=== PATIENT | female | born 1960 | race Caucasian/White ===

== ENCOUNTER 2016-11-07 16:37 | Emergency (ER) | payer OTHER, SELFPAY ==
[2016-11-07 16:48] VITALS: O2SAT 95
--- NOTE | 2016-11-07 17:24 | ERPHSYRPT ---
- History of Present Illness Time Seen by Provider: 11/07/16 16:42 Source: patient, family (sister) Patient Subjective Stated Complaint: lower back and bilat leg pain Triage Nursing Assessment: has chronic back pain and has been having rt and lt leg 'soreness and muscle spasms for days'. denies injury. pedal pulse present. states pain to back is a normal 7/10 daily so that pain is the same with increased deficit to bilat lower legs. Physician History: CC: leg cramping Hx: 56 y/o patient of Dr Stallworth on neurontin, norco, klonopin for chronic pain syndrome. She had 3 month hx of cramping in leg, worse at night. None today. Called the office to get a cream and was told had to wait on an appt. She has chronic back pain. No fall or injury. She takes cholesterol meds. She has tried to eat bananas. Chronic tingling in legs. Allergies/Adverse Reactions: No Known Drug Allergies Allergy (Verified 11/07/16 16:48) Home Medications: Aspirin 81 mg PO DAILY 01/13/12 [History] Hydrochlorothiazide 25 mg [hydroDIURIL 25 MG] 25 mg PO DAILY 01/13/12 [ History] Hydrocodone/Acetaminophen [[place] 10-325 Tablet] 1 tab PO QID 01/13/12 [History] Metformin HCl 500 mg [Glucophage 500 MG] 1,000 mg PO BIDWMEALS 01/13/12 [ History] Ramipril 2.5 mg PO DAILY 01/13/12 [History] Clonazepam 1 mg PO BID 10/02/14 [History] Simvastatin 40 mg [Zocor 40 mg] 40 mg PO QHS 08/28/15 [History] Gabapentin 600 mg PO TID 11/07/16 [History] Venlafaxine HCl [Venlafaxine HCl ER] 150 mg PO DAILY 11/07/16 [History] Hx Tetanus, Diphtheria Vaccination/Date Given: Yes Hx Influenza Vaccination/Date Given: Yes Hx Pneumococcal Vaccination/Date Given: Yes Immunizations Up to Date: Yes - Review of Systems Constitutional: No Fever, No Chills Musculoskeletal: Myalgias (legs), No Back Pain, No Neck Pain, No Joint Pain Skin: No Rash Neurological: Parasthesia (chronic in legs), No Focal Weakness, No Headache - Past Medical History Pertinent Past Medical History: Yes Neurological History: Other ENT History: No Pertinent History Cardiac History: High Cholesterol, Hypertension, Other Respiratory History: Sleep Apnea Endocrine Medical History: Diabetes Type II Musculoskeletal History: Degenerative Disk Disease, Other GI Medical History: No Pertinent History History: Other Psycho-Social History: Anxiety, Depression Female Reproductive Disorders: No Pertinent History Other Medical History: Chronic back pain. Neuropathy - Past Surgical History Past Surgical History: Yes Neuro Surgical History: No Pertinent History Cardiac: Cardiac Catheterization Respiratory: No Pertinent History Gastrointestinal: Cholecystectomy Genitourinary: No Pertinent History Musculoskeletal: Orthopedic Surgery Female Surgical History: Section, Hysterectomy Other Surgical History: cyst removed from ovaries. BUTCH - Social History Smoking Status: Current every day smoker How long have you smoked: 40years Exposure to second hand smoke: Yes Drug Use: none Patient Lives Alone: No - Female History Hx Now: No - Nursing Vital Signs Nursing Vital Signs: Initial Vital Signs Temperature 99 F Temperature Source Oral Respiratory Rate 18 Blood Pressure [Right Arm] 151/79 Pain Intensity [Left Calf] 6 Pain Intensity 7 - Physical Exam General Appearance: alert Eye Exam: PERRL/EOMI Ears, Nose, Throat Exam: moist mucous membranes Neck Exam: normal inspection, non-tender, supple Respiratory Exam: normal breath sounds Cardiovascular Exam: regular rate/rhythm Gastrointestinal/Abdomen Exam: soft, No tenderness, No distention Extremity Exam: normal inspection, normal range of motion, other (1+ bilateral DP pulses) Neurologic Exam: alert, oriented x 3, cooperative, sensation nml, No motor deficits Skin Exam: warm, dry, No rash SpO2 Interpretation: normal SpO2: 95 Oxygen Delivery: Room Air - Course Nursing assessment & vital signs reviewed: Yes Ordered Tests: Active Orders 24 hr Category Date Time Status BMP Stat Lab 11/07/16 17:25 Completed CK-Creatinine Phosphokinase Stat Lab 11/07/16 17:25 Completed Lab/Rad Data: Laboratory Result Diagrams 11/07/16 17:25 Laboratory Results 11/07/16 Range/Units 17:25 Sodium 139 (136-145) mEq/L Potassium 3.5 (3.5-5.1) mEq/L Chloride 102 (98-107) mEq/L Carbon Dioxide 27.4 (21-32) mEq/L Anion Gap 13.4 (5-15) MEQ/L BUN 11 (9-20) mg/dL Creatinine 0.86 (0.55-1.30) mg/dl Estimated GFR > 60 ML/MIN Glucose 217 H (70-110) MG/DL Calcium 8.5 (8.5-10.1) mg/dL Creatine Kinase 153 (26-192) U/L - Progress Progress Note: 11/07/16 17:23 Explained to pt that she is already on klonopin, norco, and high dose neurontin. She needs to see Dr Stallworth for her chronic issue. No sign of new back problem. Will check ck and K to rule abnormality metabolically which could be cause for her muscle cramping. 11/07/16 18:14 CK and K ok. Advised sugar a little high. She will use icy hot or bengay and continue meds as already prescribed by Dr Stallworth and have office follow up. Counseled pt/family regarding: lab results, diagnosis, need for follow-up - Departure Time of Disposition: 18:15 Departure Disposition: Home Clinical Impression: Leg cramps, Neuropathy Condition: Stable Critical Care Time: No Referrals: NIKOLAS STALLWORTH MD [Primary Care Provider] - Instructions: Diabetic Neuropathy Additional Instructions: Try [place] or icy hot. Continue your medications as already prescribed by Dr Stallworth. Follow up with Dr Stallworth.
[2016-11-07 17:59] LABS: ANION GAP 13.4 MEQ/L (5-15); BLOOD UREA NITROGEN 11 mg/dL (9-20); CHLORIDE 102 mEq/L (98-107); Carbon Dioxide 27.4 mEq/L (21-32); Glucose 217 MG/DL (70-110); Potassium 3.5 mEq/L (3.5-5.1); SODIUM 139 mEq/L (136-145)
[2016-11-07 18:47] VITALS: BP 126/83; PULSE 83
== END 2016-11-07 18:45 | disposition home or self-care (01) ==
LOC: ED 16:37
DX: R25.2 Cramp and spasm (principal); G62.9 Polyneuropathy, unspecified; M54.5 Low back pain; M79.662 Pain in left lower leg; M79.661 Pain in right lower leg; E78.00 Pure hypercholesterolemia, unspecified; I10 Essential (primary) hypertension; E11.9 Type 2 diabetes mellitus without complications; G47.30 Sleep apnea, unspecified
CPT/HCPCS: 36415; 80048; 82550; 99283

== ENCOUNTER 2016-11-12 13:52 | Observation (INO) | payer OTHER, SELFPAY ==
[2016-11-12] MEDS ORDERED: BABY ASPIRIN 81 MG CHEW PO ONE (14:11)
--- NOTE | 2016-11-12 14:19 | ERPHSYRPT ---
- History of Present Illness Time Seen by Provider: 11/12/16 14:06 Historian: patient Exam Limitations: no limitations Patient Subjective Stated Complaint: cp since 0900 Triage Nursing Assessment: mid sternal nonradiating chest pain since 0900. no diaphoresis with sob and nausea. states pain has been intermittent for weeks but stressful situation at home today caused cp to come and not leave. skin warm and dry. resp easy. tearful. pain worse with deep breath. Physician History: 56-year-old white female with history of high blood pressure, sleep apnea, diabetes, degenerative disc disease, hypercholesterolemia, anxiety, depression, chronic back pain, neuropathy Patient arrives with complaints of pain in the anterior chest which has been going off-and-on for 2 weeks she states that about 9:00 today she began having pain while being upset over her granddaughter she describes this pain as a dullness associated with shortness of breath and nausea he states that the pain she had been having for 2 weeks was going away with this was not. She is not having fevers no cough no abdominal pain. Past medical history includes high blood pressure sleep apnea degenerative disc disease diabetes hypercholesterolemia and anxiety, depression, chronic back pain, neuropathy, degenerative disc disease. Past surgical history includes cardiac catheter cholecystectomy hysterectomy and cyst removed from her ovaries. Social history positive tobacco use. Timing/Duration: today (9:00 this morning) Activities at Onset: emotional stress (upset over granddaughter) Quality: aching Location: substernal Chest Pain Radiation: no radiation Severity of Pain-Max: moderate Severity of Pain-Current: moderate Modifying Factors: Improves With: aspirin (took 81 mg of aspirin at hom[facility]is morning). Worsens With: antacids, breathing, coughing, defecating, eating, exertion, lying down, morphine, movement, nitroglycerin, oxygen, palpation, rest , sitting up, change in position Associated Symptoms: nausea, shortness of breath, No vomiting, No palpitations, No heartburn, No abdominal pain, No cough, No hurts to breathe, No diaphoresis, No chills, No fever, No fatigue, No weakness, No swelling/lump in chest, No syncope, No rash, No headache, No dizziness, No edema, No back pain Prior Chest Pain/Cardiac Workup: cardiac cath Nitro Today/Relief: no nitro taken today Aspirin Treatment Today: 81 mg x 1 (81 mg at home), 81 mg x 3 ( 243 mg in ER) Allergies/Adverse Reactions: No Known Drug Allergies Allergy (Verified 11/12/16 14:00) Home Medications: Aspirin 81 mg PO DAILY 01/13/12 [History] Hydrochlorothiazide 25 mg [hydroDIURIL 25 MG] 25 mg PO DAILY 01/13/12 [ History] Hydrocodone/Acetaminophen [[place] 10-325 Tablet] 1 tab PO QID 01/13/12 [History] Metformin HCl 500 mg [Glucophage 500 MG] 1,000 mg PO BIDWMEALS 01/13/12 [ History] Ramipril 2.5 mg PO DAILY 01/13/12 [History] Clonazepam 1 mg PO BID 10/02/14 [History] Simvastatin 40 mg [Zocor 40 mg] 40 mg PO QHS 08/28/15 [History] Gabapentin 600 mg PO TID 11/07/16 [History] Venlafaxine HCl [Venlafaxine HCl ER] 150 mg PO DAILY 11/07/16 [History] Hx Tetanus, Diphtheria Vaccination/Date Given: Yes Hx Influenza Vaccination/Date Given: No Hx Pneumococcal Vaccination/Date Given: No Immunizations Up to Date: Yes - Review of Systems Constitutional: No Fever, No Chills Eyes: No Symptoms Ears, Nose, & Throat: No Symptoms Respiratory: No Cough, No Dyspnea Cardiac: Chest Pain, Edema (feels like she has edema in her feet), No Palpitations, No Syncope, No Orthopnea Abdominal/Gastrointestinal: Nausea, No Abdominal Pain, No Vomiting, No Diarrhea , No Constipation, No Hematemesis, No Hematochezia, No Melena, No Dysphagia, No Appetite Changes Genitourinary Symptoms: No Dysuria Musculoskeletal: No Back Pain, No Neck Pain Skin: No Rash Neurological: No Symptoms Psychological: No Symptoms Endocrine: No Symptoms All Other Systems: Reviewed and Negative - Past Medical History Pertinent Past Medical History: Yes Neurological History: Other ENT History: No Pertinent History Cardiac History: High Cholesterol, Hypertension, Other Respiratory History: Sleep Apnea Endocrine Medical History: Diabetes Type II Musculoskeletal History: Degenerative Disk Disease, Other GI Medical History: No Pertinent History History: Other Psycho-Social History: Anxiety, Depression Female Reproductive Disorders: No Pertinent History Other Medical History: Chronic back pain. Neuropathy - Past Surgical History Past Surgical History: Yes Neuro Surgical History: No Pertinent History Cardiac: Cardiac Catheterization Respiratory: No Pertinent History Gastrointestinal: Cholecystectomy Genitourinary: No Pertinent History Musculoskeletal: Orthopedic Surgery Female Surgical History: Section, Hysterectomy Other Surgical History: cyst removed from ovaries. BUTCH - Social History Smoking Status: Current every day smoker How long have you smoked: 40years Exposure to second hand smoke: Yes Drug Use: none Patient Lives Alone: No - Female History Hx Now: No - Nursing Vital Signs Temperature: 98.0 F Temperature Source: Oral Pulse Rate: 92 Respiratory Rate: 18 Pain Intensity: 7 - Physical Exam General Appearance: mild distress, other (well-developed well-nourished white female tearful) Eye Exam: PERRL/EOMI, eyes nml inspection Ears, Nose, Throat Exam: normal ENT inspection, moist mucous membranes Neck Exam: normal inspection, non-tender, supple, full range of motion Respiratory Exam: normal breath sounds, lungs clear, No respiratory distress Cardiovascular Exam: regular rate/rhythm, normal heart sounds Gastrointestinal/Abdomen Exam: soft, No tenderness, No mass Back Exam: normal inspection, No CVA tenderness, No vertebral tenderness Extremity Exam: normal inspection, normal range of motion Neurologic Exam: alert, oriented x 3, cooperative, normal mood/affect, sensation nml, No motor deficits Skin Exam: normal color, warm, dry SpO2 Interpretation: normal (98%) SpO2: 98 Oxygen Delivery: Room Air - Course Nursing assessment & vital signs reviewed: Yes EKG Interpreted by Me: RATE (102 bpm), NORMAL AXIS, Other (EKG sinus rhythm [address] or T wave changes noted normal axis) - Radiology Exams Chest X-ray Interpretation: Discussed w/ radiologist (chest x-ray: Hyperinflated with right infrahilar infiltrate versus atelectasis. Remaining heart, lungs, and bony thorax unremarkable) Ordered Tests: Active Orders 24 hr Category Date Time Status Field Technical Specialist STAT Care 11/12/16 14:11 Active EKG-ER Only STAT Care 11/12/16 14:11 Active IV Insertion STAT Care 11/12/16 14:11 Active CHEST 1 VIEW (PORTABLE) Stat Exams 11/12/16 14:11 Completed CBC W DIFF Stat Lab 11/12/16 14:15 Completed CMP Stat Lab 11/12/16 14:15 Completed D-DIMER QUANTITATION Stat Lab 11/12/16 14:15 Completed TROPONIN Q3H Lab 11/12/16 14:30 Completed TROPONIN Q3H Lab 11/12/16 17:15 Ordered TROPONIN Q3H Lab 11/12/16 20:15 Ordered TROPONIN Q3H Lab 11/12/16 23:15 Ordered TROPONIN Q3H Lab 11/13/16 02:15 Ordered Medication Summary Discontinued Medications Generic Name Dose Route Start Last Admin Trade Name Freq PRN Reason Stop Dose Admin Aspirin 243 mg 11/12/16 14:11 11/12/16 14:20 Baby Aspirin 81 Mg Chew PO 11/12/16 14:12 243 mg STAT ONE Administration Lab/Rad Data: Laboratory Result Diagrams 11/12/16 14:15 11/12/16 14:15 Laboratory Results 11/12/16 11/12/16 11/12/16 Range/Units 14:30 14:15 14:15 WBC (4.0-10.5) K/mm3 RBC (4.1-5.4) M/mm3 Hgb (12.0-16.0) gm/dl Hct (35-47) % MCV (78-100) fl MCH (26-32) pg MCHC (32-36) g/dl RDW (11.5-14.0) % Plt Count (150-450) K/mm3 MPV (6-9.5) fl Gran % (36.0-66.0) % Lymphocytes % (24.0-44.0) % Monocytes % (0.0-12.0) % Eosinophils % (0.00-5.0) % Basophils % (0.0-0.4) % Basophils # (0-0.4) D-Dimer 0.52 H* (0.00-0.49) mg/L Sodium 140 (136-145) mEq/L Potassium 3.7 (3.5-5.1) mEq/L Chloride 103 (98-107) mEq/L Carbon Dioxide 23.6 (21-32) mEq/L Anion Gap 16.6 H (5-15) MEQ/L BUN 18 (9-20) mg/dL Creatinine 0.83 (0.55-1.30) mg/dl Estimated GFR > 60 ML/MIN Glucose 118 H (70-110) MG/DL Calcium 8.7 (8.5-10.1) mg/dL Total Bilirubin 0.5 (0.2-1.0) mg/dL AST 76 H (15-37) U/L ALT 63 (12-78) U/L Alkaline Phosphatase 76 (46-116) U/L Troponin I < 0.017 (0.000-0.056) ng/ml Serum Total Protein 8.4 H (6.4-8.2) gm/dL Albumin 3.4 (3.4-5.0) g/dL 11/12/16 Range/Units 14:15 WBC 8.3 (4.0-10.5) K/mm3 RBC 4.01 L (4.1-5.4) M/mm3 Hgb 11.9 L (12.0-16.0) gm/dl Hct 36.1 (35-47) % MCV 90.0 (78-100) fl MCH 29.6 (26-32) pg MCHC 33.0 (32-36) g/dl RDW 14.6 H (11.5-14.0) % Plt Count 106 L (150-450) K/mm3 MPV 12.2 H (6-9.5) fl Gran % 62.1 (36.0-66.0) % Lymphocytes % 32.4 (24.0-44.0) % Monocytes % 5.2 (0.0-12.0) % Eosinophils % 0.2 (0.00-5.0) % Basophils % 0.1 (0.0-0.4) % Basophils # 0.01 (0-0.4) D-Dimer (0.00-0.49) mg/L Sodium (136-145) mEq/L Potassium (3.5-5.1) mEq/L Chloride (98-107) mEq/L Carbon Dioxide (21-32) mEq/L Anion Gap (5-15) MEQ/L BUN (9-20) mg/dL Creatinine (0.55-1.30) mg/dl Estimated GFR ML/MIN Glucose (70-110) MG/DL Calcium (8.5-10.1) mg/dL Total Bilirubin (0.2-1.0) mg/dL AST (15-37) U/L ALT (12-78) U/L Alkaline Phosphatase (46-116) U/L Troponin I (0.000-0.056) ng/ml Serum Total Protein (6.4-8.2) gm/dL Albumin (3.4-5.0) g/dL - Progress Air Movement: fair Progress Note: 11/12/16 15:36 This is a 56-year-old white female with intermittent pain in her chest for 2 weeks. Described as an aching going on this time since 9:00 this morning associated with some shortness of breath some nausea. Patient's pain came on with stress. Troponin is normal EKG no acute changes. D-dimer slight elevation to 0.52, chest x-ray right infrahilar atelectasis versus infiltrate white count is normal patient without fevers Case is discussed with Dr. Nesbitt will place patient in observation telemetry continue aspirin Will obtain a CTA of the chest and abdomen during admission - Departure Time of Disposition: 15:38 Departure Disposition: Observation Clinical Impression: Chest pain Qualifiers: Chest pain type: unspecified Qualified Code(s): R07.9 - Chest pain, unspecified Condition: Fair Critical Care Time: No
[2016-11-12 14:21] LABS: BASOPHIL % 0.1 % (0.0-0.4); Eosinophil % 0.2 % (0.00-5.0); Granulocytes % 62.1 % (36.0-66.0); Lymphocytes % 32.4 % (24.0-44.0); Mean Platelet Volume 12.2 fl (6-9.5); Monocytes % 5.2 % (0.0-12.0); Platelet Count 106 K/mm3 (150-450); Red Blood Count 4.01 M/mm3 (4.1-5.4); Red Cell Distribution Width 14.6 % (11.5-14.0); White Blood Count 8.3 K/mm3 (4.0-10.5)
[2016-11-12 14:23] LABS: Mean Corpuscular Hemoglobin 29.6 pg (26-32)
--- NOTE | 2016-11-12 14:39 | XRAY ---
Indication: Chest pain. Comparison: November 22, 2015. Portable apical lordotic chest again hyperinflated with new subtle right infrahilar infiltrate versus atelectasis. Remaining heart, lungs, and bony thorax unremarkable.
[2016-11-12 14:44] LABS: ALBUMIN 3.4 g/dL (3.4-5.0); ALKALINE PHOSPHATASE 76 U/L (46-116); ANION GAP 16.6 MEQ/L (5-15); BILIRUBIN,TOTAL 0.5 mg/dL (0.2-1.0); BLOOD UREA NITROGEN 18 mg/dL (9-20); CHLORIDE 103 mEq/L (98-107); Carbon Dioxide 23.6 mEq/L (21-32); Glucose 118 MG/DL (70-110); Potassium 3.7 mEq/L (3.5-5.1); SGOT/AST 76 U/L (15-37); SGPT/ALT 63 U/L (12-78); SODIUM 140 mEq/L (136-145); Total Protein 8.4 gm/dL (6.4-8.2)
[2016-11-12] MEDS ORDERED: NovoLOG Insulin SQ PRN (16:10)
[2016-11-12] MEDS ORDERED: NovoLIN R SQ PRN (16:38)
--- NOTE | 2016-11-12 16:38 | PCM.HP ---
History of Present Illness - Chief Complaint Chief Complaint: chest pain History of Present Illness: is a 56 year old female who presented to the ER with chest pain that began early this morning, she described a sharp pain that is dull in the center of her chest. She also had some nausea. She admits to a great deal of stress over a grandchild that was living in her home that is 3 months old, mother of baby took him away and it has had her under a great deal of stress, she is tearful in talking about this incident. - Review of Systems Constitutional: No Fever, No Chills Respiratory: No Cough, No Short Of Breath Cardiac: Chest Pain Abdominal/Gastrointestinal: No Abdominal Pain, No Nausea, No Vomiting, No Diarrhea Psychological: Anxiety, No Suicidal Ideations, No Homicidal Ideations All Other Systems: Reviewed and Negative Medications & Allergies Home Medications: Home Medication List Aspirin 81 mg PO DAILY 01/13/12 [History Confirmed 11/12/16] Hydrochlorothiazide 25 mg [hydroDIURIL 25 MG] 25 mg PO DAILY 01/13/12 [ History Confirmed 11/12/16] Hydrocodone/Acetaminophen [[place] 10-325 Tablet] 1 tab PO QID 01/13/12 [History Confirmed 11/12/16] Metformin HCl 500 mg [Glucophage 500 MG] 1,000 mg PO BIDWMEALS 01/13/12 [ History Confirmed 11/12/16] Ramipril 2.5 mg PO DAILY 01/13/12 [History Confirmed 11/12/16] Clonazepam 1 mg PO BID 10/02/14 [History Confirmed 11/12/16] Simvastatin 40 mg [Zocor 40 mg] 40 mg PO QHS 08/28/15 [History Confirmed ] Gabapentin 600 mg PO TID 11/07/16 [History Confirmed 11/12/16] Venlafaxine HCl [Venlafaxine HCl ER] 150 mg PO DAILY 11/07/16 [History Confirmed 11/12/16] Allergies/Adverse Reactions: Allergies Allergy/AdvReac Type Severity Reaction Status Date / Time No Known Drug Allergies Allergy Verified 11/12/16 14:00 - Past Medical History Past Medical History: Yes Neurological History: Other ENT History: No Pertinent History Cardiac History: High Cholesterol, Hypertension, Other Respiratory History: Sleep Apnea Endocrine Medical History: Diabetes Type II Musculoskelatal History: Degenerative Disk Disease, Other GI Medical History: No Pertinent History History: Other Pyscho-Social History: Anxiety, Depression Reproductive Disorders: No Pertinent History Comment: Chronic back pain. Neuropathy - Past Surgical History Past Surgical History: Yes Neuro Surgical History: No Pertinent History Cardiac History: Cardiac Catheterization Respiratory Surgery: No Pertinent History GI Surgical History: Cholecystectomy Genitourinary Surgical Hx: No Pertinent History Musculskeletal Surgical Hx: Orthopedic Surgery Female Surgical History: Section, Hysterectomy Other Surgical History: cyst removed from ovaries. BUTCH - Social History Smoking Status: Current every day smoker How long have you smoked: 40years Exposure to second hand smoke: Yes Alcohol: None Drug Use: none - Physical Exam Vital Signs: Vital Signs - 24 hr Temp Pulse Pulse Resp BP Pulse Ox 11/12/16 15:38 98.0 F 92 H 18 98 11/12/16 15:16 76 20 101/68 94 L 11/12/16 13:53 98.0 F 92 H 88 18 135/84 98 General Appearance: no apparent distress, alert, other (tearful) Neurologic Exam: alert, oriented x 3, cooperative, normal mood/affect, nml cerebellar function, nml station & gait, sensation nml, No motor deficits Eye Exam: PERRL/EOMI, eyes nml inspection Respiratory Exam: normal breath sounds, lungs clear, No respiratory distress Cardiovascular Exam: regular rate/rhythm, normal heart sounds, normal peripheral pulses Gastrointestinal/Abdomen Exam: soft, normal bowel sounds, No tenderness, No mass Extremity Exam: normal inspection, normal range of motion, pelvis stable Skin Exam: normal color, warm, dry, No rash Results - Radiology Impressions Radiology Exams & Impressions: Radiology Procedures Category Date Time Status CHEST WITH CONTRAST [CT] Stat Exams 11/12/16 16:10 Ordered Assessment/Plan (1) Chest pain Current Visit: Yes Status: Acute Qualifiers: Chest pain type: unspecified Qualified Code(s): R07.9 - Chest pain, unspecified Assessment & Plan: likely related to stress reaction, r/o RI. nothing acute on EKG, initial troponin negative Code(s): R07.9 - CHEST PAIN, UNSPECIFIED (2) Elevated d-dimer Current Visit: Yes Status: Acute Assessment & Plan: CTA chest r/o PE Code(s): R79.89 - OTHER SPECIFIED ABNORMAL FINDINGS OF BLOOD CHEMISTRY (3) Chronic low back pain Current Visit: No Status: Acute Code(s): M54.5 - LOW BACK PAIN; G89.29 - OTHER CHRONIC PAIN (4) Diabetes Current Visit: No Status: Acute Code(s): E11.9 - TYPE 2 DIABETES MELLITUS WITHOUT COMPLICATIONS
[2016-11-12] MEDS ORDERED: Ativan 2 MG/1 ML VIAL IV PRN (16:39)
[2016-11-12] MEDS ORDERED: Ambien 5 MG Tablet PO PRN (16:40)
[2016-11-12] MEDS ORDERED: ENOXAPARIN SODIUM SQ SCH (17:00)
[2016-11-12] MEDS: Norco 10/325 MG Tablet PO SCH ×2 (17:23→22:24)
--- NOTE | 2016-11-12 17:29 | XRAY ---
Indication: Chest pain and short of breath. Elevated d-dimer. Multiple contiguous axial images obtained through the chest using 80 cc Isovue 370 contrast and PE protocol. Comparison: None There is good opacification of the pulmonary arteries to include the lobar and segmental branches. No filling defect or pulmonary embolus. Heart is not enlarged. Aorta is normal in course and caliber with very minimal scattered calcifications. No pathologic mediastinal/hilar lymphadenopathy. Examination of the lung parenchyma demonstrates hyperinflated lungs with minimal scattered peripheral fibrosis/scarring bilaterally. Minimal subpleural cystic changes in both upper lobes. No suspicious pulmonary mass, infiltrate, consolidation, or effusion. Bony thorax intact with minimal degenerative changes throughout the spine. Limited upper abdomen demonstrates fatty liver and 14 cm splenomegaly. Impression: 1. Negative for pulmonary embolus. No acute cardiopulmonary abnormalities. 2. Hyperinflated lungs with minimal fibrosis/scarring and subpleural cystic changes presumed chronic. 3. Incidental fatty liver and splenomegaly. CTDI 23.69
[2016-11-12] MEDS ORDERED: NEURONTIN 300 MG PO SCH (22:00)
[2016-11-12] MEDS ORDERED: ZOCOR 20MG PO SCH (22:00)
[2016-11-12] MEDS ORDERED: NON-FORMULARY ITEM (Gabapentin [Gabapentin] 600 MG) PO SCH (22:00)
[2016-11-12] MEDS ORDERED: NON-FORMULARY ITEM (Simvastatin 40 Mg [Zocor 40 Mg] 40 MG) PO SCH (22:00)
[2016-11-13 01:10] VITALS: O2SAT 95
[2016-11-13 02:49] LABS: BASOPHIL % 0.2 % (0.0-0.4); Eosinophil % 0.6 % (0.00-5.0); Granulocytes % 53.8 % (36.0-66.0); Lymphocytes % 38.5 % (24.0-44.0); Mean Cell Volume 90.3 fl (78-100); Mean Corpuscular Hemoglobin 29.2 pg (26-32); Mean Platelet Volume 11.4 fl (6-9.5); Monocytes % 6.9 % (0.0-12.0); Platelet Count 87 K/mm3 (150-450); Red Blood Count 3.83 M/mm3 (4.1-5.4); Red Cell Distribution Width 14.3 % (11.5-14.0); White Blood Count 4.8 K/mm3 (4.0-10.5)
[2016-11-13 03:23] LABS: ALBUMIN 3.1 g/dL (3.4-5.0); ALKALINE PHOSPHATASE 80 U/L (46-116); ANION GAP 12.3 MEQ/L (5-15); BILIRUBIN,TOTAL 0.4 mg/dL (0.2-1.0); BLOOD UREA NITROGEN 12 mg/dL (9-20); CHLORIDE 103 mEq/L (98-107); Carbon Dioxide 27.5 mEq/L (21-32); Glucose 140 MG/DL (70-110); Potassium 3.3 mEq/L (3.5-5.1); SGOT/AST 68 U/L (15-37); SGPT/ALT 60 U/L (12-78); SODIUM 140 mEq/L (136-145)
--- NOTE | 2016-11-13 08:02 | PCM.DS ---
Discharge Summary Date of Admission: 11/12/16 16:08 Admitting Physician: NIKOLAS STALLWORTH Primary Care Provider: NIKOLAS STALLWORTH Allergies Allergies No Known Drug Allergies Allergy (Verified 11/12/16 14:00) Hospital Summary - Hospital Course Hospital Course: patient was admitted with chest pain, had a sharp/burning type of pain. no vomiting, no shortness of breath. VT ruled out, cta negative - Vitals & Intake/Output Vital Signs: Vital Signs Temperature 97.7 F 11/13/16 03:55 Pulse Rate 67 11/13/16 03:55 Respiratory Rate 18 11/13/16 03:55 Blood Pressure 110/53 11/13/16 03:55 O2 Sat by Pulse Oximetry 95 11/13/16 03:55 Intake & Output: Intake & Output 11/10/16 11/11/16 11/12/16 11/13/16 11:59 11:59 11:59 11:59 Intake Total 240 Balance 240 Weight 89.358 kg - Lab Result Diagrams: 11/13/16 02:42 11/13/16 02:42 Lab Results-Last 24 Hrs: Accuchecks Date 11/13/16 Date 11/12/16 Date 11/12/16 Time 07:25 Time 20:52 Time 17:12 Accucheck Value: 195 Accucheck Value: 105 Lab Results-Last 24 Hours 11/12/16 11/12/16 11/13/16 Range/Units 20:25 23:26 02:42 WBC (4.0-10.5) K/mm3 RBC (4.1-5.4) M/mm3 Hgb (12.0-16.0) gm/dl Hct (35-47) % MCV (78-100) fl MCH (26-32) pg MCHC (32-36) g/dl RDW (11.5-14.0) % Plt Count (150-450) K/mm3 MPV (6-9.5) fl Gran % (36.0-66.0) % Lymphocytes % (24.0-44.0) % Monocytes % (0.0-12.0) % Eosinophils % (0.00-5.0) % Basophils % (0.0-0.4) % Basophils # (0-0.4) Sodium (136-145) mEq/L Potassium (3.5-5.1) mEq/L Chloride (98-107) mEq/L Carbon Dioxide (21-32) mEq/L Anion Gap (5-15) MEQ/L BUN (9-20) mg/dL Creatinine (0.55-1.30) mg/dl Estimated GFR ML/MIN Glucose (70-110) MG/DL Calcium (8.5-10.1) mg/dL Total Bilirubin (0.2-1.0) mg/dL AST (15-37) U/L ALT (12-78) U/L Alkaline Phosphatase (46-116) U/L Troponin I < 0.017 < 0.017 < 0.017 (0.000-0.056) ng/ml Serum Total Protein (6.4-8.2) gm/dL Albumin (3.4-5.0) g/dL 11/13/16 11/13/16 Range/Units 02:42 02:42 WBC 4.8 (4.0-10.5) K/mm3 RBC 3.83 L (4.1-5.4) M/mm3 Hgb 11.2 L (12.0-16.0) gm/dl Hct 34.6 L (35-47) % MCV 90.3 (78-100) fl MCH 29.2 (26-32) pg MCHC 32.4 (32-36) g/dl RDW 14.3 H (11.5-14.0) % Plt Count 87 L (150-450) K/mm3 MPV 11.4 H (6-9.5) fl Gran % 53.8 (36.0-66.0) % Lymphocytes % 38.5 (24.0-44.0) % Monocytes % 6.9 (0.0-12.0) % Eosinophils % 0.6 (0.00-5.0) % Basophils % 0.2 (0.0-0.4) % Basophils # 0.01 (0-0.4) Sodium 140 (136-145) mEq/L Potassium 3.3 L (3.5-5.1) mEq/L Chloride 103 (98-107) mEq/L Carbon Dioxide 27.5 (21-32) mEq/L Anion Gap 12.3 (5-15) MEQ/L BUN 12 (9-20) mg/dL Creatinine 0.84 (0.55-1.30) mg/dl Estimated GFR > 60 ML/MIN Glucose 140 H (70-110) MG/DL Calcium 8.7 (8.5-10.1) mg/dL Total Bilirubin 0.4 (0.2-1.0) mg/dL AST 68 H (15-37) U/L ALT 60 (12-78) U/L Alkaline Phosphatase 80 (46-116) U/L Troponin I (0.000-0.056) ng/ml Serum Total Protein 8.0 (6.4-8.2) gm/dL Albumin 3.1 L (3.4-5.0) g/dL Micro Results-Entire Visit: Accuchecks Date 11/13/16 Date 11/12/16 Date 11/12/16 Time 07:25 Time 20:52 Time 17:12 Accucheck Value: 195 Accucheck Value: 105 - Radiology Exams Ordered Rad Exams-Entire Visit: Radiology Procedures Category Date Time Status CHEST WITH CONTRAST [CT] Stat Exams 11/12/16 16:10 Completed - Procedures and Test Procedures and Tests throughout Hospitalization: Therapy Orders & Screens 11/12/16 17:10 Smoking Cessation Education ONCE Comment: Diagnosis: chest pain Smoking Status: Current every day smoker How long have you smoked: 44 yrs Have you smoked in the past 12 months: Yes Approximately how many cigarettes per day: 30 Do you dip or chew tobacco: No 11/12/16 22:00 EKG ONCE Comment: Diagnosis: chest pain 11/13/16 05:00 EKG ONCE Comment: Diagnosis: chest pain 11/14/16 05:00 EKG ONCE Comment: Diagnosis: chest pain 11/15/16 05:00 EKG ONCE Comment: Diagnosis: chest pain Discharge Exam General Appearance: no apparent distress, alert Skin Exam: normal color, warm, dry Eye Exam: PERRL, EOMI, eyes nml inspection Respiratory Exam: normal breath sounds, lungs clear, No respiratory distress Cardiovascular Exam: regular rate/rhythm, normal heart sounds Gastrointestinal/Abdomen Exam: soft, No tenderness, No mass Extremity Exam: normal inspection, normal range of motion Final Diagnosis/Problem List - Final Discharge Diagnosis/Problem (1) Chest pain Current Visit: Yes Status: Acute Assessment & Plan: VT ruled out, likely stress reaction (2) Elevated d-dimer Current Visit: Yes Status: Acute Assessment & Plan: cta negative (3) Chronic low back pain Current Visit: No Status: Acute Assessment & Plan: stable (4) Diabetes Current Visit: No Status: Acute Assessment & Plan: well controlled, a1c 6.8% - Discharge Disposition: Home, Self-Care Condition: Stable Prescriptions: Continue Metformin HCl 500 mg [Glucophage 500 MG] 1,000 mg PO BIDWMEALS Hydrocodone/Acetaminophen [[place] 10-325 Tablet] 1 tab PO QID Aspirin 81 mg PO DAILY Ramipril 2.5 mg PO DAILY Hydrochlorothiazide 25 mg [hydroDIURIL 25 MG] 25 mg PO DAILY Clonazepam 1 mg PO BID Simvastatin 40 mg [Zocor 40 mg] 40 mg PO QHS Gabapentin 600 mg PO TID Venlafaxine HCl [Venlafaxine HCl ER] 150 mg PO DAILY Instructions: Chest Pain Follow up with: NIKOLAS STALLWORTH MD [Primary Care Provider] -
[2016-11-13 08:11] VITALS: BP 118/56; PULSE 72
[2016-11-13] MEDS ORDERED: Effexor XR 75 MG PO SCH (10:00)
[2016-11-13] MEDS ORDERED: NON-FORMULARY ITEM (Venlafaxine Hcl [Venlafaxine Hcl Er] 150 MG) PO SCH (10:00)
[2016-11-13] MEDS ORDERED: RAMIPRIL 2.5 MG PO SCH (10:00)
[2016-11-13] MEDS ORDERED: hydroDIURIL 25 MG PO SCH (10:00)
[2016-11-13] MEDS ORDERED: ECOTRIN 81 MG PO SCH (10:00)
[2016-11-13] MEDS ORDERED: Altace 1.25 MG PO SCH (10:00)
== END 2016-11-13 09:50 | disposition home or self-care (01) ==
LOC: ED 13:52 → MED SURG 16:08
PROVIDERS: ADMIT Family Medicine; ATTEND Family Medicine
DX: R07.9 Chest pain, unspecified (principal); M54.5 Low back pain; G89.29 Other chronic pain; F45.42 Pain disorder with related psychological factors; E11.9 Type 2 diabetes mellitus without complications; Z79.4 Long term (current) use of insulin; F41.8 Other specified anxiety disorders; I10 Essential (primary) hypertension; G47.30 Sleep apnea, unspecified; Z79.899 Other long term (current) drug therapy
CPT/HCPCS: 36000; 36415; 71010; 71260; 80053; 82962; 83036; 84484; 85025; 85379; 93005; 93041; 93268; 99285; G0378; J1650; J2060; A9270-GY

== ENCOUNTER 2017-04-06 14:10 | Observation (INO) | payer OTHER ==
[2017-04-06] MEDS ORDERED: Pepcid 20 MG VIAL IV ONE ×2 (14:31→14:44)
[2017-04-06] MEDS ORDERED: BABY ASPIRIN 81 MG CHEW PO ONE (14:31)
[2017-04-06] MEDS ORDERED: NITRO-BID 2% UD PACKETS TOP ONE (14:31)
[2017-04-06] MEDS ORDERED: ATARAX 25 MG PO ONE (14:32)
--- NOTE | 2017-04-06 14:36 | ERPHSYRPT ---
- History of Present Illness Time Seen by Provider: 04/06/17 14:15 Historian: patient Patient Subjective Stated Complaint: PT REPORTS LEFT SIDED CHEST PAIN BEGINNING YESTERDAY-RADIATING TO LEFT SHOULDER ET NECK-REPORTS RECENT PROBLEMS WITH HER LEFT LEG-REPORTS INCREASED STRESS-DENIES V/D-REPORTS NAUSEA Triage Nursing Assessment: PT HOWARD WARM ET [id number] EASY ET NONLABORED- SLIGHT WHEEZES NOTED-NO COUGH NOTED DURING TRIAGE ET PT DENIES RECENT COUGH-NO EDEMA NOTED-NO OBVIOUS INJURY TO LEFT LEG Physician History: CC: chest pain Hx: 56 y/o patient of Dr Stallworth/Vern. She has no hx of heart disease but is a smoker and has fam hx of heart disease. She recently returned from a [place] trip. She lost her this summer and has some stress. She reports tightness in left chest radiating to her neck since this AM. Not short of breath. No cough, fever, or chills. No abd pain. Timing/Duration: today (since AM) Severity of Pain-Max: moderate Severity of Pain-Current: moderate Nitro Today/Relief: no nitro taken today Aspirin Treatment Today: provided by ED Allergies/Adverse Reactions: No Known Drug Allergies Allergy (Verified 04/06/17 14:22) Home Medications: Aspirin 81 mg PO DAILY 01/13/12 [History] Hydrochlorothiazide 25 mg [hydroDIURIL 25 MG] 25 mg PO DAILY 01/13/12 [ History] Hydrocodone/Acetaminophen [[place] 10-325 Tablet] 1 tab PO QID 01/13/12 [History] Metformin HCl 500 mg [Glucophage 500 MG] 1,000 mg PO BIDWMEALS 01/13/12 [ History] Ramipril 2.5 mg PO DAILY 01/13/12 [History] Clonazepam 1 mg PO BID 10/02/14 [History] Simvastatin 40 mg [Zocor 40 mg] 40 mg PO QHS 08/28/15 [History] Gabapentin 600 mg PO TID 11/07/16 [History] Venlafaxine HCl [Venlafaxine HCl ER] 150 mg PO DAILY 11/07/16 [History] Hx Tetanus, Diphtheria Vaccination/Date Given: Yes Hx Influenza Vaccination/Date Given: No Hx Pneumococcal Vaccination/Date Given: No Immunizations Up to Date: Yes - Review of Systems Constitutional: No Fever, No Chills Eyes: No Symptoms Ears, Nose, & Throat: No Symptoms Respiratory: No Cough, No Dyspnea Cardiac: Chest Pain Abdominal/Gastrointestinal: No Abdominal Pain, No Nausea, No Vomiting Skin: No Rash Neurological: No Headache All Other Systems: Reviewed and Negative - Past Medical History Pertinent Past Medical History: Yes Neurological History: Other ENT History: No Pertinent History Cardiac History: High Cholesterol, Hypertension, Other Respiratory History: Sleep Apnea Endocrine Medical History: Diabetes Type II Musculoskeletal History: Degenerative Disk Disease, Other GI Medical History: No Pertinent History History: Other Psycho-Social History: Anxiety, Depression Female Reproductive Disorders: No Pertinent History Other Medical History: Chronic back pain. Neuropathy - Past Surgical History Past Surgical History: Yes Neuro Surgical History: No Pertinent History Cardiac: Cardiac Catheterization Respiratory: No Pertinent History Gastrointestinal: Cholecystectomy Genitourinary: No Pertinent History Musculoskeletal: Orthopedic Surgery Female Surgical History: Section, Hysterectomy Other Surgical History: cyst removed from ovaries. BUTCH - Social History Smoking Status: Current every day smoker How long have you smoked: 44 yrs Exposure to second hand smoke: Yes Drug Use: none Patient Lives Alone: No - Female History Hx Now: No - Nursing Vital Signs Nursing Vital Signs: Initial Vital Signs Temperature 98.9 F 04/06/17 14:18 Pulse Rate 80 04/06/17 14:18 Respiratory Rate 20 04/06/17 14:18 Blood Pressure 125/82 04/06/17 14:18 O2 Sat by Pulse Oximetry 95 04/06/17 14:18 Pain Scale Pain Intensity 4 - Physical Exam General Appearance: alert Eye Exam: PERRL/EOMI Ears, Nose, Throat Exam: normal ENT inspection, moist mucous membranes Neck Exam: normal inspection, non-tender, supple Respiratory Exam: normal breath sounds, lungs clear Cardiovascular Exam: regular rate/rhythm Gastrointestinal/Abdomen Exam: soft, No tenderness, No distention Extremity Exam: normal inspection, normal range of motion, No calf tenderness, No pedal edema Neurologic Exam: alert, oriented x 3, cooperative, sensation nml, No motor deficits Skin Exam: warm, dry, No rash SpO2 Interpretation: normal SpO2: 95 Oxygen Delivery: Room Air - Course Nursing assessment & vital signs reviewed: Yes EKG Interpreted by Me: RATE (81), Sinus Rhythm, NORMAL AXIS, NORMAL INTERVALS ( QTc 432), Non-specific ST Changes - Radiology Exams cxr X-ray Interpretation: Reviewed by me, Negative (with prominent lung markings) Ordered Tests: Active Orders 24 hr Category Date Time Status Donor Services Manager STAT Care 04/06/17 14:32 Active EKG-ER Only STAT Care 04/06/17 14:31 Active IV Insertion STAT Care 04/06/17 14:31 Active Pulse Oximetry (ED) STAT Care 04/06/17 14:31 Active CHEST 1 VIEW (PORTABLE) Stat Exams 04/06/17 14:32 Taken CBC W DIFF Stat Lab 04/06/17 14:31 Completed CMP Stat Lab 04/06/17 14:30 Completed D-DIMER QUANTITATION Stat Lab 04/06/17 14:31 Completed TROPONIN Q3H Lab 04/06/17 14:45 Completed TROPONIN Q3H Lab 04/06/17 17:45 Ordered TROPONIN Q3H Lab 04/06/17 20:45 Ordered TROPONIN Q3H Lab 04/06/17 23:45 Ordered TROPONIN Q3H Lab 04/07/17 02:45 Ordered Medication Summary Generic Name Dose Route Start Last Admin Trade Name Freq PRN Reason Stop Dose Admin Sodium Chloride 1,000 mls @ 50 mls/hr 04/06/17 14:45 04/06/17 15:01 Sodium Chloride 0.9% 1000 Ml IV 05/06/17 14:44 50 mls/hr .Q20H MYA Administration Discontinued Medications Generic Name Dose Route Start Last Admin Trade Name Freq PRN Reason Stop Dose Admin Aspirin 162 mg 04/06/17 14:31 04/06/17 15:00 Baby Aspirin 81 Mg Chew PO 04/06/17 14:32 162 mg STAT ONE Administration Aspirin Confirm 04/06/17 14:44 Baby Aspirin 81 Mg Chew Administered 04/06/17 14:45 Dose 162 mg .ROUTE .STK-MED ONE Famotidine 20 mg 04/06/17 14:31 04/06/17 15:01 Pepcid 20 Mg Vial IV 04/06/17 14:32 20 mg STAT ONE Administration Famotidine Confirm 04/06/17 14:44 Pepcid 20 Mg Vial Administered 04/06/17 14:45 Dose 20 mg IV .STK-MED ONE Hydroxyzine HCl 25 mg 04/06/17 14:32 04/06/17 15:01 Atarax 25 Mg PO 04/06/17 14:33 25 mg STAT ONE Administration Hydroxyzine HCl Confirm 04/06/17 14:44 Atarax 25 Mg Administered 04/06/17 14:45 Dose 25 mg .ROUTE .STK-MED ONE Nitroglycerin 1 gm 04/06/17 14:31 04/06/17 15:01 Nitro-Bid 2% Ud Packets TOP 04/06/17 14:32 1 gm STAT ONE Administration Nitroglycerin Confirm 04/06/17 14:44 Nitro-Bid 2% Ud Packets Administered 04/06/17 14:45 Dose 1 gm .ROUTE .STK-MED ONE Lab/Rad Data: Laboratory Result Diagrams 04/06/17 14:31 04/06/17 14:30 Laboratory Results 04/06/17 04/06/17 04/06/17 Range/Units 14:45 14:31 14:31 WBC 5.8 (4.0-10.5) K/mm3 RBC 4.01 L (4.1-5.4) M/mm3 Hgb 11.5 L (12.0-16.0) gm/dl Hct 35.6 (35-47) % MCV 88.8 (78-100) fl MCH 28.6 (26-32) pg MCHC 32.3 (32-36) g/dl RDW 14.8 H (11.5-14.0) % Plt Count 100 L (150-450) K/mm3 MPV 11.4 H (6-9.5) fl Gran % 59.4 (36.0-66.0) % Lymphocytes % 33.7 (24.0-44.0) % Monocytes % 6.2 (0.0-12.0) % Eosinophils % 0.5 (0.00-5.0) % Basophils % 0.2 (0.0-0.4) % Basophils # 0.01 (0-0.4) D-Dimer 386 (0-500) ng/mL Sodium (136-145) mEq/L Potassium (3.5-5.1) mEq/L Chloride (98-107) mEq/L Carbon Dioxide (21-32) mEq/L Anion Gap (5-15) MEQ/L BUN (9-20) mg/dL Creatinine (0.55-1.30) mg/dl Estimated GFR ML/MIN Glucose (70-110) MG/DL Calcium (8.5-10.1) mg/dL Total Bilirubin (0.2-1.0) mg/dL AST (15-37) U/L ALT (12-78) U/L Alkaline Phosphatase (46-116) U/L Troponin I < 0.017 (0.000-0.056) ng/ml Serum Total Protein (6.4-8.2) gm/dL Albumin (3.4-5.0) g/dL 04/06/17 Range/Units 14:30 WBC (4.0-10.5) K/mm3 RBC (4.1-5.4) M/mm3 Hgb (12.0-16.0) gm/dl Hct (35-47) % MCV (78-100) fl MCH (26-32) pg MCHC (32-36) g/dl RDW (11.5-14.0) % Plt Count (150-450) K/mm3 MPV (6-9.5) fl Gran % (36.0-66.0) % Lymphocytes % (24.0-44.0) % Monocytes % (0.0-12.0) % Eosinophils % (0.00-5.0) % Basophils % (0.0-0.4) % Basophils # (0-0.4) D-Dimer (0-500) ng/mL Sodium 139 (136-145) mEq/L Potassium 3.7 (3.5-5.1) mEq/L Chloride 103 (98-107) mEq/L Carbon Dioxide 29.6 (21-32) mEq/L Anion Gap 10.5 (5-15) MEQ/L BUN 11 (9-20) mg/dL Creatinine 0.92 (0.55-1.30) mg/dl Estimated GFR > 60 ML/MIN Glucose 178 H (70-110) MG/DL Calcium 9.0 (8.5-10.1) mg/dL Total Bilirubin 0.50 (0.2-1.0) mg/dL AST 68 H (15-37) U/L ALT 52 (12-78) U/L Alkaline Phosphatase 82 (46-116) U/L Troponin I (0.000-0.056) ng/ml Serum Total Protein 8.7 H (6.4-8.2) gm/dL Albumin 3.6 (3.4-5.0) g/dL - Progress Progress Note: 04/06/17 15:31 Pain better with NTG paste. Tests reassuring. Called Dr Stallworth and will place in obs for serial troponins. Discussed with .: Laz Will see patient in: hospital (observation) Counseled pt/family regarding: lab results, diagnosis, need for follow-up, rad results - Departure Time of Disposition: 15:35 Departure Disposition: Observation (Tele) Clinical Impression: Chest pain, rule out acute myocardial infarction Condition: Stable Critical Care Time: No Referrals: NIKOLAS STALLWORTH MD [Primary Care Provider] -
[2017-04-06] MEDS ORDERED: BABY ASPIRIN 81 MG CHEW ONE (14:44)
[2017-04-06] MEDS ORDERED: NITRO-BID 2% UD PACKETS ONE (14:44)
[2017-04-06] MEDS ORDERED: Sodium Chloride 0.9% 1000 ML 1,000 ML ONE (14:44)
[2017-04-06] MEDS ORDERED: ATARAX 25 MG ONE (14:44)
[2017-04-06] MEDS ORDERED: Sodium Chloride 0.9% 1000 ML 1,000 ML IV SCH (14:45)
[2017-04-06 14:51] LABS: BASOPHIL % 0.2 % (0.0-0.4); Eosinophil % 0.5 % (0.00-5.0); Granulocytes % 59.4 % (36.0-66.0); Lymphocytes % 33.7 % (24.0-44.0); Mean Cell Volume 88.8 fl (78-100); Mean Corpuscular Hemoglobin 28.6 pg (26-32); Mean Platelet Volume 11.4 fl (6-9.5); Monocytes % 6.2 % (0.0-12.0); Platelet Count 100 K/mm3 (150-450); Red Blood Count 4.01 M/mm3 (4.1-5.4); Red Cell Distribution Width 14.8 % (11.5-14.0); White Blood Count 5.8 K/mm3 (4.0-10.5)
[2017-04-06 15:05] LABS: ALBUMIN 3.6 g/dL (3.4-5.0); ALKALINE PHOSPHATASE 82 U/L (46-116); ANION GAP 10.5 MEQ/L (5-15); BLOOD UREA NITROGEN 11 mg/dL (9-20); CHLORIDE 103 mEq/L (98-107); Carbon Dioxide 29.6 mEq/L (21-32); Glucose 178 MG/DL (70-110); Potassium 3.7 mEq/L (3.5-5.1); SGOT/AST 68 U/L (15-37); SGPT/ALT 52 U/L (12-78); SODIUM 139 mEq/L (136-145); Total Protein 8.7 gm/dL (6.4-8.2)
[2017-04-06] MEDS ORDERED: TYLENOL 325 MG PO PRN (15:47)
[2017-04-06] MEDS ORDERED: MAALOX ES 30 ML UNIT DOSE PO PRN (15:47)
[2017-04-06] MEDS ORDERED: MILK OF MAGNESIA 30 ML PO PRN (15:47)
[2017-04-06] MEDS ORDERED: NovoLOG Insulin SQ PRN (15:47)
[2017-04-06] MEDS ORDERED: Sodium Chloride 0.9% 500 ML 500 ML IV SCH (15:47)
[2017-04-06] MEDS ORDERED: Senokot-S Tablet PO PRN (15:47)
[2017-04-06] MEDS ORDERED: Zofran 4 MG/2 ML VIAL IV PRN (15:47)
[2017-04-06] MEDS ORDERED: Norco 10/325 MG Tablet PO PRN (17:24)
--- NOTE | 2017-04-06 21:16 | XRAY ---
Indication: Chest pain. Comparison: November 12, 2016. Portable chest negative for focal infiltrate, consolidation, or large effusion. Heart is not enlarged. Vascularity normal. Bony thorax intact. Impression: Nonacute chest.
[2017-04-06] MEDS: NEURONTIN 300 MG PO SCH (21:57)
[2017-04-06] MEDS: Pepcid 20 MG PO SCH (21:57)
[2017-04-06] MEDS: Klonopin 0.5 MG PO SCH (21:57)
[2017-04-06] MEDS: NITRO-BID 2% UD PACKETS TOP SCH (21:57)
[2017-04-06] MEDS ORDERED: ZOCOR 20MG PO SCH (22:00)
[2017-04-06] MEDS ORDERED: Klonopin 0.5 MG PO SCH (22:00)
[2017-04-07] MEDS: NITRO-BID 2% UD PACKETS TOP SCH (05:53)
[2017-04-07 07:44] VITALS: O2SAT 90
[2017-04-07 07:48] VITALS: BP 125/75; PULSE 71
--- NOTE | 2017-04-07 08:04 | PCM.SSS ---
History of Present Illness - Chief Complaint Chief Complaint: Chest Pain r/o UT History of Present Illness: is a 56 year old female who presents to the emergency department with complaints of left sided chest pain that began yesterday morning at rest. She describes a tight left sided chest pain with radiation to the left neck and shoulder, she had associated nausea, no vomiting, no dyspnea or diaphoresis. She has been under a great deal of stress since the of her 3 months ago. - Review of Systems Constitutional: No Fever, No Chills Respiratory: No Cough, No Short Of Breath Cardiac: Chest Pain, No Palpitations, No Syncope Abdominal/Gastrointestinal: No Abdominal Pain, No Nausea, No Vomiting, No Diarrhea Genitourinary Symptoms: No Dysuria Skin: No Rash Neurological: No Dizziness, No Focal Weakness, No Sensory Changes All Other Systems: Reviewed and Negative Medications & Allergies Home Medications: Home Medication List Aspirin 81 mg PO DAILY 01/13/12 [History Confirmed 04/06/17] Hydrochlorothiazide 25 mg [hydroDIURIL 25 MG] 25 mg PO DAILY 01/13/12 [ History Confirmed 04/06/17] Hydrocodone/Acetaminophen [[place] 10-325 Tablet] 1 tab PO Q4-6HPRN PRN 01/13/12 [ History Confirmed 04/06/17] Metformin HCl 500 mg [Glucophage 500 MG] 1,000 mg PO BIDWMEALS 01/13/12 [ History Confirmed 04/06/17] Ramipril 2.5 mg PO DAILY 01/13/12 [History Confirmed 04/06/17] Clonazepam 1 mg PO BID 10/02/14 [History Confirmed 04/06/17] Simvastatin 40 mg [Zocor 40 mg] 40 mg PO QHS 08/28/15 [History Confirmed ] Gabapentin 600 mg PO TID 11/07/16 [History Confirmed 04/06/17] Venlafaxine HCl [Venlafaxine HCl ER] 150 mg PO DAILY 11/07/16 [History Confirmed 04/06/17] Nitroglycerin 0.4 mg Tablet [Nitrostat 0.4 MG Tablet] 0.4 mg SL UD #20 bottle 04/07/17 [Rx] Allergies/Adverse Reactions: Allergies Allergy/AdvReac Type Severity Reaction Status Date / Time No Known Drug Allergies Allergy Verified 04/06/17 14:22 - Past Medical History Past Medical History: Yes Neurological History: Other ENT History: No Pertinent History Cardiac History: High Cholesterol, Hypertension, Other Respiratory History: Sleep Apnea Endocrine Medical History: Diabetes Type II Musculoskelatal History: Degenerative Disk Disease, Other GI Medical History: No Pertinent History History: Other Pyscho-Social History: Anxiety, Depression Reproductive Disorders: No Pertinent History Comment: Chronic back pain. Neuropathy - Female History Are you now?: No - Past Surgical History Past Surgical History: Yes Neuro Surgical History: No Pertinent History Cardiac History: Cardiac Catheterization Respiratory Surgery: No Pertinent History GI Surgical History: Cholecystectomy Genitourinary Surgical Hx: No Pertinent History Musculskeletal Surgical Hx: Orthopedic Surgery Female Surgical History: Section, Hysterectomy Other Surgical History: cyst removed from ovaries. BUTCH - Social History Smoking Status: Current every day smoker How long have you smoked: 40 years Exposure to second hand smoke: Yes Alcohol: None Drug Use: none - Physical Exam Vital Signs: Vital Signs - 24 hr Temp Pulse Pulse Resp BP Pulse Ox 04/07/17 07:47 98.6 F 71 20 125/75 90 L 04/07/17 07:41 90 L 04/07/17 04:00 97.8 F 70 20 103/66 92 L 04/07/17 00:00 98.4 F 71 24 107/63 95 04/06/17 20:00 93 L 04/06/17 19:59 98.3 F 83 18 119/71 93 L 04/06/17 16:03 98.1 F 86 18 127/71 97 04/06/17 15:35 95 04/06/17 15:16 86 18 116/73 95 04/06/17 14:42 96 04/06/17 14:18 98.9 F 86 80 20 125/82 95 Oxygen-Last 24 hours O2 Percentage 2 Liters = 28% General Appearance: no apparent distress, alert Neurologic Exam: alert, oriented x 3, cooperative, normal mood/affect, nml cerebellar function, nml station & gait, sensation nml, No motor deficits Eye Exam: PERRL/EOMI, eyes nml inspection Respiratory Exam: normal breath sounds, lungs clear, No respiratory distress Cardiovascular Exam: regular rate/rhythm, normal heart sounds, normal peripheral pulses Gastrointestinal/Abdomen Exam: soft, normal bowel sounds, No tenderness, No mass Extremity Exam: normal inspection, normal range of motion, pelvis stable Skin Exam: normal color, warm, dry, No rash Results - Labs Lab/Micro Results: Accuchecks Date 04/07/17 Date 04/06/17 Date 04/06/17 Time 07:30 Time 21:00 Time 16:30 Accucheck Value: 154 Accucheck Value: 222 Accucheck Value: 111 Lab Results-Last 24 Hours 04/06/17 04/06/17 04/06/17 Range/Units 17:50 20:42 23:45 Troponin I < 0.017 < 0.017 < 0.017 (0.000-0.056) ng/ml Triglycerides (30-200) mg/dL Cholesterol (100-200) mg/dL LDL Cholesterol (5-99) mg/dL HDL Cholesterol (35-60) mg/dL Heart Disease Risk Ratio 04/07/17 04/07/17 Range/Units 02:45 04:00 Troponin I < 0.017 (0.000-0.056) ng/ml Triglycerides 73 (30-200) mg/dL Cholesterol 105 (100-200) mg/dL LDL Cholesterol 58 (5-99) mg/dL HDL Cholesterol 29 L (35-60) mg/dL Heart Disease Risk Ratio 3.6 Accuchecks Date 04/07/17 Date 04/06/17 Date 04/06/17 Time 07:30 Time 21:00 Time 16:30 Accucheck Value: 154 Accucheck Value: 222 Accucheck Value: 111 - Other Procedures and Tests Respiratory Therapy 04/08/17 05:00 EKG ONCE 04/09/17 05:00 EKG ONCE Assessment/Plan (1) Chest pain Current Visit: No Status: Acute Qualifiers: Chest pain type: unspecified Qualified Code(s): R07.9 - Chest pain, unspecified Assessment & Plan: UT ruled out, may well be anxiety related but has multiple risk factors including tobacco use, type 2 diabetes etc. will f/u with Dr Bernstein as she saw him 2-3 years ago for stress test. Code(s): R07.9 - CHEST PAIN, UNSPECIFIED (2) Diabetes Current Visit: No Status: Acute Assessment & Plan: check a1c, last was 6.8 11/2016 Code(s): E11.9 - TYPE 2 DIABETES MELLITUS WITHOUT COMPLICATIONS (3) Anxiety Current Visit: No Status: Acute Code(s): F41.9 - ANXIETY DISORDER, UNSPECIFIED Hospital Summary - Vitals & Intake/Output Vital Signs: Vital Signs Temperature 98.6 F 04/07/17 07:47 Pulse Rate 71 04/07/17 07:47 Respiratory Rate 20 04/07/17 07:47 Blood Pressure 125/75 04/07/17 07:47 O2 Sat by Pulse Oximetry 90 L 04/07/17 07:47 Oxygen-Last Documented O2 Percentage 2 Liters = 28% Intake & Output: Intake & Output 04/04/17 04/05/17 04/06/17 04/07/17 11:59 11:59 11:59 11:59 Intake Total 1587 Balance 1587 Weight 84.595 kg - Lab Result Diagrams: 04/06/17 14:31 04/06/17 14:30 Lab Results-Last 24 Hrs: Accuchecks Date 04/07/1704/06/1704/06/17 Time 07:30 Time 21:00 Time 16:30 Accucheck Value: 154 Accucheck Value: 222 Accucheck Value: 111 Lab Results-Last 24 Hours 04/06/17 04/06/17 04/06/17 Range/Units 17:50 20:42 23:45 Troponin I < 0.017 < 0.017 < 0.017 (0.000-0.056) ng/ml Triglycerides (30-200) mg/dL Cholesterol (100-200) mg/dL LDL Cholesterol (5-99) mg/dL HDL Cholesterol (35-60) mg/dL Heart Disease Risk Ratio 04/07/17 04/07/17 Range/Units 02:45 04:00 Troponin I < 0.017 (0.000-0.056) ng/ml Triglycerides 73 (30-200) mg/dL Cholesterol 105 (100-200) mg/dL LDL Cholesterol 58 (5-99) mg/dL HDL Cholesterol 29 L (35-60) mg/dL Heart Disease Risk Ratio 3.6 Micro Results-Entire Visit: Accuchecks Date 04/07/17 Date 04/06/1704/06/17 Time 07:30 Time 21:00 Time 16:30 Accucheck Value: 154 Accucheck Value: 222 Accucheck Value: 111 - Procedures and Test Procedures and Tests throughout Hospitalization: Therapy Orders & Screens 04/06/17 16:33 Smoking Cessation Education Comment: Diagnosis: Chest Pain r/o UT Smoking Status: Current every day smoker How long have you smoked: 40 years Have you smoked in the past 12 months: Yes Approximately how many cigarettes per day: 30 Do you dip or chew tobacco: No 04/06/17 22:00 EKG ONCE Comment: 04/07/17 05:00 EKG ONCE Comment: 04/08/17 05:00 EKG ONCE Comment: 04/09/17 05:00 EKG ONCE Comment: - Discharge Disposition: Home, Self-Care Condition: Stable Prescriptions: New Nitroglycerin 0.4 mg Tablet [Nitrostat 0.4 MG Tablet] 0.4 mg SL UD #20 bottle Continue Metformin HCl 500 mg [Glucophage 500 MG] 1,000 mg PO BIDWMEALS Hydrocodone/Acetaminophen [[place] 10-325 Tablet] 1 tab PO Q4-6HPRN PRN PRN Reason: Pain Aspirin 81 mg PO DAILY Ramipril 2.5 mg PO DAILY Hydrochlorothiazide 25 mg [hydroDIURIL 25 MG] 25 mg PO DAILY Clonazepam 1 mg PO BID Simvastatin 40 mg [Zocor 40 mg] 40 mg PO QHS Gabapentin 600 mg PO TID Venlafaxine HCl [Venlafaxine HCl ER] 150 mg PO DAILY Additional Instructions: see Dr Bernstein as schedule, resume home meds and f/u with Dr Stallworth in office in 1 week. Follow up with: NIKOLAS STALLWORTH MD [Primary Care Provider] - GEORGE BERNSTEIN [ACTIVE STAFF] - 1 Week
[2017-04-07] MEDS: NEURONTIN 300 MG PO SCH (09:00)
[2017-04-07] MEDS: Klonopin 0.5 MG PO SCH (09:01)
[2017-04-07] MEDS: Pepcid 20 MG PO SCH (09:02)
[2017-04-07] MEDS ORDERED: RAMIPRIL 2.5 MG PO SCH (10:00)
[2017-04-07] MEDS ORDERED: Effexor XR 75 MG PO SCH (10:00)
[2017-04-07] MEDS ORDERED: ECOTRIN 81 MG PO SCH (10:00)
[2017-04-07] MEDS ORDERED: BABY ASPIRIN 81 MG CHEW PO SCH (10:00)
[2017-04-07] MEDS ORDERED: Ecotrin 325 MG PO SCH (10:00)
[2017-04-07] MEDS ORDERED: Altace 1.25 MG PO SCH (10:00)
[2017-04-07] MEDS ORDERED: NON-FORMULARY ITEM (Venlafaxine Hcl [Venlafaxine Hcl Er] 150 MG) PO SCH (10:00)
[2017-04-07] MEDS ORDERED: hydroDIURIL 25 MG PO SCH (10:00)
== END 2017-04-07 09:20 | disposition home or self-care (01) ==
LOC: ED 14:10 → MED SURG 15:46
PROVIDERS: ADMIT Family Medicine; ATTEND Family Medicine
DX: R07.9 Chest pain, unspecified (principal); E11.9 Type 2 diabetes mellitus without complications; F41.9 Anxiety disorder, unspecified; I10 Essential (primary) hypertension; G62.9 Polyneuropathy, unspecified
CPT/HCPCS: 36000; 36415; 71010; 80053; 80061; 82962; 83036; 83721; 84484; 85025; 85379; 93005; 93041; 93268; 96360; 96361; 96374; 99285; G0378; A9270-GY

== ENCOUNTER 2018-03-05 14:32 | Emergency (ER) | payer MEDICARE ==
[2018-03-05] MEDS ORDERED: Sodium Chloride 0.9% 1000 ML 1,000 ML IV SCH (15:15)
[2018-03-05] MEDS ORDERED: Sodium Chloride 0.9% 1000 ML 1,000 ML ONE (15:23)
[2018-03-05 15:31] LABS: Hemoglobin 11.5 gm/dl (12.0-16.0); Mean Corpuscular Hemoglobin 27.8 pg (26-32); Red Blood Count 4.13 M/mm3 (4.1-5.4); White Blood Count 7.6 K/mm3 (4.0-10.5)
[2018-03-05 15:32] LABS: BASOPHIL % 0.1 % (0.0-0.4); Basophil (Absolute #) 0.01 (0-0.4); Eosinophil % 0.4 % (0.00-5.0); Eosinophil (Absolute #) 0.03 (0-0.5); Granulocyte Absolute (ANC) 4.75 (1.4-6.9); Granulocytes % 62.9 % (36.0-66.0); Hematocrit 35.4 % (35-47); Lymphocyte (Absolute #) 2.29 (1.0-4.6); Lymphocytes % 30.3 % (24.0-44.0); Mean Cell Volume 85.7 fl (78-100); Mean Corpuscular Hgb Concent. 32.5 g/dl (32-36); Mean Platelet Volume 11.5 fl (6-9.5); Monocyte (Absolute #) 0.48 (0.0-1.3); Monocytes % 6.3 % (0.0-12.0); Platelet Count 98 K/mm3 (150-450); Red Cell Distribution Width 15.3 % (11.5-14.0)
[2018-03-05 15:37] LABS: Appearance HAZY (CLEAR); Bilirubin NEGATIVE (NEGATIVE); Blood TRACE NON-HEM Ery/ul (0-5); Glucose NEGATIVE (NEGATIVE); Ketones NEGATIVE (NEGATIVE); Leukocyte Esterase SMALL (NEGATIVE); Nitrite NEGATIVE (NEGATIVE); Protein,Urine Dip TRACE (Negative); Urobilinogen 4 mg/dL (0-1)
[2018-03-05 15:38] LABS: Bacteria MODERATE /HPF (NEGATIVE); Epithelial Cells MODERATE /HPF (FEW); WBC 0-2 /HPF (0-5)
[2018-03-05 15:58] LABS: ALBUMIN 4.5 g/dL (3.5-5.0); ALKALINE PHOSPHATASE 106 U/L (38-126); ANION GAP 16.2 MEQ/L (5-15); BLOOD UREA NITROGEN 8 mg/dL (7-17); CHLORIDE 102 mmol/L (98-107); Calcium 9.3 mg/dL (8.4-10.2); Carbon Dioxide 26 mmol/L (22-30); Creatinine 1 0.56 mg/dL (0.52-1.04); Glucose 127 mg/dL (74-106); Potassium 3.4 mmol/L (3.5-5.1); SGOT/AST 59 U/L (14-36); SGPT/ALT 41 U/L (0-35); SODIUM 141 mmol/L (137-145); Total Protein 9.2 g/dL (6.3-8.2)
--- NOTE | 2018-03-05 16:00 | ERPHSYRPT ---
- History of Present Illness Time Seen by Provider: 03/05/18 15:55 Source: patient Exam Limitations: no limitations Patient Subjective Stated Complaint: pt reports feeling tired and weak for the last month. states she has anxiety and cannot get comfortable to rest. pt states "i just feel off today" Triage Nursing Assessment: pt is aox3, pupils perrl, pt afebrile, radial pulses are strong and equal, heart sounds are strong and regular, pt skin pink warm dry. cap refill < 3 seconds. abd is soft and non tender, bowel sounds are present and normoactive x4. pt ambulates to exam room with no difficulty. Physician History: 57-year-old white female arrives with complaint of feeling tired and weak for a month She has not had any fevers no shortness of breath no abdominal pain she has not been otherwise ill she does state that she's been somewhat anxious and having problems sleeping. Past medical history includes diabetes type 2, sleep apnea, hyperlipidemia, high blood pressure, degenerative disc disease, anxiety, depression, chronic back pain Past surgical history includes cardiac catheter, , hysterectomy, orthopedic surgery, BUTCH, cyst removed from ovary Timing/Duration: other (symptoms for a month) Severity: moderate Modifying Factors: Improves With: nothing Associated Symptoms: weakness (feels tired and weak for a month), No nausea, No vomiting, No abdominal pain, No shortness of breath, No heartburn, No diaphoresis, No cough, No chills, No chest pain, No fever, No headaches, No loss of appetite, No malaise, No rash, No syncope, No seizure Allergies/Adverse Reactions: No Known Drug Allergies Allergy (Verified 03/05/18 14:53) Home Medications: Aspirin 81 mg PO DAILY 01/13/12 [History] Hydrochlorothiazide 25 mg [hydroDIURIL 25 MG] 25 mg PO DAILY 01/13/12 [ History] Hydrocodone/Acetaminophen [Skandia 10-325 Tablet] 1 tab PO Q4-6HPRN PRN 01/13/12 [ History] Gabapentin 600 mg PO TID 11/07/16 [History] Metformin HCl [Glucophage] 1,000 mg PO BID 08/13/17 [History] Venlafaxine HCl [Venlafaxine HCl ER] 225 mg PO DAILY 08/13/17 [History] Hx Tetanus, Diphtheria Vaccination/Date Given: Yes Hx Influenza Vaccination/Date Given: Yes Hx Pneumococcal Vaccination/Date Given: Yes Immunizations Up to Date: Yes - Review of Systems Constitutional: Weakness (Feels tired and weak for a month), No Fever, No Chills Eyes: No Symptoms Ears, Nose, & Throat: No Symptoms Respiratory: No Cough, No Dyspnea Cardiac: No Chest Pain, No Edema, No Syncope Abdominal/Gastrointestinal: No Abdominal Pain, No Nausea, No Vomiting, No Diarrhea Genitourinary Symptoms: No Dysuria Musculoskeletal: No Back Pain, No Neck Pain Skin: No Rash Neurological: No Dizziness, No Focal Weakness, No Sensory Changes Psychological: No Symptoms Endocrine: No Symptoms All Other Systems: Reviewed and Negative - Past Medical History Pertinent Past Medical History: Yes Neurological History: Other ENT History: No Pertinent History Cardiac History: High Cholesterol, Hypertension, Other Respiratory History: Sleep Apnea Endocrine Medical History: Diabetes Type II Musculoskeletal History: Degenerative Disk Disease, Other GI Medical History: No Pertinent History History: Other Psycho-Social History: Anxiety, Depression Female Reproductive Disorders: No Pertinent History Other Medical History: Chronic back pain. Neuropathy - Past Surgical History Past Surgical History: Yes Neuro Surgical History: No Pertinent History Cardiac: Cardiac Catheterization Respiratory: No Pertinent History Gastrointestinal: Cholecystectomy Genitourinary: No Pertinent History Musculoskeletal: Orthopedic Surgery Female Surgical History: Section, Hysterectomy Other Surgical History: cyst removed from ovaries. BUTCH - Social History Smoking Status: Current every day smoker How long have you smoked: 40 years Exposure to second hand smoke: Yes Drug Use: none Patient Lives Alone: Yes - Female History Hx Now: No - Nursing Vital Signs Nursing Vital Signs: Initial Vital Signs Temperature 98.4 F 03/05/18 14:42 Pulse Rate 110 H 03/05/18 14:42 Respiratory Rate 20 03/05/18 14:42 Blood Pressure 159/104 03/05/18 14:42 O2 Sat by Pulse Oximetry 97 03/05/18 14:42 Pain Scale Pain Intensity 0 - Physical Exam General Appearance: no apparent distress, alert Eye Exam: PERRL/EOMI, eyes nml inspection Ears, Nose, Throat Exam: normal ENT inspection, TMs normal, pharynx normal, moist mucous membranes Neck Exam: normal inspection, non-tender, supple, full range of motion Respiratory Exam: normal breath sounds Cardiovascular Exam: regular rate/rhythm, normal heart sounds, normal peripheral pulses Gastrointestinal/Abdomen Exam: soft, normal bowel sounds, No tenderness, No mass Back Exam: normal inspection, normal range of motion, No CVA tenderness, No vertebral tenderness Extremity Exam: normal inspection, normal range of motion, pelvis stable Neurologic Exam: alert, oriented x 3, cooperative, 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 as tested, normal mood/affect, nml cerebellar function, nml station & gait, sensation nml, No motor deficits Skin Exam: normal color, warm, dry, No rash SpO2 Interpretation: normal (97%) SpO2: 97 Oxygen Delivery: Room Air - Course Nursing assessment & vital signs reviewed: Yes EKG Interpreted by Me: RATE (87 bpm), Sinus Rhythm, NORMAL AXIS, Other (EKG: Sinus rhythm, 87 bpm, normal axis, no acute ST or T wave changes noted) Ordered Tests: Active Orders 24 hr Category Date Time Status EKG-ER Only STAT Care 03/05/18 15:12 Active IV Insertion STAT Care 03/05/18 15:11 Active CBC W DIFF Stat Lab 03/05/18 14:50 Completed CMP Stat Lab 03/05/18 14:50 Completed CULTURE,URINE Stat Lab 03/05/18 15:14 Received TROPONIN Q3H Lab 03/05/18 14:50 Completed TROPONIN Q3H Lab 03/05/18 18:15 Ordered TROPONIN Q3H Lab 03/05/18 21:15 Ordered TROPONIN Q3H Lab 03/06/18 00:15 Ordered TROPONIN Q3H Lab 03/06/18 03:15 Ordered TSH [TSH, 3RD Generation] Stat Lab 03/05/18 Completed UA W/ MICROSCOPIC Stat Lab 03/05/18 15:14 Completed Medication Summary Generic Name Dose Route Start Last Admin Trade Name Freq PRN Reason Stop Dose Admin Sodium Chloride 1,000 mls @ 100 mls/hr 03/05/18 15:15 03/05/18 15:27 Sodium Chloride 0.9% 1000 Ml IV 04/04/18 15:14 100 mls/hr .Q10H MYA Administration Discontinued Medications Generic Name Dose Route Start Last Admin Trade Name Freq PRN Reason Stop Dose Admin Potassium Chloride 20 meq 03/05/18 16:22 03/05/18 16:47 Klor Con 10 Meq PO 03/05/18 16:23 20 meq STAT ONE Administration Potassium Chloride Confirm 03/05/18 16:44 Klor Con 10 Meq Administered 03/05/18 16:45 Dose 20 meq PO [facility] Lab/Rad Data: Laboratory Result Diagrams 03/05/18 14:50 03/05/18 14:50 Laboratory Results 03/05/18 03/05/18 03/05/18 Range/Units Unknown Unknown 15:14 WBC (4.0-10.5) K/mm3 RBC (4.1-5.4) M/mm3 Hgb (12.0-16.0) gm/dl Hct (35-47) % MCV (78-100) fl MCH (26-32) pg MCHC (32-36) g/dl RDW (11.5-14.0) % Plt Count (150-450) K/mm3 MPV (6-9.5) fl Gran % (36.0-66.0) % Eos # (Auto) (0-0.5) Absolute Lymphs (auto) (1.0-4.6) Absolute Monos (auto) (0.0-1.3) Lymphocytes % (24.0-44.0) % Monocytes % (0.0-12.0) % Eosinophils % (0.00-5.0) % Basophils % (0.0-0.4) % Absolute Granulocytes (1.4-6.9) Basophils # (0-0.4) Sodium (137-145) mmol/L Potassium (3.5-5.1) mmol/L Chloride (98-107) mmol/L Carbon Dioxide (22-30) mmol/L Anion Gap (5-15) MEQ/L BUN (7-17) mg/dL Creatinine (0.52-1.04) mg/dL Estimated GFR ML/MIN Glucose (74-106) mg/dL Calcium (8.4-10.2) mg/dL Total Bilirubin (0.2-1.3) mg/dL AST (14-36) U/L ALT (0-35) U/L Alkaline Phosphatase (38-126) U/L Troponin I (0.000-0.034) ng/mL Serum Total Protein (6.3-8.2) g/dL Albumin (3.5-5.0) g/dL Free T4 1.14 (0.76-1.46) ng/dL TSH 3rd Generation 1.520 (0.47-4.68) mIU/L Ur Collection Type CLEAN CATCH Urine Color YELLOW (YELLOW) Urine Appearance HAZY (CLEAR) Urine pH 6.0 (5-6) Ur Specific [place] 1.010 (1.005-1.025) Urine Protein TRACE (Negative) Urine Ketones NEGATIVE (NEGATIVE) Urine Blood TRACE NON-HEM (0-5) Eloy/ul Urine Nitrite NEGATIVE (NEGATIVE) Urine Bilirubin NEGATIVE (NEGATIVE) Urine Urobilinogen 4 (0-1) mg/dL Ur Leukocyte Esterase SMALL (NEGATIVE) Urine Microscopic RBC 2-5 (0-2) /HPF Urine Microscopic WBC 0-2 (0-5) /HPF Ur Epithelial Cells MODERATE (FEW) /HPF Urine Bacteria MODERATE (NEGATIVE) /HPF Urine Culture Reflexed YES (NO) Urine Glucose NEGATIVE (NEGATIVE) mg/dL Slides for Path Review Specimen Received 03/05/18 1520 03/05/18 03/05/18 03/05/18 Range/Units 14:50 14:50 14:50 WBC 7.6 (4.0-10.5) K/mm3 RBC 4.13 (4.1-5.4) M/mm3 Hgb 11.5 L (12.0-16.0) gm/dl Hct 35.4 (35-47) % MCV 85.7 (78-100) fl MCH 27.8 (26-32) pg MCHC 32.5 (32-36) g/dl RDW 15.3 H (11.5-14.0) % Plt Count 98 L (150-450) K/mm3 MPV 11.5 H (6-9.5) fl Gran % 62.9 (36.0-66.0) % Eos # (Auto) 0.03 (0-0.5) Absolute Lymphs (auto) 2.29 (1.0-4.6) Absolute Monos (auto) 0.48 (0.0-1.3) Lymphocytes % 30.3 (24.0-44.0) % Monocytes % 6.3 (0.0-12.0) % Eosinophils % 0.4 (0.00-5.0) % Basophils % 0.1 (0.0-0.4) % Absolute Granulocytes 4.75 (1.4-6.9) Basophils # 0.01 (0-0.4) Sodium 141 (137-145) mmol/L Potassium 3.4 L (3.5-5.1) mmol/L Chloride 102 (98-107) mmol/L Carbon Dioxide 26 (22-30) mmol/L Anion Gap 16.2 H (5-15) MEQ/L BUN 8 (7-17) mg/dL Creatinine 0.56 (0.52-1.04) mg/dL Estimated GFR > 60.0 ML/MIN Glucose 127 H (74-106) mg/dL Calcium 9.3 (8.4-10.2) mg/dL Total Bilirubin 0.80 (0.2-1.3) mg/dL AST 59 H (14-36) U/L ALT 41 H (0-35) U/L Alkaline Phosphatase 106 (38-126) U/L Troponin I < 0.012 (0.000-0.034) ng/mL Serum Total Protein 9.2 H (6.3-8.2) g/dL Albumin 4.5 (3.5-5.0) g/dL Free T4 (0.76-1.46) ng/dL TSH 3rd Generation (0.47-4.68) mIU/L Ur Collection Type Urine Color (YELLOW) Urine Appearance (CLEAR) Urine pH (5-6) Ur Specific [place] (1.005-1.025) Urine Protein (Negative) Urine Ketones (NEGATIVE) Urine Blood (0-5) Eloy/ul Urine Nitrite (NEGATIVE) Urine Bilirubin (NEGATIVE) Urine Urobilinogen (0-1) mg/dL Ur Leukocyte Esterase (NEGATIVE) Urine Microscopic RBC (0-2) /HPF Urine Microscopic WBC (0-5) /HPF Ur Epithelial Cells (FEW) /HPF Urine Bacteria (NEGATIVE) /HPF Urine Culture Reflexed (NO) Urine Glucose (NEGATIVE) mg/dL Slides for Path Review Specimen Received - Progress Progress: improved Progress Note: 03/05/18 17:34 This is a 57-year-old white female with history of diabetes, sleep apnea, hyperlipidemia, high blood pressure, degenerative disc disease, anxiety, depression, chronic back pain She arrives with complaints of feeling tired and weak symptoms for one month she is not short of breath she does state that she doesn't sleep very well at night. Patient was essentially normal physical examination on neurologic exam lungs are clear heart is regular abdomen soft nontender nondistended positive bowel sounds extremities full range of motion pulses equal and symmetrical 2 over 4 neuro patient alert oriented 3 cranial nerves II through XII are intact. Patient's vitals are stable EKG normal sinus rhythm 87 bpm normal axis no acute ST or T wave changes essentially normal EKG patient white cell is normal at 7.6 hemoglobin 11.5 hematocrit 35.4 platelets are 98 which is low free T4 is 1.14 TSH within normal limits, chemistry is essentially normal with the exception of mildly elevated liver enzymes with AST of 59 and SGPT of 41 troponin is within normal limits Patient appears to be stable she has been given IV normal saline him him Will have patient return home and follow-up with her family doctor. She did state that she was having problems sleeping however she is on Skandia at home and I really don't want to place her on any sleepers - Departure Time of Disposition: 17:37 Departure Disposition: Home Clinical Impression: Fatigue Qualifiers: Fatigue type: unspecified Qualified Code(s): R53.83 - Other fatigue Condition: Fair Critical Care Time: No Referrals: NIKOLAS STALLWORTH MD [Primary Care Provider] - Additional Instructions: Return home Plenty of fluids Medications as prescribed by your family doctor Follow-up with your family doctor. Return for acute distress or for severe symptoms.
[2018-03-05] MEDS ORDERED: Klor Con 10 MEQ PO ONE ×2 (16:22→16:44)
[2018-03-05 18:18] VITALS: BP 146/76; PULSE 70; O2SAT 98
== END 2018-03-05 18:17 | disposition home or self-care (01) ==
LOC: ED 14:32
DX: E11.9 Type 2 diabetes mellitus without complications (principal); R53.83 Other fatigue; Z79.4 Long term (current) use of insulin; G47.30 Sleep apnea, unspecified; E78.5 Hyperlipidemia, unspecified; I10 Essential (primary) hypertension; F41.8 Other specified anxiety disorders; G89.29 Other chronic pain; G62.9 Polyneuropathy, unspecified; E78.00 Pure hypercholesterolemia, unspecified
CPT/HCPCS: 36000; 36415; 80053; 81000; 84439; 84443; 84484; 85025; 87086; 93005; 96360; 96361; 99284; A9270-GY

== ENCOUNTER 2019-01-26 07:54 | Day surgery (SDC) | payer MEDICARE ==
[2019-01-26] MEDS ORDERED: Xylocaine-Mpf 2% 5 Ml Vial IJ ONE (07:55)
[2019-01-26] MEDS ORDERED: Depo-Medrol 40 MG/ML IM ONE (07:55)
[2019-01-26] MEDS ORDERED: DIPRIVAN 200 MG/20 ML IV ONE (09:23)
[2019-01-26] MEDS ORDERED: Ketamine HCl 50 MG/ML ONE (09:24)
--- NOTE | 2019-01-26 10:41 | XRAY ---
Indication: Bilateral L4-S1 MBB. Intraoperative fluoroscopy was provided for 7 seconds. Single digital spot image submitted for interpretation demonstrates posterior needle tips projecting over the expected course of the left and right L4-S1 nerve roots. Correlate with intraoperative findings/report.
--- NOTE | 2019-01-26 10:51 | XRAY ---
7 seconds fluoroscopy time in surgery for bilateral L4-S1 MBB.
[2019-01-26] MEDS ORDERED: Lactated Ringers 1,000 ML IV ONE (13:26)
== END 2019-01-26 09:51 | disposition home or self-care (01) ==
LOC: SDC-PAIN 07:54
PROVIDERS: ATTEND Psychiatry & Neurology Pain Medicine
DX: M47.816 Spondylosis without myelopathy or radiculopathy, lumbar region (principal); E11.9 Type 2 diabetes mellitus without complications; G47.30 Sleep apnea, unspecified; F41.8 Other specified anxiety disorders
CPT/HCPCS: 64493; 64494; 72020; 77002; 82962; J1030; J2704

== ENCOUNTER 2019-03-02 08:22 | Day surgery (SDC) | payer MEDICARE ==
[2019-03-02] MEDS ORDERED: Marcaine 0.5% SDV 10 ML IJ ONE (08:23)
[2019-03-02] MEDS ORDERED: Depo-Medrol 40 MG/ML IM ONE (08:23)
[2019-03-02] MEDS ORDERED: Ketamine HCl 50 MG/ML ONE (10:01)
[2019-03-02] MEDS ORDERED: DIPRIVAN 200 MG/20 ML IV ONE (10:01)
[2019-03-02] MEDS ORDERED: Lactated Ringers 1,000 ML IV ONE (11:15)
--- NOTE | 2019-03-02 15:31 | XRAY ---
9 seconds fluoroscopy time in surgery for bilateral L4-S1 MBB.
--- NOTE | 2019-03-04 10:19 | XRAY ---
Indication: Bilateral L4-S1 MBB. Intraoperative fluoroscopy was provided for 9 seconds. Single digital spot image submitted for interpretation demonstrates posterior needle tips projecting over the expected course of the left and right L4-S1 nerve roots. Correlate with intraoperative findings/report.
== END 2019-03-02 10:30 | disposition home or self-care (01) ==
LOC: SDC-PAIN 08:22
PROVIDERS: ATTEND Psychiatry & Neurology Pain Medicine
DX: M47.816 Spondylosis without myelopathy or radiculopathy, lumbar region (principal); E11.9 Type 2 diabetes mellitus without complications; F41.8 Other specified anxiety disorders; G47.30 Sleep apnea, unspecified; N80.9 Endometriosis, unspecified; Z79.899 Other long term (current) drug therapy
CPT/HCPCS: 64493; 64494; 72020; 77002; 82962; J1030; J2704

== ENCOUNTER 2019-04-20 08:41 | Day surgery (SDC) | payer MEDICARE ==
[2019-04-20] MEDS ORDERED: Marcaine 0.5% SDV 10 ML IJ ONE (08:42)
[2019-04-20] MEDS ORDERED: Xylocaine 1% Vial 30 ML PF IJ ONE (08:42)
[2019-04-20] MEDS ORDERED: Depo-Medrol 40 MG/ML IM ONE (08:42)
[2019-04-20] MEDS ORDERED: Ketamine HCl 50 MG/ML ONE (10:21)
[2019-04-20] MEDS ORDERED: DIPRIVAN 200 MG/20 ML IV ONE (10:21)
--- NOTE | 2019-04-20 12:13 | XRAY ---
Indication: Right L4-S1 BUTCH. Intraoperative fluoroscopy was provided for 17 seconds. 3 digital spot images submitted for interpretation demonstrates posterior needle tips projecting over the expected course of the right L4-S1 nerve roots. Correlate with intraoperative findings/report.
--- NOTE | 2019-04-20 12:39 | XRAY ---
17 seconds of fluoroscopy was used in surgery for a right L4-L5, L5-S1 RFA.
[2019-04-20] MEDS ORDERED: Lactated Ringers 1,000 ML IV ONE (13:59)
== END 2019-04-20 11:00 | disposition home or self-care (01) ==
LOC: SDC-PAIN 08:41
PROVIDERS: ATTEND Psychiatry & Neurology Pain Medicine
DX: M47.816 Spondylosis without myelopathy or radiculopathy, lumbar region (principal); E11.9 Type 2 diabetes mellitus without complications; F41.8 Other specified anxiety disorders; G47.30 Sleep apnea, unspecified; Z79.899 Other long term (current) drug therapy
CPT/HCPCS: 64635; 64636; 72100; 77002; 82962; J1030; J2001; J2704

== ENCOUNTER 2019-09-14 07:38 | Day surgery (SDC) | payer MEDICARE ==
[2019-09-14] MEDS ORDERED: Depo-Medrol 40 MG/ML IM ONE (07:39)
[2019-09-14] MEDS ORDERED: Marcaine 0.5% SDV 10 ML IJ ONE (07:39)
[2019-09-14] MEDS ORDERED: Xylocaine 1% Vial 30 ML PF IJ ONE (07:39)
--- NOTE | 2019-09-14 10:20 | XRAY ---
24 seconds fluoroscopy time in surgery for left L4-S1 RFA.
--- NOTE | 2019-09-14 14:09 | XRAY ---
Indication: Left L4-S1 RFA. Intraoperative fluoroscopy was provided for 24 seconds. 3 digital spot images submitted for interpretation demonstrates posterior needle tips projecting over the expected course of the left L4-S1 nerve roots. Correlate with intraoperative findings/report.
[2019-09-14] MEDS ORDERED: Lactated Ringers 1,000 ML IV ONE (14:50)
== END 2019-09-14 09:05 | disposition home or self-care (01) ==
LOC: SDC-PAIN 07:38
PROVIDERS: ATTEND Psychiatry & Neurology Pain Medicine
DX: M47.816 Spondylosis without myelopathy or radiculopathy, lumbar region (principal); M47.817 Spondylosis without myelopathy or radiculopathy, lumbosacral region; E11.9 Type 2 diabetes mellitus without complications; F41.8 Other specified anxiety disorders; G47.30 Sleep apnea, unspecified
CPT/HCPCS: 64635; 64636; 72100; 77002; 82962; J1030; J2001

== ENCOUNTER 2020-05-10 12:25 | Emergency (ER) | payer MEDICARE ==
[2020-05-10 12:38] VITALS: BP 136/84; PULSE 94; O2SAT 98
--- NOTE | 2020-05-10 12:46 | ERPHSYRPT ---
- History of Present Illness Time Seen by Provider: 05/10/20 12:35 Source: patient Exam Limitations: no limitations Patient Subjective Stated Complaint: Pt had a glass door fall on top of her right foot, foot is swollen and red Triage Nursing Assessment: Pt drove self to the ER, right foot swollen and red on the top, vitals wnl, pulses normal, rates overall pain as 6/10, unable to place all of her weight on it, denies any other issues at this time Physician History: Patient is a 59-year-old female presents to our ED for a foot x-ray. Patient states she was at her home when a glass door fell on top of her right foot. Patient states her right foot has been painful since. Pain described as an ache that is primarily at the dorsum of her foot. Pain worse with ambulation and weightbearing. Pain improves with rest. No other injuries reported. Symptoms are mild to moderate in intensity. No associated injuries. Patient voices no other complaints or concerns at this time. Method of Injury: other (Door fell onto the dorsum of right patient's foot.) Occurred: yesterday Quality: constant Severity of Pain-Max: moderate Severity of Pain-Current: mild Lower Extremities Pain: foot: right Modifying Factors: Improves With: movement, rest Associated Symptoms: none Allergies/Adverse Reactions: No Known Drug Allergies Allergy (Verified 05/10/20 12:38) Home Medications: Aspirin 81 mg PO DAILY 01/13/12 [History] Hydrochlorothiazide 25 mg [hydroDIURIL 25 MG] 25 mg PO DAILY 01/13/12 [History] Gabapentin 800 mg PO TID 11/07/16 [History] Metformin HCl [Glucophage] 1,000 mg PO BID 08/13/17 [History] Venlafaxine HCl [Venlafaxine HCl ER] 225 mg PO DAILY 08/13/17 [History] Dapagliflozin Propanediol [Farxiga] 10 mg PO DAILY 05/10/20 [History] Dulaglutide [Trulicity] 1.5 mg SQ WEEKLY 05/10/20 [History] Glipizide [Glipizide ER] 5 mg PO BID 05/10/20 [History] Quetiapine Fumarate 25 mg PO HS 05/10/20 [History] Ramipril [Altace] 10 mg PO DAILY 05/10/20 [History] Simvastatin 40 mg PO HS 05/10/20 [History] Hx Tetanus, Diphtheria Vaccination/Date Given: Yes Hx Influenza Vaccination/Date Given: Yes Hx Pneumococcal Vaccination/Date Given: Yes Travel Risk - International Travel Have you traveled outside of the country in past 3 weeks: No - Coronavirus Screening Are you exhibiting any of the following symptoms?: No Close contact with a COVID-19 positive Pt in past 14-21 Days: No - Review of Systems Constitutional: No Symptoms, No Fever, No Chills Eyes: No Symptoms Ears, Nose, & Throat: No Symptoms Respiratory: No Symptoms, No Cough, No Dyspnea Cardiac: No Symptoms, No Chest Pain, No Edema, No Syncope Abdominal/Gastrointestinal: No Symptoms, No Abdominal Pain, No Nausea, No Vomiting, No Diarrhea Genitourinary Symptoms: No Symptoms, No Dysuria Musculoskeletal: No Symptoms, No Back Pain, No Neck Pain Skin: No Symptoms, No Rash Neurological: No Symptoms, No Dizziness, No Focal Weakness, No Sensory Changes Psychological: No Symptoms Endocrine: No Symptoms Hematologic/Lymphatic: No Symptoms Immunological/Allergic: No Symptoms All Other Systems: Reviewed and Negative - Past Medical History Pertinent Past Medical History: Yes Neurological History: Other ENT History: No Pertinent History Cardiac History: High Cholesterol, Hypertension, Other Respiratory History: Sleep Apnea Endocrine Medical History: Diabetes Type II Musculoskeletal History: Degenerative Disk Disease, Other GI Medical History: No Pertinent History History: Other Psycho-Social History: Anxiety, Depression Female Reproductive Disorders: No Pertinent History Other Medical History: Chronic back pain. Neuropathy - Past Surgical History Past Surgical History: Yes Neuro Surgical History: No Pertinent History Cardiac: Cardiac Catheterization Respiratory: No Pertinent History Gastrointestinal: Cholecystectomy Genitourinary: No Pertinent History Musculoskeletal: Orthopedic Surgery Female Surgical History: Section, Hysterectomy Other Surgical History: cyst removed from ovaries. BUTCH, burnt nerves in spine - Social History Smoking Status: Current every day smoker How long have you smoked: 40 years Exposure to second hand smoke: Yes Drug Use: none Patient Lives Alone: No - Nursing Vital Signs Nursing Vital Signs: Initial Vital Signs Temperature 98.1 F 05/10/20 12:29 Pulse Rate 94 H 05/10/20 12:29 Blood Pressure 136/84 05/10/20 12:29 O2 Sat by Pulse Oximetry 98 05/10/20 12:29 Pain Scale Pain Intensity 6 - Physical Exam General Appearance: no apparent distress, alert Eyes, Ears, Nose, Throat Exam: moist mucous membranes Neck Exam: normal inspection, non-tender, supple Cardiovascular/Respiratory Exam: chest non-tender, normal breath sounds, regular rate/rhythm, no respiratory distress Gastrointestinal/Abdominal Exam: non-tender, guarding Back Exam: normal inspection, No vertebral tenderness Hips Exam: bilateral: non-tender, normal inspection, normal range of motion, no evidence of injury Legs Exam: bilateral leg: non-tender, normal inspection, normal range of motion, no evidence of injury Knees Exam: bilateral knee: non-tender, normal inspection, normal range of motion, no evidence of injury Ankle Exam: bilateral ankle: non-tender, normal inspection, normal range of motion, no evidence of injury Foot Exam: right foot: soft tissue tenderness, swelling (Dorsum of right foot is swollen tender overlying soft tissue intact. Extremity neurovascular intact distally. Compartments are soft. Cap refill less than 2 seconds.), other, left foot: non-tender, normal inspection, normal range of motion, no evidence of injury Neuro/Tendon Exam: normal sensation, normal motor functions Mental Status Exam: alert, oriented x 3, cooperative Skin Exam: normal color, warm, dry SpO2 Interpretation: normal SpO2: 98 O2 Delivery: Room Air - Course Nursing assessment & vital signs reviewed: Yes - Radiology Exams Foot X-ray Interpretation: Teleradiologist Report (No fracture or dislocation. Tiny heel spur. Mild swelling) Ordered Tests: Active Orders 24 hr Category Date Time Status FOOT (MINIMUM 3 VIEWS) Stat Exams 05/10/20 12:45 Completed - Progress Progress: improved Progress Note: 05/10/20 13:26 Patient reassessed. Patient declined pain medication. X-ray negative for fracture dislocation. There is a tiny heel spur observed. There is some soft tissue swelling. Diagnosis is contusion of foot. Patient declined crutches. 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 Patient states that she has to work. Patient declined a work note. Patient otherwise feels well. She has no other complaints at this time. She states she is ready for discharge. Patient agrees to follow-up with her primary care doctor within 48 hours for reassessment. Counseled pt/family regarding: diagnosis, need for follow-up, rad results - Departure Departure Disposition: Home Clinical Impression: Contusion of foot, right, Fatigue, Heel spur Condition: Stable Critical Care Time: No Referrals: NIKOLAS STALLWORTH MD [Primary Care Provider] - Additional Instructions: Discharge/Care Plan ESTUARDO BROCK was seen on 05/10/20 in the Emergency Room. The patient was counseled regarding Diagnosis,Lab results, Imaging studies, need for follow up and when to return to the Emergency Room. Prescriptions given: Discharge Note I have spoken with the patient and/or caregivers. I have explained the patient's condition, diagnosis and treatment plan based on the information available to me at this time. I have answered the patient's and/or caregiver's questions and addressed any concerns. The patient and/or caregivers have as good understanding of the patient's diagnosis, condition and treatment plan as can be expected at this point. The vital signs have been stable. The patient's condition is stable and appropriate for discharge from the emergency department. The patient will pursue further outpatient evaluation with the primary care physician or other designated or consulting physician as outlined in the discharge instructions. The patient and/or caregivers are agreeable to this plan of care and follow-up instructions have been explained in detail. The patient and/or caregivers have received these instruction. The patient/and or caregivers are aware that any significant change in condition or worsening of symptoms should prompt an immediate return to this or the closest emergency department or call 911.
--- NOTE | 2020-05-10 13:17 | XRAY ---
Indication: Pain following injury. Comparison: None 3 nonweightbearing views right foot demonstrates tiny heel spurs and mild anterior forefoot soft tissue swelling. No other bony, articular, or soft tissue abnormalities.
== END 2020-05-10 13:34 | disposition home or self-care (01) ==
LOC: ED 12:25
DX: S90.31XA Contusion of right foot, initial encounter (principal); W22.8XXA Striking against or struck by other objects, initial encounter; Y93.9 Activity, unspecified; Y92.9 Unspecified place or not applicable; M79.89 Other specified soft tissue disorders; R53.83 Other fatigue; M77.30 Calcaneal spur, unspecified foot; I10 Essential (primary) hypertension; E11.9 Type 2 diabetes mellitus without complications; F41.9 Anxiety disorder, unspecified; Z72.0 Tobacco use
CPT/HCPCS: 73630; 99283

== ENCOUNTER 2022-01-22 12:48 | Emergency (ER) | payer MEDICARE ==
[2022-01-22] MEDS ORDERED: Sodium Chloride 0.9% 1000 ML 1,000 ML IV SCH (14:00)
[2022-01-22 14:19] LABS: Absolute Neutrophil Ct (ANC) 2.38 x10^3/uL (1.4-6.9); Basophil (Absolute #) 0.01 x10^3/uL (0-0.4); Eosinophil (Absolute #) 0 x10^3/uL (0-0.5); Hematocrit 37.4 % (35-47); Hemoglobin 12.2 g/dL (12.0-16.0); Lymphocyte (Absolute #) 0.92 x10^3/uL (1.0-4.6); Lymphocytes % 25.3 % (24.0-44.0); Mean Corpuscular Hemoglobin 30.3 pg (26-32); Mean Corpuscular Hgb Concent. 32.6 g/dL (32-36); Mean Platelet Volume 11.6 fL (7.5-11.0); Monocyte (Absolute #) 0.32 x10^3/uL (0.0-1.3); Monocytes % 8.8 % (0.0-12.0); Neutrophil % 65.3 % (36.0-66.0); Red Blood Count 4.02 x10^6/uL (4.1-5.4); Red Cell Distribution Width 15.6 % (11.5-14.0); White Blood Count 3.6 x10^3/uL (4.0-10.5)
[2022-01-22 14:21] LABS: Bacteria RARE /HPF (NEGATIVE); Mucus SLIGHT /HPF (NEGATIVE); RBC 0-2 /HPF (0-2); WBC 0-2 /HPF (0-5)
[2022-01-22 14:26] LABS: Appearance CLEAR (CLEAR); Bilirubin NEGATIVE (NEGATIVE); Glucose >=1000 mg/dL (NEGATIVE); Ketones NEGATIVE (NEGATIVE); Nitrite NEGATIVE (NEGATIVE); Ph 7.5 (5-6); Protein,Urine Dip NEGATIVE (Negative); RBC NEGATIVE Ery/ul (0-5); Urobilinogen 2 mg/dL (0-1)
[2022-01-22 14:27] LABS: Urine Cultured Indicated? NO
[2022-01-22 14:28] LABS: Dipstick done @ ? MAIN LAB
[2022-01-22 14:29] LABS: INR 1.27 (0.8-3.0); PROTIME 13.2 SECONDS (9.4-12.5)
[2022-01-22] MEDS ORDERED: Sodium Chloride 0.9% 1000 ML 1,000 ML ONE (14:30)
[2022-01-22 14:31] LABS: ALBUMIN 3.6 g/dL (3.5-5.0); ALKALINE PHOSPHATASE 103 U/L (38-126); AMYLASE 107 U/L (30-110); ANION GAP 14.5 MEQ/L (5-15); BLOOD UREA NITROGEN 8 mg/dL (7-17); CHLORIDE 108 mmol/L (98-107); Calcium 9.4 mg/dL (8.4-10.2); Carbon Dioxide 24 mmol/L (22-30); Creatinine 1 0.53 mg/dL (0.52-1.04); EST GLOMERULAR FILTRATION RATE > 60.0 ML/MIN; Glucose 119 mg/dL (74-106); LIPASE 118 U/L (23-300); Potassium 3.1 mmol/L (3.5-5.1); SGOT/AST 99 U/L (14-36); SGPT/ALT 56 U/L (0-35); SODIUM 144 mmol/L (137-145); Total Protein 9.7 g/dL (6.3-8.2)
--- NOTE | 2022-01-22 14:35 | XRAY ---
Indication: Right abdomen pain 3 weeks. Multiple contiguous axial images obtained through the abdomen and pelvis without contrast. Comparison: December 20, 2021 Lung bases demonstrates dependent atelectasis. Heart not enlarged. Noncontrasted stomach and bowel loops nonobstructed. Appendix not visualized. Grossly stable cirrhotic liver, tiny perihepatic fluid, and 18.3 cm splenomegaly. No free air. Again incidental multiple right renal cysts, cholecystectomy, and hysterectomy. Remaining pancreas, adrenal glands, kidneys, ureters, and bladder are unremarkable for noncontrast exam. Again moderate scattered aortoiliac calcifications without AAA. Osseous structures intact again with minimal/mild degenerative changes throughout the spine and L4-L5 degenerative vacuum disc phenomena. Impression: 1. Again cirrhotic liver with tiny perihepatic fluid, massive splenomegaly, right renal cysts, arteriosclerotic disease, and chronic bony findings. 2. Remaining CT abdomen/pelvis without contrast exam is negative.
[2022-01-22 14:53] LABS: Platelet Count 57 x10^3/uL (150-450)
[2022-01-22] MEDS ORDERED: Hydromorphone 1 mg/ml Injection IV ONE ×2 (15:13→16:38)
[2022-01-22] MEDS ORDERED: Zofran 4 MG/2 ML VIAL IV ONE (15:15)
[2022-01-22] MEDS ORDERED: Hydromorphone 1 mg/ml Injection ONE ×2 (15:15→16:39)
[2022-01-22] MEDS ORDERED: Zofran 4 MG/2 ML VIAL ONE (15:15)
[2022-01-22 15:23] LABS: Slide Review 1 YES
--- NOTE | 2022-01-22 15:40 | ERPHSYRPT ---
- History of Present Illness Time Seen by Provider: 01/22/22 13:25 Source: patient Exam Limitations: no limitations Patient Subjective Stated Complaint: C/O right lower abdominal pain. Denies N/V/D. States she had a scan a few weeks ago that showed Cirrhosis and spleen inflammation. She is scheduled to see a GI specialist that Dr. Stallworth set her up with on Thursday but the pain has become too much for her to wait until Thursday for any relief. Triage Nursing Assessment: Patient ambulated back to ED without difficulties. She is alert and oriented and answering questions appropriately. Bowel sounds present. Abdomen is tender to touch. No SOB noted. Physician History: Patient is a 61-year-old female who presents with a complaint of right-sided abdominal pain. She was given a CT scan of the abdomen a few weeks ago which showed some cirrhosis and some splenomegaly. She is scheduled to see a GI specialist on Thursday. But the pain today became too severe for her to wait until Thursday for any relief. Patient denies any nausea vomiting or diarrhea she has had some sweats. The casing fluid tender she is to see is at [facility]. Timing/Duration: week(s) (Several weeks) Severity: moderate Modifying Factors: Improves With: movement Associated Symptoms: nausea, abdominal pain Allergies/Adverse Reactions: No Known Drug Allergies Allergy (Verified 01/22/22 13:19) Home Medications: Hydrochlorothiazide 25 mg [hydroDIURIL 25 MG] 25 mg PO DAILY 01/13/12 [History] Gabapentin 800 mg PO TID 11/07/16 [History] Metformin HCl [Glucophage] 1,000 mg PO BID 08/13/17 [History] Venlafaxine HCl [Venlafaxine HCl ER] 225 mg PO DAILY 08/13/17 [History] Dapagliflozin Propanediol [Farxiga] 10 mg PO DAILY 05/10/20 [History] Quetiapine Fumarate 25 mg PO HS 05/10/20 [History] Simvastatin 40 mg PO HS 05/10/20 [History] Insulin NPH Human Isophane [Novolin N Flexpen] 20 unit SQ BID 01/22/22 [History] Potassium Chloride 1 tab PO DAILY 01/22/22 [History] Hx Tetanus, Diphtheria Vaccination/Date Given: Yes Hx Influenza Vaccination/Date Given: Yes Hx Pneumococcal Vaccination/Date Given: Yes Immunizations Up to Date: Yes Travel Risk - International Travel Have you traveled outside of the country in past 3 weeks: No - Coronavirus Screening Are you exhibiting any of the following symptoms?: No Close contact with a COVID-19 positive Pt in past 14-21 Days: No - Vaccine Status Have you recieved a Covid-19 vaccination: Yes Dope Heater: Pfizer - Vaccination Dates Date of 2cond Vaccination (if applicable): 2020 - Review of Systems Constitutional: No Fever, No Chills Eyes: No Symptoms Ears, Nose, & Throat: No Symptoms Respiratory: No Cough, No Dyspnea Cardiac: No Chest Pain, No Edema, No Syncope Abdominal/Gastrointestinal: Abdominal Pain, Nausea, Vomiting, Other (Pain over the right upper quadrant), No Diarrhea Genitourinary Symptoms: No Dysuria Musculoskeletal: No Back Pain, No Neck Pain Skin: No Rash Neurological: No Dizziness, No Focal Weakness, No Sensory Changes Psychological: No Symptoms Endocrine: No Symptoms All Other Systems: Reviewed and Negative - Past Medical History Pertinent Past Medical History: Yes Neurological History: Other ENT History: No Pertinent History Cardiac History: High Cholesterol, Hypertension, Other Respiratory History: Sleep Apnea Endocrine Medical History: Diabetes Type II Musculoskeletal History: Degenerative Disk Disease, Other GI Medical History: Cirrhosis, Other History: Other Psycho-Social History: Anxiety, Depression Female Reproductive Disorders: No Pertinent History Other Medical History: Chronic back pain. Neuropathy - Past Surgical History Past Surgical History: Yes Neuro Surgical History: No Pertinent History Cardiac: Cardiac Catheterization Respiratory: No Pertinent History Gastrointestinal: Cholecystectomy Genitourinary: No Pertinent History Musculoskeletal: Orthopedic Surgery Female Surgical History: Section, Hysterectomy Other Surgical History: cyst removed from ovaries, spleen inflammation, BUTCH, burnt nerves in spine - Social History Smoking Status: Current every day smoker How long have you smoked: 45 years Exposure to second hand smoke: Yes Drug Use: none Patient Lives Alone: No - Nursing Vital Signs Nursing Vital Signs: Initial Vital Signs Temperature 98.1 F 01/22/22 13:21 Pulse Rate 94 H 01/22/22 13:21 Respiratory Rate 19 01/22/22 13:21 Blood Pressure 151/81 01/22/22 13:21 O2 Sat by Pulse Oximetry 98 01/22/22 13:21 Pain Scale Pain Intensity 8 - Physical Exam General Appearance: moderate distress, alert Eye Exam: PERRL/EOMI, eyes nml inspection Ears, Nose, Throat Exam: normal ENT inspection, TMs normal, pharynx normal, moist mucous membranes Neck Exam: normal inspection, non-tender, supple, full range of motion Respiratory Exam: normal breath sounds, lungs clear, No respiratory distress Cardiovascular Exam: regular rate/rhythm, normal heart sounds, normal peripheral pulses Gastrointestinal/Abdomen Exam: normal bowel sounds, tenderness, guarding, hepatomegaly, splenomegaly, No mass Back Exam: normal inspection, normal range of motion, No CVA tenderness, No vertebral tenderness Extremity Exam: normal inspection, normal range of motion, pelvis stable Neurologic Exam: alert, oriented x 3, cooperative, normal mood/affect, nml cerebellar function, nml station & gait, sensation nml, No motor deficits Skin Exam: normal color, warm, dry, No rash Lymphatic Exam: No adenopathy SpO2 Interpretation: normal SpO2: 98 O2 Delivery: Room Air - Course Nursing assessment & vital signs reviewed: Yes - CT Exams Abdomen/Pelvis CT Interpretation: Tele-radiologist Report Ordered Tests: Active Orders 24 hr Category Date Time Status IV Insertion STAT Care 01/22/22 13:57 Active ABDOMEN AND PELVIS W/0 CONTRAS [CT] Stat Exams 01/22/22 14:18 Completed AMYLASE Stat Lab 01/22/22 14:28 Completed CBC W DIFF Stat Lab 01/22/22 14:28 Completed CMP Stat Lab 01/22/22 14:28 Completed LIPASE Stat Lab 01/22/22 14:28 Completed Lactic Acid Stat Lab 01/22/22 13:57 Completed PROTIME WITH INR Stat Lab 01/22/22 14:28 Completed UA W/RFX CULTURE Stat Lab 01/22/22 14:08 Completed Medication Summary Generic Name Dose Route Start Last Admin Trade Name Freq PRN Reason Stop Dose Admin Sodium Chloride 1,000 mls @ 100 mls/hr 01/22/22 14:00 01/22/22 14:31 Sodium Chloride 0.9% 1000 Ml IV 02/21/22 13:59 100 mls/hr .Q10H MYA Administration Discontinued Medications Generic Name Dose Route Start Last Admin Trade Name Freq PRN Reason Stop Dose Admin Hydromorphone HCl 1 mg 01/22/22 15:13 01/22/22 15:17 Hydromorphone 1 Mg/1ml Inj 1 Mg/Ml Syringe IV 01/22/22 15:14 1 mg STAT ONE Administration Hydromorphone HCl Confirm 01/22/22 15:15 Hydromorphone 1 Mg/1ml Inj 1 Mg/Ml Syringe Administered 01/22/22 15:16 Dose 1 mg .ROUTE .STK-MED ONE Ondansetron HCl 4 mg 01/22/22 15:15 01/22/22 15:17 Ondansetron Hcl 4 Mg/2 Ml Vial IV 01/22/22 15:16 4 mg STAT ONE Administration Ondansetron HCl Confirm 01/22/22 15:15 Ondansetron Hcl 4 Mg/2 Ml Vial Administered 01/22/22 15:16 Dose 4 mg .ROUTE .STK-MED ONE Lab/Rad Data: Laboratory Result Diagrams 01/22/22 14:28 01/22/22 14:28 Laboratory Results 01/22/22 01/22/22 01/22/22 Range/Units 14:28 14:28 14:28 WBC 3.6 L (4.0-10.5) x10^3/uL RBC 4.02 L (4.1-5.4) x10^6/uL Hgb 12.2 (12.0-16.0) g/dL Hct 37.4 (35-47) % MCV 93.0 (78-100) fL MCH 30.3 (26-32) pg MCHC 32.6 (32-36) g/dL RDW 15.6 H (11.5-14.0) % Plt Count 57 L (150-450) x10^3/uL MPV 11.6 H (7.5-11.0) fL Gran % 65.3 (36.0-66.0) % Immature Gran % (Auto) 0.3 (0.00-0.4) % Nucleat RBC Rel Count 0.0 (0.00-0.1) % Eos # (Auto) 0 (0-0.5) x10^3/uL Immature Gran # (Auto) 0.01 (0.00-0.03) x10^3u/L Absolute Lymphs (auto) 0.92 L (1.0-4.6) x10^3/uL Absolute Monos (auto) 0.32 (0.0-1.3) x10^3/uL Absolute Nucleated RBC 0.00 (0.00-0.01) x10^3u/L Lymphocytes % 25.3 (24.0-44.0) % Monocytes % 8.8 (0.0-12.0) % Eosinophils % 0.0 (0.00-5.0) % Basophils % 0.3 (0.0-0.4) % Absolute Granulocytes 2.38 (1.4-6.9) x10^3/uL Basophils # 0.01 (0-0.4) x10^3/uL PT 13.2 H (9.4-12.5) SECONDS INR 1.27 (0.8-3.0) Sodium 144 (137-145) mmol/L Potassium 3.1 L (3.5-5.1) mmol/L Chloride 108 H (98-107) mmol/L Carbon Dioxide 24 (22-30) mmol/L Anion Gap 14.5 (5-15) MEQ/L BUN 8 (7-17) mg/dL Creatinine 0.53 (0.52-1.04) mg/dL Estimated GFR > 60.0 ML/MIN Glucose 119 H (74-106) mg/dL Lactic Acid (0.4-2.0) Calcium 9.4 (8.4-10.2) mg/dL Total Bilirubin 1.40 H (0.2-1.3) mg/dL AST 99 H (14-36) U/L ALT 56 H (0-35) U/L Alkaline Phosphatase 103 (38-126) U/L Ammonia (9-30) umol/L Serum Total Protein 9.7 H (6.3-8.2) g/dL Albumin 3.6 (3.5-5.0) g/dL Amylase 107 (30-110) U/L Lipase 118 (23-300) U/L Urinalys Dipstick Clnc Urine Color (YELLOW) Urine Appearance (CLEAR) Urine pH (5-6) Ur Specific Pine (1.005-1.025) POC Urine Protein Conf (Negative) Urine Ketones (NEGATIVE) Urine Nitrite (NEGATIVE) Urine Bilirubin (NEGATIVE) Urine Urobilinogen (0-1) mg/dL Urine Leukocytes (NEGATIVE) Urine WBC (Auto) (0-5) /HPF Urine RBC (Auto) (0-2) /HPF U Epithel Cells (Auto) (FEW) /HPF Urine Bacteria (Auto) (NEGATIVE) /HPF Urine RBC (0-5) Eloy/ul Urine Mucus (Auto) (NEGATIVE) /HPF Ur Culture Indicated? Urine Glucose (NEGATIVE) mg/dL Slides for Path Review YES 01/22/22 01/22/22 01/22/22 Range/Units 14:08 14:05 13:57 WBC (4.0-10.5) x10^3/uL RBC (4.1-5.4) x10^6/uL Hgb (12.0-16.0) g/dL Hct (35-47) % MCV (78-100) fL MCH (26-32) pg MCHC (32-36) g/dL RDW (11.5-14.0) % Plt Count (150-450) x10^3/uL MPV (7.5-11.0) fL Gran % (36.0-66.0) % Immature Gran % (Auto) (0.00-0.4) % Nucleat RBC Rel Count (0.00-0.1) % Eos # (Auto) (0-0.5) x10^3/uL Immature Gran # (Auto) (0.00-0.03) x10^3u/L Absolute Lymphs (auto) (1.0-4.6) x10^3/uL Absolute Monos (auto) (0.0-1.3) x10^3/uL Absolute Nucleated RBC (0.00-0.01) x10^3u/L Lymphocytes % (24.0-44.0) % Monocytes % (0.0-12.0) % Eosinophils % (0.00-5.0) % Basophils % (0.0-0.4) % Absolute Granulocytes (1.4-6.9) x10^3/uL Basophils # (0-0.4) x10^3/uL PT (9.4-12.5) SECONDS INR (0.8-3.0) Sodium (137-145) mmol/L Potassium (3.5-5.1) mmol/L Chloride (98-107) mmol/L Carbon Dioxide (22-30) mmol/L Anion Gap (5-15) MEQ/L BUN (7-17) mg/dL Creatinine (0.52-1.04) mg/dL Estimated GFR ML/MIN Glucose (74-106) mg/dL Lactic Acid 3.3 H (0.4-2.0) Calcium (8.4-10.2) mg/dL Total Bilirubin (0.2-1.3) mg/dL AST (14-36) U/L ALT (0-35) U/L Alkaline Phosphatase (38-126) U/L Ammonia 45 H (9-30) umol/L Serum Total Protein (6.3-8.2) g/dL Albumin (3.5-5.0) g/dL Amylase (30-110) U/L Lipase (23-300) U/L Urinalys Dipstick Clnc MAIN LAB Urine Color YELLOW (YELLOW) Urine Appearance CLEAR (CLEAR) Urine pH 7.5 (5-6) Ur Specific Pine 1.020 (1.005-1.025) POC Urine Protein Conf NEGATIVE (Negative) Urine Ketones NEGATIVE (NEGATIVE) Urine Nitrite NEGATIVE (NEGATIVE) Urine Bilirubin NEGATIVE (NEGATIVE) Urine Urobilinogen 2 (0-1) mg/dL Urine Leukocytes NEGATIVE (NEGATIVE) Urine WBC (Auto) 0-2 (0-5) /HPF Urine RBC (Auto) 0-2 (0-2) /HPF U Epithel Cells (Auto) NONE (FEW) /HPF Urine Bacteria (Auto) RARE (NEGATIVE) /HPF Urine RBC NEGATIVE (0-5) Eloy/ul Urine Mucus (Auto) SLIGHT (NEGATIVE) /HPF Ur Culture Indicated? NO Urine Glucose >=1000 (NEGATIVE) mg/dL Slides for Path Review - Progress Progress: improved, pain not gone completely Progress Note: 01/22/22 16:26 Patient's work-up was completed and we discussed with Dr. Stallworth who felt that it should be transferred to gastroenterology at [facility] we contacted [facility] we actually spoke with a Dr. Talavera who I believe is a casing fluid tender who said that his recommendation would be an EGD and PPI which we could do here and the fact is that there are no beds at [facility] for at least 48 hours. I discussed that with the patient and with her family and they wish to take her home with something for pain and watch her closely until she can see her casing fluid tender on Thursday. Discussed with : Jarret - Departure Departure Disposition: Home Clinical Impression: Abdominal pain, Hepatomegaly, Hepatic cirrhosis, Splenomegaly Condition: Stable Critical Care Time: No Referrals: NIKOLAS STALLWORTH MD [Primary Care Provider] - Follow up/PCP as directed Instructions: Severe Abdominal Pain, Adult (DC) Prescriptions: Hydrocodone/Acetaminophen [Hydrocodone-Acetamin 5-325 mg] 1 tab PO Q6HPRN PRN 3 Days #12 tablet MDD 4 PRN Reason: Pain PANTOPRAZOLE 40 mg Tablet [Protonix 40MG Tablet] 40 mg PO QAM 30 Days #30 tab
[2022-01-22 16:46] VITALS: BP 148/77; PULSE 84; O2SAT 95
== END 2022-01-22 16:50 | disposition home or self-care (01) ==
LOC: ED 12:48
DX: R16.2 Hepatomegaly with splenomegaly, not elsewhere classified (principal); K74.60 Unspecified cirrhosis of liver; R10.31 Right lower quadrant pain; R10.11 Right upper quadrant pain; E78.5 Hyperlipidemia, unspecified; I10 Essential (primary) hypertension; E11.9 Type 2 diabetes mellitus without complications; Z72.0 Tobacco use; Z79.4 Long term (current) use of insulin; Z79.84 Long term (current) use of oral hypoglycemic drugs; Z79.891 Long term (current) use of opiate analgesic; Z79.899 Other long term (current) drug therapy
CPT/HCPCS: 36000; 36415; 74176; 80053; 81015; 82140; 82150; 83605; 83690; 85025; 85610; 96374; 96375; 96376; 99284; J1170; J2405

== ENCOUNTER 2022-08-13 11:24 | Emergency (ER) | payer MEDICARE ==
--- NOTE | 2022-08-13 11:52 | ERPHSYRPT ---
- History of Present Illness Time Seen by Provider: 08/13/22 11:50 Source: patient, family Exam Limitations: no limitations Patient Subjective Stated Complaint: pt here for a fall down 5 steps outside, she states her legs gave out. which happens sometimes, co pain to right rib area and right arm Triage Nursing Assessment: pt alert, walked in slowly guarding right side, assist of one to get undressed, resp easy, skin w/d/p, has deep abrasion to right side of arm. no bruising to left rib area, blure bruising to right flank area, no edema noted Physician History: This is a 62-year-old white female patient of Dr. Stallworth who has multiple medical issues including cirrhosis, diabetes, hyperlipidemia, hypertension, chronic back pain, peripheral neuropathy and gastroesophageal reflux disease. Patient fell down 5 steps landing on her right ribs and right elbow. She does not have any neck pain or headache pain. She did not lose consciousness. Patient has not had a tetanus injection in over 10 years. She says at times her legs "give out" and then she tripped and tried to maintain her balance. She denies shortness of breath. She denies abdominal pain. Occurred: just prior to arrival Reason for Fall: lost balance, tripped Injuries/Pain Location: upper extremity (Right elbow), chest (Right lateral chest/ribs) Loss of Consciousness: no loss of consciousness Quality: aching Severity of Pain-Max: moderate Severity of Pain-Current: moderate Associated Symptoms (Fall): extremity injury (Right elbow), other (Right elbow pain, right rib pain), No abdominal pain, No back pain, No chest pain, No neck pain, No shortness of breath Allergies/Adverse Reactions: No Known Drug Allergies Allergy (Verified 01/22/22 13:19) Home Medications: Hydrochlorothiazide 25 mg [hydroDIURIL 25 MG] 25 mg PO DAILY 01/13/12 [History] Gabapentin 800 mg PO TID 11/07/16 [History] Metformin HCl [Glucophage] 1,000 mg PO BID 08/13/17 [History] Venlafaxine HCl [Venlafaxine HCl ER] 225 mg PO DAILY 08/13/17 [History] Dapagliflozin Propanediol [Farxiga] 10 mg PO DAILY 05/10/20 [History] Quetiapine Fumarate 25 mg PO HS 05/10/20 [History] Insulin NPH Human Isophane [Novolin N Flexpen] 20 unit SQ BID 01/22/22 [History] Potassium Chloride 1 tab PO DAILY 01/22/22 [History] Hx Tetanus, Diphtheria Vaccination/Date Given: Yes Hx Influenza Vaccination/Date Given: Yes Hx Pneumococcal Vaccination/Date Given: Yes Immunizations Up to Date: Yes Travel Risk - International Travel Have you traveled outside of the country in past 3 weeks: No - Coronavirus Screening Are you exhibiting any of the following symptoms?: No Close contact with a COVID-19 positive Pt in past 14-21 Days: No - Vaccine Status Have you recieved a Covid-19 vaccination: Yes 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: [place] - Vaccination Dates Date of 2cond Vaccination (if applicable): 2020 - Review of Systems Constitutional: No Symptoms Eyes: No Symptoms Ears, Nose, & Throat: No Symptoms Respiratory: No Symptoms Cardiac: No Symptoms Abdominal/Gastrointestinal: No Symptoms Genitourinary Symptoms: No Symptoms Musculoskeletal: Injury (Right elbow) Skin: Other (Abrasion of skin overlying right elbow) Neurological: No Symptoms Psychological: No Symptoms Endocrine: No Symptoms Hematologic/Lymphatic: No Symptoms Immunological/Allergic: No Symptoms All Other Systems: Reviewed and Negative - Past Medical History Pertinent Past Medical History: Yes Neurological History: Other ENT History: No Pertinent History Cardiac History: High Cholesterol, Hypertension, Other Respiratory History: Sleep Apnea Endocrine Medical History: Diabetes Type II Musculoskeletal History: Degenerative Disk Disease, Other GI Medical History: Cirrhosis, Other History: Other Psycho-Social History: Anxiety, Depression Female Reproductive Disorders: No Pertinent History Other Medical History: Chronic back pain. Neuropathy - Past Surgical History Past Surgical History: Yes Neuro Surgical History: No Pertinent History Cardiac: Cardiac Catheterization Respiratory: No Pertinent History Gastrointestinal: Cholecystectomy Genitourinary: No Pertinent History Musculoskeletal: Orthopedic Surgery Female Surgical History: Section, Hysterectomy Other Surgical History: cyst removed from ovaries, spleen inflammation, BUTCH, burnt nerves in spine - Social History Smoking Status: Current every day smoker How long have you smoked: 45 years Exposure to second hand smoke: Yes Drug Use: none Patient Lives Alone: No - Nursing Vital Signs Nursing Vital Signs: Initial Vital Signs Temperature 97.0 F 08/13/22 11:40 Pulse Rate 80 08/13/22 11:40 Respiratory Rate 18 08/13/22 11:40 Blood Pressure 103/51 08/13/22 11:40 O2 Sat by Pulse Oximetry 98 08/13/22 11:40 Pain Scale Pain Intensity 10 - [place] Coma Score Best Eye Response ([place]): (4) open spontaneously Best Verbal Response ([place]): (5) oriented Best Motor Response ([place]): (6) obeys commands [place] Total: 15 - Physical Exam General Appearance: no apparent distress, alert, anxiety Head Injury: no evidence of injury Eye Exam: PERRL/EOMI, eyes nml inspection ENT Exam: airway nml, nml ext.inspection Neck Exam: supple, trachea midline, full range of motion, normal alignment, normal inspection Respiratory/Chest Exam: normal breath sounds, rib tenderness (Right lateral), No respiratory distress, No ecchymosis, No crepitus Cardiovascular Exam: normal heart sounds, regular rate/rhythm Gastrointestinal Exam: soft, normal bowel sounds, No tenderness Rectal Exam: not done Back Exam: normal inspection, normal range of motion, No CVA tenderness, No vertebral tenderness Extremity Exam: normal range of motion, pelvis stable, evidence of injury (Abrasion of skin overlying right elbow), tenderness, No deformities, No lacerations Neurologic Exam: alert, oriented x 3, cooperative, rubber chemist II-XII nml as tested, n ormal mood/affect, nml cerebellar function, nml station & gait, sensation nml Skin Exam: abrasion (Skin overlying right elbow) SpO2 Interpretation: normal SpO2: 98 O2 Delivery: Room Air - Course Nursing assessment & vital signs reviewed: Yes Ordered Tests: Active Orders 24 hr Category Date Time Status Wound Care STAT Care 08/13/22 12:03 Active ELBOW (MINIMUM 3 VIEWS) Stat Exams 08/13/22 12:03 Completed FOREARM Stat Exams 08/13/22 12:03 Completed HEAD WITHOUT CONTRAST [CT] Stat Exams 08/13/22 12:29 Completed RIBS UNILATERAL Stat Exams 08/13/22 11:54 Completed SHOULDER Stat Exams 08/13/22 11:54 Completed Medication Summary Discontinued Medications Generic Name Dose Route Start Last Admin Trade Name Freq PRN Reason Stop Dose Admin Hydrocodone Bitart/Acetaminophen 1 tab 08/13/22 12:04 08/13/22 12:21 Hydrocodone/Apap 5/325 1 Tab Tablet PO 08/13/22 12:05 1 tab STAT ONE Administration Hydrocodone Bitart/Acetaminophen Confirm 08/13/22 12:08 Hydrocodone/Apap 5/325 1 Tab Tablet Administered 08/13/22 12:09 Dose 1 tab .ROUTE .STK-MED ONE Cephalexin HCl 500 mg 08/13/22 12:03 08/13/22 12:20 Cephalexin Mh500 Mg Capsule PO 08/13/22 12:04 500 mg STAT ONE Administration Cephalexin HCl Confirm 08/13/22 12:07 Cephalexin Mh500 Mg Capsule Administered 08/13/22 12:08 Dose 500 mg .ROUTE .STK-MED ONE Diphtheria/Tetanus/Acell Pertussis 0.5 ml 08/13/22 12:03 08/13/22 12:22 Tdap --Diph,Pertuss(Acell),Tet Vac/Pf 0.5 Ml Vial IM 08/13/22 12:04 0.5 ml .ONCE ONE Administration Diphtheria/Tetanus/Acell Pertussis Confirm 08/13/22 12:08 Tdap --Diph,Pertuss(Acell),Tet Vac/Pf 0.5 Ml Vial Administered 08/13/22 12:09 Dose 0.5 ml IM .STK-MED ONE - Progress Progress Note: 08/13/22 12:33 Patient told me and the nurse that she did not hit her head. However, when the supervisor maintenance and custodians ER emergency veterinary technician went in she did tell him that she thinks she might have hit her head. Therefore I am adding a CT scan of the head without contrast 08/13/22 13:57 CT scan of the head shows no acute intracranial abnormality. X-ray of right forearm shows no acute fracture or dislocation. X-ray of right elbow shows no acute fracture or dislocation. X-ray of right shoulder shows no acute fracture or dislocation. X-ray of right ribs shows nondisplaced fractures of ribs 7 and 8 without hemothorax or pneumothorax. Counseled pt/family regarding: diagnosis, need for follow-up, rad results - Departure Departure Disposition: Home Clinical Impression: Fall with injury, Abrasion of right elbow, initial encounter, Right rib fracture Condition: Stable Critical Care Time: No Referrals: NIKOLAS STALLWORTH MD [Primary Care Provider] - Follow up/PCP as directed Additional Instructions: Keep abrasion site clean daily with soap and water and apply thin layer of antibiotic ointment of choice. Take your antibiotics as prescribed. Take all your other medication as prescribed. Follow-up with your primary care provider for further evaluation and pain management. Call today to make an appointment. Focus on taking deep breaths. May use ice pack to the area as well. If there are no contraindications, may add ibuprofen, 600 mg orally with food 3 times a day for the next 5 days. Do not wear a rib belt. Prescriptions: Hydrocodone/APAP 5/325 [[place] 5/325 mg] 1 each PO Q8H PRN PRN #6 tablet MDD 3 PRN Reason: Pain Cephalexin Mh 500 mg [Keflex 500 mg] 500 mg PO TID #15 cap
[2022-08-13] MEDS ORDERED: KEFLEX 500 MG PO ONE (12:03)
[2022-08-13] MEDS ORDERED: Adacel Vial IM ONE ×2 (12:03→12:08)
[2022-08-13] MEDS ORDERED: NORCO 5/325 MG PO ONE (12:04)
[2022-08-13] MEDS ORDERED: KEFLEX 500 MG ONE (12:07)
[2022-08-13] MEDS ORDERED: NORCO 5/325 MG ONE (12:08)
--- NOTE | 2022-08-13 12:51 | XRAY ---
Indication: Posterior head injury/swelling following fall. Multiple contiguous axial images obtained through the head without contrast. Comparison: None Age-appropriate global atrophy. No acute intracranial hemorrhage, abnormal extra-axial fluid collection, or mass effect. Fourth ventricle is midline without hydrocephalus. Brunner-white matter differentiation is preserved. Bony calvarium intact. Visualized paranasal sinuses and mastoid air cells are clear. Impression: Negative CT head without contrast exam.
--- NOTE | 2022-08-13 13:01 | XRAY ---
Indication: Pain following fall. Comparison: None 3 view right shoulder demonstrates osteopenia, mild acromioclavicular degenerative changes, and minimal right lung base subsegmental atelectasis/scarring. No other bony, articular, or soft tissue abnormalities.
--- NOTE | 2022-08-13 13:01 | XRAY ---
Indication: Pain following fall. Comparison: None 3 view right elbow demonstrates osteopenia and tiny lateral epicondyle spurring. No other bony, articular, or soft tissue abnormalities.
--- NOTE | 2022-08-13 13:03 | XRAY ---
Indication: Pain following fall. Comparison: None 2 view right forearm demonstrates osteopenia. No other bony, articular, or soft tissue abnormalities.
--- NOTE | 2022-08-13 13:03 | XRAY ---
Indication: Pain following fall. Comparison: None 2 view right ribs demonstrates nondisplaced lateral 7/8 rib fractures without hemothorax/pneumothorax. Elsewhere osteopenia and minimal right lung base subsegmental atelectasis. No other bony, articular, or soft tissue abnormalities.
[2022-08-13 14:10] VITALS: PULSE 78; O2SAT 97
[2022-08-13 14:32] VITALS: BP 113/45
== END 2022-08-13 14:32 | disposition home or self-care (01) ==
LOC: ED 11:24
DX: S50.311A Abrasion of right elbow, initial encounter (principal); S22.41XA Multiple fractures of ribs, right side, initial encounter for closed fracture; W10.9XXA Fall (on) (from) unspecified stairs and steps, initial encounter; E11.42 Type 2 diabetes mellitus with diabetic polyneuropathy; E78.5 Hyperlipidemia, unspecified; I10 Essential (primary) hypertension; Z79.84 Long term (current) use of oral hypoglycemic drugs; Z79.4 Long term (current) use of insulin; Z79.899 Other long term (current) drug therapy; Z72.0 Tobacco use; Z79.891 Long term (current) use of opiate analgesic
CPT/HCPCS: 70450; 71100; 73030; 73080; 73090; 90471; 90715; 99283; A9270-GY

== ENCOUNTER 2022-11-03 15:36 | Emergency (ER) | payer MEDICARE ==
--- NOTE | 2022-11-03 15:54 | ERPHSYRPT ---
- History of Present Illness Time Seen by Provider: 11/03/22 15:53 Source: patient Exam Limitations: no limitations Physician History: This is a 62-year-old white female patient of Dr. Stallworth who was brought in by private vehicle by family member who provided additional information. Patient was on the ground and could not get up yesterday. She does not recall the events. She did not hit her head as far she recalls. She occasionally has her legs "give out" and feels this is likely what happened. Patient sees Dr. Becker, pain specialist on 11/11/2022. Patient has a history of cirrhosis, diabetes, hyperlipidemia, gastroesophageal reflux disease, peripheral neuropathy and has chronic back pain issues. Timing/Duration: yesterday Method of Injury: unknown Quality: sharp Back Pain Location: lumbar spine, paraspinous muscles Severity of Pain-Max: moderate Severity of Pain-Current: moderate Associated Symptoms: lower back pain, muscle spasms, No urinary incontinence, No loss of bowel control, No problems urinating, No numbness in legs/feet, No weakness Previous symptoms: same symptoms as today, no recent treatment Allergies/Adverse Reactions: No Known Drug Allergies Allergy (Verified 11/03/22 15:42) Home Medications: Hydrochlorothiazide 25 mg [hydroDIURIL 25 MG] 25 mg PO DAILY 01/13/12 [History] Gabapentin 800 mg PO TID 11/07/16 [History] Metformin HCl [Glucophage] 1,000 mg PO BID 08/13/17 [History] Venlafaxine HCl [Venlafaxine HCl ER] 225 mg PO DAILY 08/13/17 [History] Dapagliflozin Propanediol [Farxiga] 10 mg PO DAILY 05/10/20 [History] Quetiapine Fumarate 25 mg PO HS 05/10/20 [History] Insulin NPH Human Isophane [Novolin N Flexpen] 20 unit SQ BID 01/22/22 [History] Potassium Chloride 1 tab PO DAILY 01/22/22 [History] Hx Tetanus, Diphtheria Vaccination/Date Given: Yes Hx Influenza Vaccination/Date Given: Yes Hx Pneumococcal Vaccination/Date Given: Yes Travel Risk - International Travel Have you traveled outside of the country in past 3 weeks: No - Coronavirus Screening Are you exhibiting any of the following symptoms?: No Close contact with a COVID-19 positive Pt in past 14-21 Days: No - Vaccine Status Have you recieved a Covid-19 vaccination: Yes Airways Operations Specialist: Pfizer - Vaccination Dates Date of 2cond Vaccination (if applicable): 2020 - Review of Systems Constitutional: No Symptoms Eyes: No Symptoms Ears, Nose, & Throat: No Symptoms Respiratory: No Symptoms Cardiac: No Symptoms Abdominal/Gastrointestinal: No Symptoms Genitourinary Symptoms: No Symptoms Musculoskeletal: Back Pain Skin: No Symptoms Neurological: No Symptoms Psychological: No Symptoms Endocrine: No Symptoms Hematologic/Lymphatic: No Symptoms Immunological/Allergic: No Symptoms All Other Systems: Reviewed and Negative - Past Medical History Pertinent Past Medical History: Yes Neurological History: Other ENT History: No Pertinent History Cardiac History: High Cholesterol, Hypertension, Other Respiratory History: Sleep Apnea Endocrine Medical History: Diabetes Type II Musculoskeletal History: Degenerative Disk Disease, Other GI Medical History: Cirrhosis, Other History: Other Psycho-Social History: Anxiety, Depression Female Reproductive Disorders: No Pertinent History Other Medical History: Chronic back pain. Neuropathy - Past Surgical History Past Surgical History: Yes Neuro Surgical History: No Pertinent History Cardiac: Cardiac Catheterization Respiratory: No Pertinent History Gastrointestinal: Cholecystectomy Genitourinary: No Pertinent History Musculoskeletal: Orthopedic Surgery Female Surgical History: Section, Hysterectomy Other Surgical History: cyst removed from ovaries, spleen inflammation, BUTCH, burnt nerves in spine - Social History Smoking Status: Current every day smoker How long have you smoked: 45 years Exposure to second hand smoke: Yes Drug Use: none Patient Lives Alone: No - Nursing Vital Signs Nursing Vital Signs: Initial Vital Signs Temperature 99.4 F 11/03/22 15:55 Pulse Rate 100 H 11/03/22 15:55 Respiratory Rate 18 11/03/22 15:55 Blood Pressure 105/65 11/03/22 15:55 O2 Sat by Pulse Oximetry 100 11/03/22 15:55 Pain Scale Pain Intensity [Back] 10 Pain Intensity 10 - Physical Exam General Appearance: no apparent distress, alert Eye Exam: PERRL/EOMI, eyes nml inspection Ears, Nose, Throat Exam: normal ENT inspection, moist mucous membranes Neck Exam: normal inspection, non-tender, supple, full range of motion Respiratory Exam: normal breath sounds, lungs clear, No chest tenderness, No respiratory distress Cardiovascular Exam: regular rate/rhythm, normal heart sounds, normal peripheral pulses Gastrointestinal Exam: No tenderness Pelvic Exam: not done Rectal Exam: not done Back Exam: normal inspection, muscle spasm, No vertebral tenderness, No point tenderness Extremity Exam: normal inspection, normal range of motion, pelvis stable Neurologic Exam: alert, oriented x 3, cooperative, family readiness support assistant II-XII nml as tested, normal mood/affect Skin Exam: normal color, warm, dry Lymphatic Exam: No adenopathy SpO2 Interpretation: normal O2 Delivery: Room Air - Course Nursing assessment & vital signs reviewed: Yes Ordered Tests: Active Orders 24 hr Category Date Time Status HEAD WITHOUT CONTRAST [CT] Stat Exams 11/03/22 15:57 Completed LUMBAR SPINE W/O [CT] Stat Exams 11/03/22 15:57 Completed Medication Summary Discontinued Medications Generic Name Dose Route Start Last Admin Trade Name Freq PRN Reason Stop Dose Admin Hydromorphone HCl 1 mg 11/03/22 16:19 Hydromorphone 1 Mg/1ml Inj 1 Mg/Ml Syringe IM 11/03/22 16:20 STAT ONE Ondansetron HCl 4 mg 11/03/22 16:19 Zofran 4 Mg/Udtablet Orally Disintegrating PO 11/03/22 16:20 STAT ONE - Progress Progress: improved, pain not gone completely Progress Note: 11/03/22 17:11 CAT scan of the head was interpreted by the radiologist. This test was done without contrast. There is no evidence of any acute intracranial abnormality. CAT scan of the lumbar spine without contrast was interpreted by the radiologist. I reviewed the impression. There is a new endplate L1 fracture with 50% height loss. There is no evidence of any spinal canal or foraminal encroachment. The remainder of the study shows stable remote fractures in the lumbar spine. 11/03/22 17:17 Patient's medical issue is 1 of moderate complexity. This is based on the patient's past medical history, the review of the patient's medication list, review of the patient's allergy list, history of present illness and the work-up performed. Work-up includes CT scan of the head and CT scan of the lumbar spine. The results were reviewed by me. Patient will need to follow-up with her pain well as her primary care physician. The discharge plan will be to do the follow-up as instructed. In addition we will send a prescription of Percocet and prednisone to her pharmacy. She will need to monitor her blood sugar closely while on the prednisone. Counseled pt/family regarding: diagnosis, need for follow-up, rad results Medical Desision Making - Discussion of managment Reviewed:: Test results Agreed on:: Treatment plan, need for follow-up - Diagnostic Testing Diagnostic test were ordered, analyzed, and reviewed by me: Yes Radiological Interpretation: Reviewed by me, Teleradiologist Report - Risk of complications The pt has a mod risk of morbidity or mortality based on: Need for prescription drug management - Departure Departure Disposition: Home Clinical Impression: L1 vertebral fracture Condition: Stable Critical Care Time: No Referrals: NIKOLAS STALLWORTH MD [Primary Care Provider] - Follow up/PCP as directed Additional Instructions: Take your medication as prescribed. Call your prescribing physician and your pain specialist tomorrow morning to make arrangements for follow-up and see if you can be evaluated earlier than your appointment on 11/11/2022. Monitor your blood sugar closely while taking the steroids. Prescriptions: Oxycodone HCl/Acetaminophen [Percocet 5-325 mg Tablet] 1 each PO Q8H PRN PRN #6 tablet MDD 3 PRN Reason: Moderate To Severe Pain Prednisone 10 mg [Deltasone 10 mg] 10 mg PO TID #12 tablet
[2022-11-03] MEDS ORDERED: ZOFRAN ODT 4 MG PO ONE (16:19)
[2022-11-03] MEDS ORDERED: Hydromorphone 1 mg/ml Injection IM ONE (16:19)
--- NOTE | 2022-11-03 16:35 | XRAY ---
Indication: Repeat fall. Multiple contiguous axial images obtained through the head without contrast. Comparison: August 13, 2022 Again age-appropriate global atrophy. No acute intracranial hemorrhage, abnormal extra-axial fluid collection, or mass effect. Fourth ventricle is midline without hydrocephalus. Brunner-white matter differentiation preserved. Bony calvarium intact. Visualized paranasal sinuses and mastoid air cells are clear. Impression: Continued negative CT head without contrast exam.
--- NOTE | 2022-11-03 16:41 | XRAY ---
Indication: Repeat fall. Multiple contiguous axial images obtained through the lumbar spine. Sagittal and coronal reformatted images obtained. Comparison: MRI lumbar spine September 26, 2022 Osseous structures demineralized. Stable remote superior endplate fracture L3 with approximately 25% height loss. New L1 superior and inferior endplate acute fractures with approximately 50% height loss. No other fractures demonstrates spinal canal or foraminal encroachment. Disc levels again demonstrates mild L3-L5 broad-based disc bulge without disc herniation or canal stenosis. Incidental T12-L1 and L4-L5 degenerative vacuum disc phenomena. Facets are symmetric. Sagittal and coronal reformatted images demonstrate normal lumbar alignment with stable L4-L5 disc space narrowing. Visualized noncontrasted soft tissues again demonstrates incompletely visualized bilateral renal cysts, largest on the right measuring at least 5.6 cm. Also 3 mm nonobstructing right renal calculus and mild scattered aortoiliac calcifications. Impression: 1. New acute L1 endplate fractures with approximately 50% height loss. 2. Grossly stable remote L3 superior endplate fracture, L3-L5 degenerative disc disease, and bilateral renal cysts. 3. Incidental osteopenia, nonobstructing right renal micro-calculu, and arteriosclerotic disease.
[2022-11-03] MEDS ORDERED: Hydromorphone 1 mg/ml Injection ONE (17:16)
[2022-11-03] MEDS ORDERED: ZOFRAN ODT 4 MG ONE (17:16)
[2022-11-03 17:17] VITALS: BP 101/62; PULSE 94; O2SAT 97
== END 2022-11-03 17:33 | disposition home or self-care (01) ==
LOC: ED 15:36
DX: S32.019A Unspecified fracture of first lumbar vertebra, initial encounter for closed fracture (principal); W19.XXXA Unspecified fall, initial encounter; E11.42 Type 2 diabetes mellitus with diabetic polyneuropathy; E78.5 Hyperlipidemia, unspecified; I10 Essential (primary) hypertension; Z79.84 Long term (current) use of oral hypoglycemic drugs; Z79.4 Long term (current) use of insulin; Z79.891 Long term (current) use of opiate analgesic; Z79.52 Long term (current) use of systemic steroids; Z72.0 Tobacco use
CPT/HCPCS: 70450; 72131; 96372; 99283; J1170; Q0162

== ENCOUNTER 2022-11-26 06:51 | Day surgery (SDC) | payer MEDICARE ==
[2022-11-26] MEDS ORDERED: Depo-Medrol 40 MG/ML IM ONE (06:52)
[2022-11-26] MEDS ORDERED: BUPIVACAINE 0.5% VIAL IJ ONE (06:52)
[2022-11-26] MEDS ORDERED: DIPRIVAN 200 MG/20 ML IV ONE (08:41)
--- NOTE | 2022-11-26 12:26 | XRAY ---
Indication: Bilateral SI joint injection. Intraoperative fluoroscopy provided for 16 seconds. 4 digital spot images submitted for interpretation demonstrates posterior needle tip projecting over the left and right SI joint. Correlate with intraoperative findings/report.
--- NOTE | 2022-11-26 12:41 | XRAY ---
16 seconds of fluoroscopy was used in surgery for a bilateral sacroiliac joint injection.
[2022-11-26] MEDS ORDERED: Lactated Ringers 1,000 ML IV ONE (13:50)
== END 2022-11-26 08:50 | disposition home or self-care (01) ==
LOC: SDC-PAIN 06:51
PROVIDERS: ATTEND Psychiatry & Neurology Pain Medicine
DX: M46.1 Sacroiliitis, not elsewhere classified (principal); E11.9 Type 2 diabetes mellitus without complications; Z79.899 Other long term (current) drug therapy
CPT/HCPCS: 01992; 27096; 72202; 77002; 82947; G0260; J1030; J2704

== ENCOUNTER 2022-12-17 10:00 | Day surgery (SDC) | payer MEDICARE ==
[2022-12-17] MEDS ORDERED: BUPIVACAINE 0.5% VIAL IJ ONE (10:01)
[2022-12-17] MEDS ORDERED: LIDOCAINE HCL 1% 50 MG/5 ML VL PF IJ ONE (10:01)
[2022-12-17] MEDS ORDERED: Depo-Medrol 40 MG/ML IM ONE (10:01)
[2022-12-17] MEDS ORDERED: DIPRIVAN 200 MG/20 ML IV ONE (11:22)
--- NOTE | 2022-12-17 13:51 | XRAY ---
Indication: Right L4-S1 RFA. Intraoperative fluoroscopy provided for 19 seconds. 4 digital spot image submitted for interpretation demonstrates posterior needle tips projecting over the expected right L4-S1 nerve roots. Correlate with intraoperative findings/report.
[2022-12-17] MEDS ORDERED: Lactated Ringers 1,000 ML IV ONE (14:15)
--- NOTE | 2022-12-17 15:56 | XRAY ---
19 seconds of fluoroscopy was used in surgery for a right L4-S1 RFA.
== END 2022-12-17 11:30 | disposition home or self-care (01) ==
LOC: SDC-PAIN 10:00
PROVIDERS: ATTEND Psychiatry & Neurology Pain Medicine
DX: M47.816 Spondylosis without myelopathy or radiculopathy, lumbar region (principal); E11.9 Type 2 diabetes mellitus without complications; Z79.899 Other long term (current) drug therapy
CPT/HCPCS: 64635; 64636; 72100; 77002; 82947; J1030; J2001; J2704

== ENCOUNTER 2022-12-24 09:16 | Day surgery (SDC) | payer MEDICARE ==
[2022-12-24] MEDS ORDERED: Depo-Medrol 40 MG/ML IM ONE (09:17)
[2022-12-24] MEDS ORDERED: LIDOCAINE HCL 1% 50 MG/5 ML VL PF IJ ONE (09:17)
[2022-12-24] MEDS ORDERED: BUPIVACAINE 0.5% VIAL IJ ONE (09:17)
[2022-12-24] MEDS ORDERED: DIPRIVAN 200 MG/20 ML IV ONE (11:27)
--- NOTE | 2022-12-24 12:12 | XRAY ---
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 Intraoperative fluoroscopy provided for 25 seconds. 6 digital spot image submitted for interpretation demonstrates posterior needle tips projecting over the expected left L4-S1 nerve roots. Correlate with intraoperative findings/report.
--- NOTE | 2022-12-24 13:49 | XRAY ---
Indication: Left L4-S1 MERCHANDISE SUPPORT ASSOCIATE. Intraoperative fluoroscopy provided for 25 seconds. 6 digital spot image submitted for interpretation demonstrates posterior needle tips projecting over the expected left L4-S1 nerve roots. Correlate with intraoperative findings/report.
[2022-12-24] MEDS ORDERED: Lactated Ringers 1,000 ML IV ONE (15:20)
== END 2022-12-24 11:59 | disposition home or self-care (01) ==
LOC: SDC-PAIN 09:16
PROVIDERS: ATTEND Psychiatry & Neurology Pain Medicine
DX: M47.816 Spondylosis without myelopathy or radiculopathy, lumbar region (principal); Z79.899 Other long term (current) drug therapy
CPT/HCPCS: 64635; 64636; 72100; 77002; 82947; J1030; J2001; J2704

== ENCOUNTER 2023-04-01 08:40 | Day surgery (SDC) | payer MEDICARE ==
[2023-04-01] MEDS ORDERED: BUPIVACAINE 0.5% VIAL IJ ONE (08:41)
[2023-04-01] MEDS ORDERED: Depo-Medrol 40 MG/ML IM ONE (08:41)
[2023-04-01] MEDS ORDERED: DIPRIVAN 200 MG/20 ML IV ONE (10:44)
[2023-04-01] MEDS ORDERED: Xylocaine-Mpf 2% 5 Ml Vial ONE (10:48)
--- NOTE | 2023-04-01 12:22 | XRAY ---
Indication: Bilateral SI joint injection. Intraoperative fluoroscopy provided for 16 seconds. 4 digital spot image submitted for interpretation demonstrates posterior needle tip projecting over the expected left and right SI joint. Correlate with intraoperative findings/report.
--- NOTE | 2023-04-01 12:27 | XRAY ---
16 seconds of fluoroscopy was used in surgery for a bilateral sacroiliac joint injection.
[2023-04-01] MEDS ORDERED: Lactated Ringers 1,000 ML IV ONE (12:29)
== END 2023-04-01 11:14 | disposition home or self-care (01) ==
LOC: SDC-PAIN 08:40
PROVIDERS: ATTEND Psychiatry & Neurology Pain Medicine
DX: M46.1 Sacroiliitis, not elsewhere classified (principal); E11.9 Type 2 diabetes mellitus without complications; Z79.899 Other long term (current) drug therapy
CPT/HCPCS: 01992; 27096; 72202; 77002; 82947; G0260; J1030; J2704

== ENCOUNTER 2023-04-04 10:30 | Emergency (ER) | payer MEDICARE ==
--- NOTE | 2023-04-04 10:44 | ERPHSYRPT ---
- History of Present Illness Time Seen by Provider: 04/04/23 10:43 Historian: patient Exam Limitations: no limitations Physician History: This is a 62-year-old white female patient of Dr. Nesbitt who is never seen a director of psychology in the past, and presents with bright red blood per rectum and black stools as well as vomiting blood and urinating blood. Patient has kn own history of hepatitis C that was treated 3 months ago and cirrhosis. She underwent a paracentesis 2 weeks ago. Patient underwent a steroid injection in her back 3 days ago and then the symptoms as described above began 2 days ago. She feels weak. She has no abdominal pain. She has no chest pain. She has chronic shortness of breath and is not different than usual. Patient has a history of hypertension, diabetes, hyperlipidemia, degenerative disc disease, cirrhosis on lactulose, peripheral neuropathy and chronic low back pain. Patient denies illicit drug use and she denies alcohol use Timing/Duration: day(s) (2 days ago) Activities at Onset: none Severity of Pain-Max: none Severity of Pain-Current: none Modifying Factors: Improves With: vomiting (With emesis) Associated Symptoms: nausea, vomiting (With emesis), weakness, other (Gross hematuria and hematochezia) Previous symptoms: no prior history Allergies/Adverse Reactions: No Known Drug Allergies Allergy (Verified 04/04/23 11:15) Home Medications: Gabapentin 400 mg PO TID 11/07/16 [History] Metformin HCl [Glucophage] 1,000 mg PO BID 08/13/17 [History] Venlafaxine HCl [Venlafaxine HCl ER] 225 mg PO DAILY 08/13/17 [History] Dapagliflozin Propanediol [Farxiga] 10 mg PO DAILY 05/10/20 [History] Quetiapine Fumarate 25 mg PO HS 05/10/20 [History] Potassium Chloride 1 tab PO DAILY 01/22/22 [History] Lactulose [Constulose] 10 gm PO UD 02/16/23 [History] Ferrous Sulfate [Ferosul] 325 mg PO BID 04/04/23 [History] Furosemide 40 mg PO DAILY 04/04/23 [History] Hydrocodone/Acetaminophen [Hydrocodone-Acetamin 10-325 mg] 1 tablet PO TID 04/04/23 [History] Hydroxyzine HCl 25 mg [Atarax 25 mg] 25 mg PO BID 04/04/23 [History] Omeprazole 20 mg PO DAILY 04/04/23 [History] Ramipril [Altace] 10 mg PO DAILY 04/04/23 [History] Spironolactone 100 mg PO DAILY 04/04/23 [History] Hx Tetanus, Diphtheria Vaccination/Date Given: Yes Hx Influenza Vaccination/Date Given: Yes Hx Pneumococcal Vaccination/Date Given: Yes Travel Risk - International Travel Have you traveled outside of the country in past 3 weeks: No - Coronavirus Screening Are you exhibiting any of the following symptoms?: No Close contact with a COVID-19 positive Pt in past 14-21 Days: No - Vaccine Status Have you recieved a Covid-19 vaccination: Yes 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 - Vaccination Dates Date of 2cond Vaccination (if applicable): 2020 - Review of Systems Constitutional: No Symptoms Eyes: No Symptoms Ears, Nose, & Throat: No Symptoms Respiratory: No Symptoms Cardiac: No Symptoms Abdominal/Gastrointestinal: Nausea, Vomiting, Hematemesis, Hematochezia, Appetite Changes Genitourinary Symptoms: Hematuria (Gross) Musculoskeletal: No Symptoms Skin: No Symptoms Neurological: No Symptoms Psychological: No Symptoms Endocrine: No Symptoms Hematologic/Lymphatic: No Symptoms Immunological/Allergic: No Symptoms - Past Medical History Pertinent Past Medical History: Yes Neurological History: Other ENT History: No Pertinent History Cardiac History: High Cholesterol, Hypertension, Other Respiratory History: Sleep Apnea Endocrine Medical History: Diabetes Type II Musculoskeletal History: Degenerative Disk Disease, Other GI Medical History: Cirrhosis, Other History: Other Psycho-Social History: Anxiety, Depression Female Reproductive Disorders: No Pertinent History Other Medical History: Chronic back pain. Neuropathy - Past Surgical History Past Surgical History: Yes Neuro Surgical History: No Pertinent History Cardiac: Cardiac Catheterization Respiratory: No Pertinent History Gastrointestinal: Cholecystectomy Genitourinary: No Pertinent History Musculoskeletal: Orthopedic Surgery Female Surgical History: Section, Hysterectomy Other Surgical History: cyst removed from ovaries, spleen inflammation, BUTCH, burnt nerves in spine - Social History Smoking Status: Current every day smoker How long have you smoked: 45 years Exposure to second hand smoke: Yes Drug Use: none Patient Lives Alone: No - Nursing Vital Signs Nursing Vital Signs: Initial Vital Signs Temperature 99.7 F 04/04/23 10:57 Pulse Rate 109 H 04/04/23 10:57 Blood Pressure 118/68 04/04/23 10:57 O2 Sat by Pulse Oximetry 98 04/04/23 10:57 Pain Scale Pain Intensity 0 - Physical Exam General Appearance: no apparent distress, alert, anxiety, cachetic Eye Exam: PERRL/EOMI, eyes nml inspection Ears, Nose, Throat Exam: dry mucous membranes Neck Exam: normal inspection, non-tender, supple, full range of motion Respiratory Exam: normal breath sounds, lungs clear, No chest tenderness, No respiratory distress Cardiovascular Exam: normal peripheral pulses, tachycardia (Mild) Gastrointestinal/Abdomen Exam: soft, normal bowel sounds, No tenderness Pelvic Exam: not done Rectal Exam: not done Back Exam: normal inspection, normal range of motion, No CVA tenderness, No vertebral tenderness Extremity Exam: normal inspection, normal range of motion, pelvis stable Neurologic Exam: alert, oriented x 3, cooperative, pyrotechnic mixer II-XII nml as tested, normal mood/affect, nml cerebellar function, nml station & gait, sensation nml Skin Exam: normal color, warm, dry Lymphatic Exam: No adenopathy SpO2 Interpretation: normal O2 Delivery: Room Air - Course Nursing assessment & vital signs reviewed: Yes Ordered Tests: Active Orders 24 hr Category Date Time Status Clean Catch Urine Specimen STAT Care 04/04/23 11:22 Active IV Insertion STAT Care 04/04/23 11:22 Active ABDOMEN AND PELVIS W/0 CONTRAS [CT] Stat Exams 04/04/23 11:22 Completed AMYLASE Stat Lab 04/04/23 11:40 Completed BMP Stat Lab 04/04/23 15:10 Completed CBC W DIFF Stat Lab 04/04/23 11:40 Completed CBC W DIFF Stat Lab 04/04/23 15:10 Completed CMP Stat Lab 04/04/23 11:40 Completed ETHYL ALCOHOL Stat Lab 04/04/23 11:40 Completed LIPASE Stat Lab 04/04/23 11:40 Completed Lactic Acid Stat Lab 04/04/23 11:22 Completed Lactic Acid Stat Lab 04/04/23 13:43 Completed PT INR [PROTIME WITH INR] Stat Lab 04/04/23 11:40 Completed UA W/RFX UR CULTURE Stat Lab 04/04/23 11:48 Completed Urine Triage Profile Stat Lab 04/04/23 11:48 Completed Medication Summary Generic Name Dose Route Start Last Admin Trade Name Freq PRN Reason Stop Dose Admin Sodium Chloride 1,000 mls @ 250 mls/hr 04/04/23 16:00 04/04/23 16:10 Sodium Chloride 0.9% 1000 Ml IV 05/04/23 15:59 250 mls/hr .Q4H MYA Administration Discontinued Medications Generic Name Dose Route Start Last Admin Trade Name Maegan PRN Reason Stop Dose Admin Sodium Chloride 1,000 mls @ 999 mls/hr 04/04/23 11:22 04/04/23 12:58 Sodium Chloride 0.9% 1000 Ml IV 04/04/23 12:22 Infused .Q1H1M STA Infusion Sodium Chloride Confirm 04/04/23 11:43 Sodium Chloride 0.9% 1000 Ml Administered 04/04/23 11:44 Dose 1,000 mls @ ud .ROUTE .STK-MED ONE Sodium Chloride 1,000 mls @ 999 mls/hr 04/04/23 12:54 04/04/23 14:34 Sodium Chloride 0.9% 1000 Ml IV 04/04/23 13:54 Infused .Q1H1M STA Infusion Sodium Chloride Confirm 04/04/23 13:05 Sodium Chloride 0.9% 1000 Ml Administered 04/04/23 13:06 Dose 1,000 mls @ ud .ROUTE .STK-MED ONE Ondansetron HCl 4 mg 04/04/23 11:22 04/04/23 11:44 Ondansetron Hcl 4 Mg/2 Ml Vial IV 04/04/23 11:23 4 mg STAT ONE Administration Ondansetron HCl Confirm 04/04/23 11:43 Ondansetron Hcl 4 Mg/2 Ml Vial Administered 04/04/23 11:44 Dose 4 mg .ROUTE .STK-MED ONE Pantoprazole Sodium 40 mg 04/04/23 11:22 04/04/23 11:44 Pantoprazole 40 Mg Vial IV 04/04/23 11:23 40 mg STAT ONE Administration Pantoprazole Sodium Confirm 04/04/23 11:43 Pantoprazole 40 Mg Vial Administered 04/04/23 11:44 Dose 40 mg IV .STK-MED ONE Lab/Rad Data: Laboratory Result Diagrams 04/04/23 15:10 04/04/23 15:10 Laboratory Results 04/04/23 04/04/23 04/04/23 Range/Units 15:10 15:10 13:43 WBC 10.3 (4.0-10.5) x10^3/uL RBC 2.95 L (4.1-5.4) x10^6/uL Hgb 8.9 L (12.0-16.0) g/dL Hct 28.2 L (35-47) % MCV 95.6 (78-100) fL MCH 30.2 (26-32) pg MCHC 31.6 L (32-36) g/dL RDW 16.6 H (11.5-14.0) % Plt Count 119 L (150-450) x10^3/uL MPV 10.2 (7.5-11.0) fL Gran % 79.2 H (36.0-66.0) % Immature Gran % (Auto) 0.4 (0.00-0.4) % Nucleat RBC Rel Count 0.0 (0.00-0.1) % Eos # (Auto) 0 (0-0.5) x10^3/uL Immature Gran # (Auto) 0.04 H (0.00-0.03) x10^3u/L Absolute Lymphs (auto) 1.33 (1.0-4.6) x10^3/uL Absolute Monos (auto) 0.76 (0.0-1.3) x10^3/uL Absolute Nucleated RBC 0.00 (0.00-0.01) x10^3u/L Lymphocytes % 12.9 L (24.0-44.0) % Monocytes % 7.4 (0.0-12.0) % Eosinophils % 0.0 (0.00-5.0) % Basophils % 0.1 (0.0-0.4) % Absolute Granulocytes 8.20 H (1.4-6.9) x10^3/uL Basophils # 0.01 (0-0.4) x10^3/uL PT (9.4-12.5) SECONDS INR (0.8-3.0) Sodium 138 (137-145) mmol/L Potassium 4.4 (3.5-5.1) mmol/L Chloride 104 (98-107) mmol/L Carbon Dioxide 15 L* (22-30) mmol/L Anion Gap 22.7 H (5-15) MEQ/L BUN 44 H (7-17) mg/dL Creatinine 1.00 (0.52-1.04) mg/dL Estimated GFR 59.7 ML/MIN Glucose 100 (74-106) mg/dL Lactic Acid 6.8 H (0.4-2.0) Calcium 8.4 (8.4-10.2) mg/dL Total Bilirubin (0.2-1.3) mg/dL AST (14-36) U/L ALT (0-35) U/L Alkaline Phosphatase (38-126) U/L Serum Total Protein (6.3-8.2) g/dL Albumin (3.5-5.0) g/dL Amylase (30-110) U/L Lipase (23-300) U/L Urine Color (Yellow) Urine Appearance (Clear) Urine pH (4.6-8.0) Ur Specific [place] (1.005-1.030) Urine Protein (Negative) Urine Glucose (UA) (Negative) mg/dL Urine Ketones (Negative) Urine Blood (Negative) Urine Nitrite (Negative) Urine Bilirubin (Negative) Urine Urobilinogen (0.2) mg/dL Ur Leukocyte Esterase (Negative) U Hyaline Cast (Auto) (0-2) /LPF Urine Microscopic RBC (0-5) /HPF Urine Microscopic WBC (0-5) /HPF Ur Epithelial Cells (None Seen) /HPF Urine Bacteria (None Seen) /HPF Urine Culture Reflexed (NO) Urine Opiates Level (NEGATIVE) Ur Methadone (NEGATIVE) Urine Barbiturates (NEGATIVE) Ur Phencyclidine (PCP) (NEGATIVE) Urine Amphetamine (NEGATIVE) U Benzodiazepine Level (NEGATIVE) Urine Cocaine (NEGATIVE) Urine Marijuana (THC) (NEGATIVE) Ethyl Alcohol (0-10) mg/dL 04/04/23 04/04/23 04/04/23 Range/Units 11:48 11:48 11:40 WBC (4.0-10.5) x10^3/uL RBC (4.1-5.4) x10^6/uL Hgb (12.0-16.0) g/dL Hct (35-47) % MCV (78-100) fL MCH (26-32) pg MCHC (32-36) g/dL RDW (11.5-14.0) % Plt Count (150-450) x10^3/uL MPV (7.5-11.0) fL Gran % (36.0-66.0) % Immature Gran % (Auto) (0.00-0.4) % Nucleat RBC Rel Count (0.00-0.1) % Eos # (Auto) (0-0.5) x10^3/uL Immature Gran # (Auto) (0.00-0.03) x10^3u/L Absolute Lymphs (auto) (1.0-4.6) x10^3/uL Absolute Monos (auto) (0.0-1.3) x10^3/uL Absolute Nucleated RBC (0.00-0.01) x10^3u/L Lymphocytes % (24.0-44.0) % Monocytes % (0.0-12.0) % Eosinophils % (0.00-5.0) % Basophils % (0.0-0.4) % Absolute Granulocytes (1.4-6.9) x10^3/uL Basophils # (0-0.4) x10^3/uL PT 12.9 H (9.4-12.5) SECONDS INR 1.20 (0.8-3.0) Sodium (137-145) mmol/L Potassium (3.5-5.1) mmol/L Chloride (98-107) mmol/L Carbon Dioxide (22-30) mmol/L Anion Gap (5-15) MEQ/L BUN (7-17) mg/dL Creatinine (0.52-1.04) mg/dL Estimated GFR ML/MIN Glucose (74-106) mg/dL Lactic Acid (0.4-2.0) Calcium (8.4-10.2) mg/dL Total Bilirubin (0.2-1.3) mg/dL AST (14-36) U/L ALT (0-35) U/L Alkaline Phosphatase (38-126) U/L Serum Total Protein (6.3-8.2) g/dL Albumin (3.5-5.0) g/dL Amylase (30-110) U/L Lipase (23-300) U/L Urine Color Yellow (Yellow) Urine Appearance Clear (Clear) Urine pH 5.5 (4.6-8.0) Ur Specific [place] 1.015 (1.005-1.030) Urine Protein Negative (Negative) Urine Glucose (UA) 500 A (Negative) mg/dL Urine Ketones Negative (Negative) Urine Blood Small A (Negative) Urine Nitrite Negative (Negative) Urine Bilirubin Negative (Negative) Urine Urobilinogen 0.2 (0.2) mg/dL Ur Leukocyte Esterase Trace A (Negative) U Hyaline Cast (Auto) NONE SEEN (0-2) /LPF Urine Microscopic RBC 0-2 (0-5) /HPF Urine Microscopic WBC 6-10 A (0-5) /HPF Ur Epithelial Cells Rare (None Seen) /HPF Urine Bacteria None Seen (None Seen) /HPF Urine Culture Reflexed NO (NO) Urine Opiates Level NEGATIVE (NEGATIVE) Ur Methadone NEGATIVE (NEGATIVE) Urine Barbiturates NEGATIVE (NEGATIVE) Ur Phencyclidine (PCP) NEGATIVE (NEGATIVE) Urine Amphetamine NEGATIVE (NEGATIVE) U Benzodiazepine Level NEGATIVE (NEGATIVE) Urine Cocaine NEGATIVE (NEGATIVE) Urine Marijuana (THC) NEGATIVE (NEGATIVE) Ethyl Alcohol (0-10) mg/dL 04/04/23 04/04/23 04/04/23 Range/Units 11:40 11:40 11:22 WBC 13.8 H (4.0-10.5) x10^3/uL RBC 3.04 L (4.1-5.4) x10^6/uL Hgb 9.3 L (12.0-16.0) g/dL Hct 28.3 L (35-47) % MCV 93.1 (78-100) fL MCH 30.6 (26-32) pg MCHC 32.9 (32-36) g/dL RDW 16.6 H (11.5-14.0) % Plt Count 169 (150-450) x10^3/uL MPV 10.5 (7.5-11.0) fL Gran % 84.7 H (36.0-66.0) % Immature Gran % (Auto) 0.4 (0.00-0.4) % Nucleat RBC Rel Count 0.0 (0.00-0.1) % Eos # (Auto) 0 (0-0.5) x10^3/uL Immature Gran # (Auto) 0.05 H (0.00-0.03) x10^3u/L Absolute Lymphs (auto) 1.19 (1.0-4.6) x10^3/uL Absolute Monos (auto) 0.86 (0.0-1.3) x10^3/uL Absolute Nucleated RBC 0.00 (0.00-0.01) x10^3u/L Lymphocytes % 8.6 L (24.0-44.0) % Monocytes % 6.2 (0.0-12.0) % Eosinophils % 0.0 (0.00-5.0) % Basophils % 0.1 (0.0-0.4) % Absolute Granulocytes 11.69 H (1.4-6.9) x10^3/uL Basophils # 0.01 (0-0.4) x10^3/uL PT (9.4-12.5) SECONDS INR (0.8-3.0) Sodium 137 (137-145) mmol/L Potassium 5.0 (3.5-5.1) mmol/L Chloride 101 (98-107) mmol/L Carbon Dioxide 12 L* (22-30) mmol/L Anion Gap 29.3 H (5-15) MEQ/L BUN 43 H (7-17) mg/dL Creatinine 1.01 (0.52-1.04) mg/dL Estimated GFR 59.0 ML/MIN Glucose 122 H (74-106) mg/dL Lactic Acid 11.1 H (0.4-2.0) Calcium 9.1 (8.4-10.2) mg/dL Total Bilirubin 1.30 (0.2-1.3) mg/dL AST 52 H (14-36) U/L ALT 46 H (0-35) U/L Alkaline Phosphatase 76 (38-126) U/L Serum Total Protein 8.3 H (6.3-8.2) g/dL Albumin 4.3 (3.5-5.0) g/dL Amylase 83 (30-110) U/L Lipase 70 (23-300) U/L Urine Color (Yellow) Urine Appearance (Clear) Urine pH (4.6-8.0) Ur Specific [place] (1.005-1.030) Urine Protein (Negative) Urine Glucose (UA) (Negative) mg/dL Urine Ketones (Negative) Urine Blood (Negative) Urine Nitrite (Negative) Urine Bilirubin (Negative) Urine Urobilinogen (0.2) mg/dL Ur Leukocyte Esterase (Negative) U Hyaline Cast (Auto) (0-2) /LPF Urine Microscopic RBC (0-5) /HPF Urine Microscopic WBC (0-5) /HPF Ur Epithelial Cells (None Seen) /HPF Urine Bacteria (None Seen) /HPF Urine Culture Reflexed (NO) Urine Opiates Level (NEGATIVE) Ur Methadone (NEGATIVE) Urine Barbiturates (NEGATIVE) Ur Phencyclidine (PCP) (NEGATIVE) Urine Amphetamine (NEGATIVE) U Benzodiazepine Level (NEGATIVE) Urine Cocaine (NEGATIVE) Urine Marijuana (THC) (NEGATIVE) Ethyl Alcohol < 10 (0-10) mg/dL - Progress Progress: improved, re-examined Progress Note: 04/04/23 15:15 This patient's medical issue is 1 of high complexity. Level complexity in the work-up performed based on review of the patient's past medical history, review of the patient's medication list, review of the patient's drug allergy list, history of present illness and physical findings on examination. On further discussion with the patient, she actually does have a GI specialist that she sees for her cirrhosis. She was unaware that this was a GI specialist following her. She has an appointment to see him on 04/14/2023. We are still waiting for the CAT scan of the abdomen pelvis results. Apparently, per TM and radiology, there was an issue with transmission of the CT scan to the radiologist who is reading the films. We will place another call to radiology department. I want to reassess the patient's lactic acid level and hemoglobin level once the patient has received 2 L of normal saline solution. This will help me determine whether or not the patient can follow-up as an outpatient or needs to be transferred to her GI specialist in [place]. 04/04/23 15:30 CT scan of the abdomen pelvis without contrast just returned. The report was interpreted by the radiologist. There is high density material in the stomach could be blood and need further evaluation by multiphase bleed protocol CT (? variceal active bleed). There is evidence of chronic liver disease with features of portal hypertension including mild ascites and mesenteric congestion. Because of the findings on the CAT scan and her recent history of bleeding from at least 3 orifices, severely elevated lactic acid and elevated anion gap and a significant drop in her hemoglobin in less than 2 months, we will contact the patient's director of psychology/paint spray tender out of in [place] to discuss the issue of transferring the patient. 04/04/23 16:10 I did speak with Dr. Danielson, GI/hepatology out of [facility] as well as hospitalist Dr. Hroan. I reviewed the patient history, work-up performed with the results, intervention response with them. Because the patient's lactic acid is still high, the patient will need to be placed in the intensive care unit and therefore, I need to speak with an intensive care physician. That physician's name was reported to me to be Dr. Knapp. I am awaiting that call back. 04/04/23 16:[address] Knapp the [facility] intensive care physician who is excepting this patient in transfer. I reviewed the patient history, physical findings, work-up performed, results of the work-up and the response to our intervention. The hospital transfer center will be calling us back with a bed assignment. Counseled pt/family regarding: lab results, diagnosis, rad results Medical Desision Making - Independent Historian Additional History obtained from: Relative/friend - Diagnostic Testing Diagnostic test were ordered, analyzed, and reviewed by me: Yes Radiological Interpretation: Reviewed by me, Teleradiologist Report - Risk of complications The pt has a high risk of morbidity or mortality based on: Decision regarding hospitilization or escalation of hosp level of care - Departure Departure Disposition: Transfer Clinical Impression: Hematemesis, Hematochezia, Cirrhosis, Lactic acidemia, Upper GI bleed Condition: Serious Critical Care Time: Yes Critical Care Time(excluding separately billable procedures): Critical 30-74 mins (45 minutes) Referrals: NIKOLAS NESBITT MD [Primary Care Provider] - Follow up/PCP as directed
[2023-04-04] MEDS ORDERED: Zofran 4 MG/2 ML VIAL IV ONE (11:22)
[2023-04-04] MEDS ORDERED: PROTONIX 40 MG IV IV ONE ×2 (11:22→11:43)
[2023-04-04] MEDS ORDERED: Sodium Chloride 0.9% 1000 ML 1,000 ML IV STA ×2 (11:22→12:54)
[2023-04-04] MEDS ORDERED: Zofran 4 MG/2 ML VIAL ONE (11:43)
[2023-04-04] MEDS ORDERED: Sodium Chloride 0.9% 1000 ML 1,000 ML ONE ×3 (11:43→16:08)
[2023-04-04 11:59] LABS: Absolute Neutrophil Ct (ANC) 11.69 x10^3/uL (1.4-6.9); BASOPHIL % 0.1 % (0.0-0.4); Basophil (Absolute #) 0.01 x10^3/uL (0-0.4); Eosinophil (Absolute #) 0 x10^3/uL (0-0.5); Hematocrit 28.3 % (35-47); Hemoglobin 9.3 g/dL (12.0-16.0); IMMATURE GRAN # 0.05 x10^3u/L (0.00-0.03); IMMATURE GRAN % 0.4 % (0.00-0.4); Lymphocyte (Absolute #) 1.19 x10^3/uL (1.0-4.6); Lymphocytes % 8.6 % (24.0-44.0); Mean Cell Volume 93.1 fL (78-100); Mean Corpuscular Hemoglobin 30.6 pg (26-32); Mean Corpuscular Hgb Concent. 32.9 g/dL (32-36); Mean Platelet Volume 10.5 fL (7.5-11.0); Monocyte (Absolute #) 0.86 x10^3/uL (0.0-1.3); Monocytes % 6.2 % (0.0-12.0); Neutrophil % 84.7 % (36.0-66.0); Platelet Count 169 x10^3/uL (150-450); Red Blood Count 3.04 x10^6/uL (4.1-5.4); Red Cell Distribution Width 16.6 % (11.5-14.0); White Blood Count 13.8 x10^3/uL (4.0-10.5)
[2023-04-04 12:10] LABS: INR 1.2 (0.8-3.0); PROTIME 12.9 SECONDS (9.4-12.5)
[2023-04-04 12:13] LABS: ADD URINE CULTURE? NO (NO); Appearance Clear (Clear); Bacteria None Seen /HPF (None Seen); Bilirubin Negative (Negative); Blood Small (Negative); Epithelial Cells Rare /HPF (None Seen); Glucose, Urine 500 mg/dL (Negative); Hyaline Casts NONE SEEN /LPF (0-2); Ketones Negative (Negative); Leukocyte Esterase Trace (Negative); Nitrite Negative (Negative); Ph 5.5 (4.6-8.0); Protein,Urine Dip Negative (Negative); RBC 0-2 /HPF (0-5); Specific Gravity 1.015 (1.005-1.030); Urobilinogen 0.2 mg/dL (0.2)
[2023-04-04 12:20] LABS: ALBUMIN 4.3 g/dL (3.5-5.0); ALKALINE PHOSPHATASE 76 U/L (38-126); AMYLASE 83 U/L (30-110); ANION GAP 29.3 MEQ/L (5-15); BLOOD UREA NITROGEN 43 mg/dL (7-17); CHLORIDE 101 mmol/L (98-107); Calcium 9.1 mg/dL (8.4-10.2); Creatinine 1 1.01 mg/dL (0.52-1.04); ETHYL ALCOHOL < 10 mg/dL (0-10); Glucose 122 mg/dL (74-106); LIPASE 70 U/L (23-300); SGOT/AST 52 U/L (14-36); SODIUM 137 mmol/L (137-145); Total Protein 8.3 g/dL (6.3-8.2)
[2023-04-04 12:31] LABS: SGPT/ALT 46 U/L (0-35)
[2023-04-04 12:34] LABS: Amphetamine,Urine NEGATIVE (NEGATIVE); Barbiturate,Urine NEGATIVE (NEGATIVE); Benzodiazepine,Urine NEGATIVE (NEGATIVE); Cocaine,Urine NEGATIVE (NEGATIVE); Methadone,Urine NEGATIVE (NEGATIVE); Opiate,Urine NEGATIVE (NEGATIVE); PCP,Urine NEGATIVE (NEGATIVE); THC,Urine NEGATIVE (NEGATIVE)
[2023-04-04 12:38] LABS: Carbon Dioxide 12 mmol/L (22-30)
[2023-04-04 15:19] LABS: BASOPHIL % 0.1 % (0.0-0.4); Basophil (Absolute #) 0.01 x10^3/uL (0-0.4); Eosinophil (Absolute #) 0 x10^3/uL (0-0.5); Hematocrit 28.2 % (35-47); Hemoglobin 8.9 g/dL (12.0-16.0); IMMATURE GRAN # 0.04 x10^3u/L (0.00-0.03); IMMATURE GRAN % 0.4 % (0.00-0.4); Lymphocyte (Absolute #) 1.33 x10^3/uL (1.0-4.6); Lymphocytes % 12.9 % (24.0-44.0); Mean Cell Volume 95.6 fL (78-100); Mean Corpuscular Hemoglobin 30.2 pg (26-32); Mean Corpuscular Hgb Concent. 31.6 g/dL (32-36); Mean Platelet Volume 10.2 fL (7.5-11.0); Monocyte (Absolute #) 0.76 x10^3/uL (0.0-1.3); Monocytes % 7.4 % (0.0-12.0); Neutrophil % 79.2 % (36.0-66.0); Platelet Count 119 x10^3/uL (150-450); Red Blood Count 2.95 x10^6/uL (4.1-5.4); Red Cell Distribution Width 16.6 % (11.5-14.0); White Blood Count 10.3 x10^3/uL (4.0-10.5)
--- NOTE | 2023-04-04 15:20 | XRAY ---
CLINICAL HISTORY:Hematemesis; hematochezia COMPARISON:None. TECHNIQUE:Multiplanar CT study of the abdomen and pelvis performed without contrast. FINDINGS: A mild amount of high-density material is noted in a partially distended stomach in view of the history this could represent the blood but cannot be characterized further on plain study. Mild perihepatic and pelvic ascites are noted with congestion of the mesentery. Inhomogenous attenuation of the liver parenchyma with undulating margins represents chronic liver parenchymal disease and needs further evaluation by contrast triphasic examination. No biliary tree dilatation is noted. The portal confluence appears dilated, the spleen appears mildly enlarged and few abdominal varices are noted this denotes portal hypertension. Cholecystectomy clips are noted. Multiple Bosniak I renal cysts were noted on the right side and mild parenchymal scarring was seen in the left kidney. The largest right renal cyst measures 4.9 x 5.2 cm. No stone or back pressure was seen in both kidneys. Pancreas and both adrenal glands appear unremarkable. Bowel loops and urinary bladder are unremarkable. No lymphadenopathy, no pneumoperitoneum, or vascular calcifications were noted. Lung bases appear grossly unremarkable. Body wall edema noted. In bone osteopenia, multilevel osteopenic compression collapse, and spinal degenerative changes were noted. IMPRESSION: Limited non-contrast study. High-density material in the stomach could be blood and need further evaluation by multiphase bleed protocol CT (? variceal active bleed). Chronic liver disease with features of portal hypertension including mild ascites and mesenteric congestion clinical correlation and further workup suggested including triphasic contrast CT/MRI examination. Right renal multiple simple cysts. Electronically Signed by: Jennifer Perez MD. 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
[2023-04-04 15:50] LABS: ANION GAP 22.7 MEQ/L (5-15); Calcium 8.4 mg/dL (8.4-10.2); EST GLOMERULAR FILTRATION RATE 59.7 ML/MIN; Potassium 4.4 mmol/L (3.5-5.1)
[2023-04-04] MEDS ORDERED: Sodium Chloride 0.9% 1000 ML 1,000 ML IV SCH (16:00)
[2023-04-04 17:12] VITALS: PULSE 94; O2SAT 99
[2023-04-04 17:23] VITALS: BP 111/66; TEMP 99
== END 2023-04-04 18:00 | disposition short-term general hospital (02) ==
LOC: ED 10:30
DX: K92.0 Hematemesis (principal); K92.1 Melena; K74.60 Unspecified cirrhosis of liver; E87.20 Acidosis, unspecified; K92.2 Gastrointestinal hemorrhage, unspecified; R53.1 Weakness; I10 Essential (primary) hypertension; E11.42 Type 2 diabetes mellitus with diabetic polyneuropathy; E78.5 Hyperlipidemia, unspecified; Z79.84 Long term (current) use of oral hypoglycemic drugs; Z79.891 Long term (current) use of opiate analgesic; Z79.899 Other long term (current) drug therapy; Z72.0 Tobacco use
CPT/HCPCS: 36415; 74176; 80048; 80053; 80307; 81001; 82077; 82150; 83605; 83690; 85025; 85610; 96374; 96375; 99284; 99291; J2405

== ENCOUNTER 2023-06-30 14:17 | Emergency (ER) | payer MEDICARE ==
[2023-06-30 14:38] VITALS: TEMP 97
[2023-06-30 15:19] LABS: Absolute Neutrophil Ct (ANC) 7.16 x10^3/uL (1.4-6.9); BASOPHIL % 0.1 % (0.0-0.4); Basophil (Absolute #) 0.01 x10^3/uL (0-0.4); Eosinophil % 0.1 % (0.00-5.0); Eosinophil (Absolute #) 0.01 x10^3/uL (0-0.5); Hematocrit 35.1 % (35-47); Hemoglobin 10.9 g/dL (12.0-16.0); IMMATURE GRAN # 0.03 x10^3u/L (0.00-0.03); IMMATURE GRAN % 0.4 % (0.00-0.4); Lymphocyte (Absolute #) 0.66 x10^3/uL (1.0-4.6); Lymphocytes % 7.9 % (24.0-44.0); Mean Cell Volume 80.1 fL (78-100); Mean Corpuscular Hemoglobin 24.9 pg (26-32); Mean Corpuscular Hgb Concent. 31.1 g/dL (32-36); Mean Platelet Volume 9.7 fL (7.5-11.0); Monocyte (Absolute #) 0.48 x10^3/uL (0.0-1.3); Monocytes % 5.7 % (0.0-12.0); Neutrophil % 85.8 % (36.0-66.0); Platelet Count 264 x10^3/uL (150-450); Red Blood Count 4.38 x10^6/uL (4.1-5.4); Red Cell Distribution Width 18.2 % (11.5-14.0); White Blood Count 8.4 x10^3/uL (4.0-10.5)
[2023-06-30 15:25] LABS: ALBUMIN 4.2 g/dL (3.5-5.0); ANION GAP 24.8 MEQ/L (5-15); BILIRUBIN,TOTAL 1.3 mg/dL (0.2-1.3); Calcium 10.1 mg/dL (8.4-10.2); Creatinine 1 2.99 mg/dL (0.52-1.04); EST GLOMERULAR FILTRATION RATE 17.1 ML/MIN; Total Protein 8.3 g/dL (6.3-8.2)
[2023-06-30 15:27] LABS: Appearance Cloudy (Clear); Bacteria Rare /HPF (None Seen); Bilirubin Negative (Negative); Blood Negative (Negative); Epithelial Cells Moderate /HPF (None Seen); Glucose, Urine Negative (Negative); Ketones Negative (Negative); Leukocyte Esterase Small (Negative); Nitrite Negative (Negative); Protein,Urine Dip 30 (Negative); Specific Gravity 1.015 (1.005-1.030)
[2023-06-30 15:31] LABS: Potassium 6.3 mmol/L (3.5-5.1)
[2023-06-30 15:33] LABS: ADD URINE CULTURE? YES (NO); Hyaline Casts 20-50 /LPF (0-2)
[2023-06-30] MEDS ORDERED: ROCEPHIN 2 Gm-D5w 50ML BAG** 2 G/50 ML IVPB IV STA (15:44)
--- NOTE | 2023-06-30 15:45 | ERPHSYRPT ---
- History of Present Illness Time Seen by Provider: 06/30/23 14:50 Source: patient Exam Limitations: no limitations Patient Subjective Stated Complaint: pt here for nasuea and some confusion at hime, she is not taking her lactolse at home.she is to have paracentsis 023 Triage Nursing Assessment: pt here for nausea,not earing well, and some confuson at home today, she alert, resp easy, skin w.d,p. abd large and distended, chronic pain to lower abd, slight edema to lower legs Physician History: 62-year-old female with a history of liver cirrhosis/hepatitis C, esophageal varices and ascites presents to our ED with family for evaluation of nausea and confusion. Symptoms started 2-3 days ago. Symptoms have gotten progressively worse. Family reports patient is due for paracentesis tomorrow. No trauma no f ever. No active abdominal pain. Symptoms are mild to moderate in intensity. No specific worsening or improving factors. Patient voices no other complaints or concerns at this time. Portions of this note were created with voice recognition technology. There may be grammatical, spelling, punctuation or sound alike errors Timing/Duration: day(s) (2 to 3 days) Severity: moderate Modifying Factors: Improves With: nothing Associated Symptoms: denies symptoms Allergies/Adverse Reactions: No Known Drug Allergies Allergy (Verified 06/30/23 14:27) Home Medications: Gabapentin 400 mg PO TID 11/07/16 [History] Metformin HCl [Glucophage] 1,000 mg PO BID 08/13/17 [History] Dapagliflozin Propanediol [Farxiga] 10 mg PO DAILY 05/10/20 [History] Quetiapine Fumarate 25 mg PO HS 05/10/20 [History] Potassium Chloride 1 tab PO DAILY 01/22/22 [History] Lactulose [Constulose] 10 gm PO UD 02/16/23 [History] Ferrous Sulfate [Ferosul] 325 mg PO BID 04/04/23 [History] Furosemide 40 mg PO DAILY 04/04/23 [History] Hydroxyzine HCl 25 mg [Atarax 25 mg] 25 mg PO BID 04/04/23 [History] Omeprazole 20 mg PO DAILY 04/04/23 [History] Ramipril [Altace] 10 mg PO DAILY 04/04/23 [History] Spironolactone 100 mg PO DAILY 04/04/23 [History] Oxycodone HCl [Oxycodone HCl ER] 10 mg PO BID 06/30/23 [History] [id number]/Sod Sulf,Bicarb,Cl/KCl [Gavilyte-G Solution] 1 ea DAILY 06/30/23 [History] Hx Tetanus, Diphtheria Vaccination/Date Given: Yes Hx Influenza Vaccination/Date Given: No Hx Pneumococcal Vaccination/Date Given: Yes Travel Risk - International Travel Have you traveled outside of the country in past 3 weeks: No - Coronavirus Screening Are you exhibiting any of the following symptoms?: No Close contact with a COVID-19 positive Pt in past 14-21 Days: No - Vaccine Status Have you recieved a Covid-19 vaccination: Yes 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 - Vaccination Dates Date of 2cond Vaccination (if applicable): 2020 - Review of Systems Constitutional: No Symptoms, No Fever, No Chills Eyes: No Symptoms Ears, Nose, & Throat: No Symptoms Respiratory: No Symptoms, No Cough, No Dyspnea Cardiac: No Symptoms, No Chest Pain, No Edema, No Syncope Abdominal/Gastrointestinal: No Symptoms, No Abdominal Pain, No Nausea, No Vomiting, No Diarrhea Genitourinary Symptoms: No Symptoms, No Dysuria Musculoskeletal: No Symptoms, No Back Pain, No Neck Pain Skin: No Symptoms, No Rash Neurological: No Symptoms, No Dizziness, No Focal Weakness, No Sensory Changes Psychological: No Symptoms Endocrine: No Symptoms Hematologic/Lymphatic: No Symptoms Immunological/Allergic: No Symptoms All Other Systems: Reviewed and Negative - Past Medical History Pertinent Past Medical History: Yes Neurological History: Other ENT History: No Pertinent History Cardiac History: High Cholesterol, Hypertension, Other Respiratory History: Sleep Apnea Endocrine Medical History: Diabetes Type II Musculoskeletal History: Degenerative Disk Disease, Other GI Medical History: Cirrhosis, Hepatitis, Other History: Other Psycho-Social History: Anxiety, Depression Female Reproductive Disorders: No Pertinent History Other Medical History: Chronic back pain,liver disease. Neuropathy - Past Surgical History Past Surgical History: Yes Neuro Surgical History: No Pertinent History Cardiac: Cardiac Catheterization Respiratory: No Pertinent History Gastrointestinal: Cholecystectomy Genitourinary: No Pertinent History Musculoskeletal: Orthopedic Surgery Female Surgical History: Section, Hysterectomy Other Surgical History: cyst removed from ovaries, spleen inflammation, BUTCH, burnt nerves in spine - Social History Smoking Status: Current every day smoker How long have you smoked: 40 years Exposure to second hand smoke: Yes Drug Use: none Patient Lives Alone: Yes - Nursing Vital Signs Nursing Vital Signs: Initial Vital Signs Temperature 97.0 F 06/30/23 14:30 Pulse Rate 88 06/30/23 14:30 Respiratory Rate 22 06/30/23 14:30 Blood Pressure 99/65 06/30/23 14:30 O2 Sat by Pulse Oximetry 100 06/30/23 14:30 Pain Scale Pain Intensity 5 - Physical Exam General Appearance: no apparent distress, alert Eye Exam: PERRL/EOMI, eyes nml inspection Ears, Nose, Throat Exam: normal ENT inspection, TMs normal, pharynx normal, moist mucous membranes Neck Exam: normal inspection, non-tender, supple, full range of motion Respiratory Exam: normal breath sounds, lungs clear, airway intact, No respiratory distress Cardiovascular Exam: regular rate/rhythm, normal heart sounds, normal peripheral pulses Gastrointestinal/Abdomen Exam: soft, normal bowel sounds, other (Distended abdomen with a positive fluid wave), No tenderness, No mass Back Exam: normal inspection, normal range of motion, No CVA tenderness, No vertebral tenderness Extremity Exam: normal inspection, normal range of motion, pelvis stable Neurologic Exam: alert, oriented x 3, cooperative, normal mood/affect, nml cerebellar function, nml station & gait, sensation nml, No motor deficits Skin Exam: normal color, warm, dry, No rash Lymphatic Exam: No adenopathy SpO2 Interpretation: normal SpO2: 99 O2 Delivery: Room Air - Course Nursing assessment & vital signs reviewed: Yes - CT Exams Abdomen/Pelvis CT Interpretation: Tele-radiologist Report (Ascites, bilateral renal cyst, nephrolithiasis, compression changes of the spine) Ordered Tests: Active Orders 24 hr Category Date Time Status IV Insertion STAT Care 06/30/23 15:12 Completed ABDOMEN AND PELVIS W/0 CONTRAS [CT] Stat Exams 06/30/23 15:13 Completed CBC W DIFF Stat Lab 06/30/23 15:17 Completed CMP Stat Lab 06/30/23 15:17 Completed CULTURE,URINE Stat Lab 06/30/23 15:18 Received LIPASE Stat Lab 06/30/23 15:17 Completed TROPONIN Q4H Lab 06/30/23 15:17 Completed TROPONIN Q4H Lab 06/30/23 19:15 Ordered TROPONIN Q4H Lab 06/30/23 23:15 Ordered UA W/RFX UR CULTURE Stat Lab 06/30/23 15:18 Completed Respiratory Therapy Assessment DAILY RT 06/30/23 16:29 Completed Medication Summary Discontinued Medications Generic Name Dose Route Start Last Admin Trade Name Maegan PRN Reason Stop Dose Admin Albuterol Sulfate 2.5 mg 06/30/23 15:49 06/30/23 16:27 Albuterol Sulfate 2.5 Mg/3 Ml Neb IH 06/30/23 15:50 2.5 mg STAT ONE Administration Albuterol Sulfate Confirm 06/30/23 16:25 Albuterol Sulfate 2.5 Mg/3 Ml Neb Administered 06/30/23 16:26 Dose 2.5 mg IH .STK-MED ONE Calcium Gluconate 1,000 mg 06/30/23 15:47 06/30/23 16:41 Calcium Gluconate 1000 Mg/10 Ml Vial IV 06/30/23 15:48 1,000 mg STAT ONE Administration Calcium Gluconate Confirm 06/30/23 16:19 Calcium Gluconate 1000 Mg/10 Ml Vial Administered 06/30/23 16:20 Dose 1,000 mg IV .STK-MED ONE Dextrose 50 ml 06/30/23 15:52 06/30/23 16:33 Dextrose 50%-Water 50 Ml Abboject IV 06/30/23 15:53 50 ml STAT ONE Administration Dextrose Confirm 06/30/23 16:21 Dextrose 50%-Water 50 Ml Abboject Administered 06/30/23 16:22 Dose 50 ml IV .STK-MED ONE Furosemide 20 mg 06/30/23 15:55 06/30/23 16:37 Furosemide 20 Mg/Vial IV 06/30/23 15:56 20 mg ONCE STA Administration Furosemide Confirm 06/30/23 16:21 Furosemide 20 Mg/Vial Administered 06/30/23 16:22 Dose 20 mg .ROUTE .STK-MED ONE Ceftriaxone Sodium/Dextrose 2 g in 50 mls @ 100 mls/hr 06/30/23 15:44 06/30/23 17:35 Rocephin 2 Gm-D5w 50ml Bag IV 06/30/23 16:13 Infused STAT STA Infusion Dextrose/Sodium Chloride 1,000 mls @ 100 mls/hr 06/30/23 16:00 06/30/23 16:54 Dextrose 5% -0.45 Nacl 1000 Ml IV 07/30/23 15:59 100 mls/hr .Q10H MYA Administration Ceftriaxone Sodium/Dextrose Confirm 06/30/23 16:21 Rocephin 2 Gm-D5w 50ml Bag Administered 06/30/23 16:22 Dose 2 g in 50 mls @ ud IV .STK-MED ONE Sodium Chloride 500 mls @ 500 mls/hr 06/30/23 17:24 06/30/23 17:51 Sodium Chloride 0.9% 500 Ml IV 06/30/23 18:23 500 mls/hr .Q1H ONE Administration Sodium Chloride Confirm 06/30/23 17:47 Sodium Chloride 0.9% 500 Ml Administered 06/30/23 17:48 Dose 500 mls @ ud IV .STK-MED ONE Dextrose/Sodium Chloride Confirm 06/30/23 16:21 Dextrose 5% -0.45 Nacl 1000 Ml Administered 06/30/23 16:22 Dose 1,000 mls @ ud IV .STK-MED ONE Insulin Human Regular 5 unit 06/30/23 15:53 06/30/23 16:31 Insulin Regular, Human 1 Unit IV 06/30/23 15:54 5 unit STAT ONE Administration Insulin Human Regular Confirm 06/30/23 16:21 Insulin Regular, Human 1 Unit Administered 06/30/23 16:22 Dose 5 unit .ROUTE .STK-MED ONE Lab/Rad Data: Laboratory Result Diagrams 06/30/23 15:17 06/30/23 15:17 Laboratory Results 06/30/23 06/30/23 06/30/23 Range/Units 15:50 15:18 15:17 WBC (4.0-10.5) x10^3/uL RBC (4.1-5.4) x10^6/uL Hgb (12.0-16.0) g/dL Hct (35-47) % MCV (78-100) fL MCH (26-32) pg MCHC (32-36) g/dL RDW (11.5-14.0) % Plt Count (150-450) x10^3/uL MPV (7.5-11.0) fL Gran % (36.0-66.0) % Immature Gran % (Auto) (0.00-0.4) % Nucleat RBC Rel Count (0.00-0.1) % Eos # (Auto) (0-0.5) x10^3/uL Immature Gran # (Auto) (0.00-0.03) x10^3u/L Absolute Lymphs (auto) (1.0-4.6) x10^3/uL Absolute Monos (auto) (0.0-1.3) x10^3/uL Absolute Nucleated RBC (0.00-0.01) x10^3u/L Lymphocytes % (24.0-44.0) % Monocytes % (0.0-12.0) % Eosinophils % (0.00-5.0) % Basophils % (0.0-0.4) % Absolute Granulocytes (1.4-6.9) x10^3/uL Basophils # (0-0.4) x10^3/uL Sodium (137-145) mmol/L Potassium (3.5-5.1) mmol/L Chloride (98-107) mmol/L Carbon Dioxide (22-30) mmol/L Anion Gap (5-15) MEQ/L BUN (7-17) mg/dL Creatinine (0.52-1.04) mg/dL Estimated GFR ML/MIN Glucose (74-106) mg/dL Calcium (8.4-10.2) mg/dL Total Bilirubin (0.2-1.3) mg/dL AST (14-36) U/L ALT (0-35) U/L Alkaline Phosphatase (38-126) U/L Ammonia 37 H (9-30) umol/L Troponin I < 0.012 (0.000-0.034) ng/mL Serum Total Protein (6.3-8.2) g/dL Albumin (3.5-5.0) g/dL Lipase (23-300) U/L Urine Color Yellow (Yellow) Urine Appearance Cloudy A (Clear) Urine pH 5.0 (4.6-8.0) Ur Specific Prue 1.015 (1.005-1.030) Urine Protein 30 (Negative) Urine Glucose (UA) Negative (Negative) mg/dL Urine Ketones Negative (Negative) Urine Blood Negative (Negative) Urine Nitrite Negative (Negative) Urine Bilirubin Negative (Negative) Urine Urobilinogen 1.0 A (0.2) mg/dL Ur Leukocyte Esterase Small A (Negative) U Hyaline Cast (Auto) 20-50 (0-2) /LPF Urine Microscopic RBC 3-5 (0-5) /HPF Urine Microscopic WBC 11-20 A (0-5) /HPF Ur Epithelial Cells Moderate A (None Seen) /HPF Urine Bacteria Rare A (None Seen) /HPF Urine Culture Reflexed YES (NO) 06/30/23 06/30/23 Range/Units 15:17 15:17 WBC 8.4 (4.0-10.5) x10^3/uL RBC 4.38 (4.1-5.4) x10^6/uL Hgb 10.9 L (12.0-16.0) g/dL Hct 35.1 (35-47) % MCV 80.1 (78-100) fL MCH 24.9 L (26-32) pg MCHC 31.1 L (32-36) g/dL RDW 18.2 H (11.5-14.0) % Plt Count 264 (150-450) x10^3/uL MPV 9.7 (7.5-11.0) fL Gran % 85.8 H (36.0-66.0) % Immature Gran % (Auto) 0.4 (0.00-0.4) % Nucleat RBC Rel Count 0.0 (0.00-0.1) % Eos # (Auto) 0.01 (0-0.5) x10^3/uL Immature Gran # (Auto) 0.03 (0.00-0.03) x10^3u/L Absolute Lymphs (auto) 0.66 L (1.0-4.6) x10^3/uL Absolute Monos (auto) 0.48 (0.0-1.3) x10^3/uL Absolute Nucleated RBC 0.00 (0.00-0.01) x10^3u/L Lymphocytes % 7.9 L (24.0-44.0) % Monocytes % 5.7 (0.0-12.0) % Eosinophils % 0.1 (0.00-5.0) % Basophils % 0.1 (0.0-0.4) % Absolute Granulocytes 7.16 H (1.4-6.9) x10^3/uL Basophils # 0.01 (0-0.4) x10^3/uL Sodium 131 L (137-145) mmol/L Potassium 6.3 H* (3.5-5.1) mmol/L Chloride 99 (98-107) mmol/L Carbon Dioxide 15 L* (22-30) mmol/L Anion Gap 24.8 H (5-15) MEQ/L BUN 65 H (7-17) mg/dL Creatinine 2.99 H (0.52-1.04) mg/dL Estimated GFR 17.1 ML/MIN Glucose 164 H (74-106) mg/dL Calcium 10.1 (8.4-10.2) mg/dL Total Bilirubin 1.30 (0.2-1.3) mg/dL AST 40 H (14-36) U/L ALT 25 (0-35) U/L Alkaline Phosphatase 72 (38-126) U/L Ammonia (9-30) umol/L Troponin I (0.000-0.034) ng/mL Serum Total Protein 8.3 H (6.3-8.2) g/dL Albumin 4.2 (3.5-5.0) g/dL Lipase 98 (23-300) U/L Urine Color (Yellow) Urine Appearance (Clear) Urine pH (4.6-8.0) Ur Specific Prue (1.005-1.030) Urine Protein (Negative) Urine Glucose (UA) (Negative) mg/dL Urine Ketones (Negative) Urine Blood (Negative) Urine Nitrite (Negative) Urine Bilirubin (Negative) Urine Urobilinogen (0.2) mg/dL Ur Leukocyte Esterase (Negative) U Hyaline Cast (Auto) (0-2) /LPF Urine Microscopic RBC (0-5) /HPF Urine Microscopic WBC (0-5) /HPF Ur Epithelial Cells (None Seen) /HPF Urine Bacteria (None Seen) /HPF Urine Culture Reflexed (NO) - Progress Progress: improved Progress Note: 06/30/23 17:[address] 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 who agrees to transfer however there are no beds currently available. We will likely try another hospitalist patient will need a paracentesis and a candy catcher to address the acute renal injury/hyperkalemia. I spoke to Dr. Prasad at 5:04 PM Case discussed with Dr. Godfrey ER physician at [facility] who accepts transfer at 5:28 PM. 06/30/23 17:29 Patient is 62-year-old female history of hepatitis C/liver cirrhosis presents to our ED for evaluation of confusion and nausea. Symptoms have been progressi vely worse. Family reports that patient has not been compliant with her lactulose. Patient is due for a paracentesis tomorrow. On physical exam patient has distended abdomen. Patient appears frail. Family reports patient has had significant weight loss over the past year. Weight loss is approx imately 100 pounds. No active pain. No chest pain or shortness of breath. No nausea vomiting diaphoresis. Test ordered including ammonia which is 37. CBC essentially unremarkable. CMP reveals a potassium of 6.3. BUN elevated at 65. Creatinine elevated at 2.99. These values are significant off patient's baseline. Lipase within normal limits. Troponin negative. Urinalysis significant for urinary tract infection. Patient received a dose of Rocephin in our ED. To treat patient's potassium she received calcium gluconate, dextrose, insulin glucose combination albuterol. Patient rehydrated with normal saline. Patient states she feels much better. Due to patient's significant abnormal kidney function she will require nephrology consultation. Patient transferred to higher level of care. Patient transferred to [facility] for further evaluation and treatment. Portions of this note were created with voice recognition technology. There may be grammatical, spelling, punctuation or sound alike errors Complexity of problems addressed is high. Severe exacerbation/condition of threat to bodily function Critical care time is 3 hours. Due to acute renal injury and hyperkalemia immediate action was required to prevent further deterioration Complex of data reviewed and analyzed is extensive. Test ordered test reviewed. Results analyzed and correlated clinically. Management discussed with special procedure tech from Dr. Prasad and ER physician at [facility] Dr. Godfrey. Risk of complication and or risk of morbidity/mortality of patient management is high. Patient requires hospitalization/transfer to higher level of care. Vital stable at time of discharge. Time spent to discharge patient is approximately 15 minutes. Plan of care established for shared decision making. Portions of this note were created with voice recognition technology. There may be grammatical, spelling, punctuation or sound alike errors 06/30/23 18:23 Counseled pt/family regarding: lab results, diagnosis, rad results - Departure Departure Disposition: Transfer Clinical Impression: Acute renal injury, Metabolic acidosis, Hyperkalemia, Urinary tract infection, Ascites, Confusion Condition: Stable Critical Care Time: Yes Critical Care Time(excluding separately billable procedures): Critical [id number] mins Referrals: NIKOLAS STALLWORTH MD [Primary Care Provider] - Follow up/PCP as directed
[2023-06-30] MEDS ORDERED: Calcium Gluconate 10% 1000 MG IV ONE ×2 (15:47→16:19)
[2023-06-30] MEDS ORDERED: PROVENTIL 2.5 MG/3 ML NEB IH ONE ×2 (15:49→16:25)
[2023-06-30] MEDS ORDERED: D50W 50 ml Abboject IV ONE ×2 (15:52→16:21)
[2023-06-30] MEDS ORDERED: HUMULIN R IV ONE (15:53)
[2023-06-30] MEDS ORDERED: Lasix 20 MG/2 ML IV STA (15:55)
[2023-06-30] MEDS ORDERED: Dextrose 5% -0.45 NaCl 1000 ML 1,000 ML IV SCH (16:00)
[2023-06-30] MEDS ORDERED: Dextrose 5% -0.45 NaCl 1000 ML 1,000 ML IV ONE (16:21)
[2023-06-30] MEDS ORDERED: Lasix 20 MG/2 ML ONE (16:21)
[2023-06-30] MEDS ORDERED: ROCEPHIN 2 Gm-D5w 50ML BAG** 2 G/50 ML IVPB IV ONE (16:21)
[2023-06-30] MEDS ORDERED: HUMULIN R ONE (16:21)
[2023-06-30 17:01] VITALS: PULSE 90; RESP 16
--- NOTE | 2023-06-30 17:16 | XRAY ---
CLINICAL HISTORY:pain COMPARISON:04/04/2023. TECHNIQUE:Multiplanar CT study of the abdomen and pelvis performed without contrast. FINDINGS: A high-density material is still noted in a partially distended stomach. Interval progression of the previously seen pelvi-abdominal ascites are noted. Still seen inhomogenous attenuation of the liver parenchyma with undulating margins represents chronic liver parenchymal disease. No biliary tree dilatation is noted. Still seen portal confluence dilatation, mild splenomegaly which indicate portal hypertension, yet further evaluation by the post-contrast study is advised. Cholecystectomy clips are noted. Few renal cysts were noted on the right kidney. The largest right renal cyst measures 4.9 x 5.2 cm. The left kidney is of average size. A tiny 2 mm stone is noted at the upper calyx of the right kidney without back pressure changes. No stone or back pressure was seen in the left kidney. Pancreas and both adrenal glands appear unremarkable. Bowel loops and urinary bladder are unremarkable. No lymphadenopathy. Vascular calcifications were noted. Appendix: is not visualized. Lung bases appear grossly unremarkable. Body wall edema noted. In bone osteopenia, multilevel compression collapse, and spinal degenerative changes were noted. IMPRESSION: Interval progression regarding the previoously seen ascites. Chronic liver disease with features of portal hypertension to be further evaluated by post contrast study. A tiny right renal non-obstructive stone. Right renal multiple simple cysts. In bone osteopenia, multilevel compression collapse, and spinal degenerative changes were still noted. Electronically Signed by: Jennifer Perez MD. (06/30/2023 17:12:35 EST)
[2023-06-30] MEDS ORDERED: Sodium Chloride 0.9% 500 ML 500 ML IV ONE ×2 (17:24→17:47)
[2023-06-30 18:11] VITALS: BP 98/48
[2023-06-30 18:29] VITALS: O2SAT 99
== END 2023-06-30 18:20 | disposition short-term general hospital (02) ==
LOC: ED 14:17
DX: N17.9 Acute kidney failure, unspecified (principal); E87.20 Acidosis, unspecified; E87.5 Hyperkalemia; N39.0 Urinary tract infection, site not specified; R18.8 Other ascites; R41.0 Disorientation, unspecified; R11.0 Nausea; E78.5 Hyperlipidemia, unspecified; I10 Essential (primary) hypertension; E11.9 Type 2 diabetes mellitus without complications; Z79.84 Long term (current) use of oral hypoglycemic drugs; Z79.891 Long term (current) use of opiate analgesic; Z79.899 Other long term (current) drug therapy; Z72.0 Tobacco use
CPT/HCPCS: 36000; 36415; 74176; 80053; 81001; 82140; 83690; 84484; 85025; 87086; 94640; 96360; 96361; 96365; 96374; 96375; 99285; 99291; 99292; J0612; J0696; J1815; J1940; J7609; A9270-GY

== ENCOUNTER 2023-07-19 22:22 | Emergency (ER) | payer MEDICARE ==
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
[2023-07-19 23:42] LABS: Absolute Neutrophil Ct (ANC) 4.49 x10^3/uL (1.4-6.9); BASOPHIL % 0.6 % (0.0-0.4); Basophil (Absolute #) 0.03 x10^3/uL (0-0.4); Eosinophil % 0.2 % (0.00-5.0); Eosinophil (Absolute #) 0.01 x10^3/uL (0-0.5); Hematocrit 26.1 % (35-47); Hemoglobin 7.9 g/dL (12.0-16.0); IMMATURE GRAN # 0.03 x10^3u/L (0.00-0.03); IMMATURE GRAN % 0.6 % (0.00-0.4); Lymphocytes % 7.5 % (24.0-44.0); Mean Cell Volume 86.1 fL (78-100); Mean Corpuscular Hemoglobin 26.1 pg (26-32); Mean Corpuscular Hgb Concent. 30.3 g/dL (32-36); Monocyte (Absolute #) 0.34 x10^3/uL (0.0-1.3); Monocytes % 6.4 % (0.0-12.0); Neutrophil % 84.7 % (36.0-66.0); Platelet Count 93 x10^3/uL (150-450); Red Blood Count 3.03 x10^6/uL (4.1-5.4); Red Cell Distribution Width 21.5 % (11.5-14.0); White Blood Count 5.3 x10^3/uL (4.0-10.5)
[2023-07-19 23:55] LABS: ANION GAP 14.4 MEQ/L (5-15); Calcium 8.5 mg/dL (8.4-10.2); Creatinine 1 1.48 mg/dL (0.52-1.04); EST GLOMERULAR FILTRATION RATE 39.6 ML/MIN; INR 1.14 (0.8-3.0); PROTIME 12.3 SECONDS (9.4-12.5); Potassium 3.9 mmol/L (3.5-5.1)
[2023-07-20 01:08] VITALS: O2SAT 100
[2023-07-20] MEDS ORDERED: Rocephin 1000 MG INJ IM ONE (01:39)
[2023-07-20] MEDS ORDERED: Rocephin 1000 MG INJ ONE (01:50)
[2023-07-20] MEDS ORDERED: XYLOCAINE 1% HCL 20 ML MDV ONE (01:50)
[2023-07-20 02:25] VITALS: BP 96/59; PULSE 72; RESP 15
--- NOTE | 2023-07-20 08:45 | XRAY ---
Indication: Ascites. Comparison: September 02, 2017 Portable chest hyperinflated with new hazy left base interstitial alveolar opacities. Remaining heart and lungs unremarkable. Bony thorax demonstrates osteopenia and mild degenerative changes. New remote appearing T12 fracture with 25-50% height loss.
--- NOTE | 2023-07-20 08:47 | XRAY ---
Indication: Bilateral lower extremity swelling/edema. Two-dimensional sonogram and color Doppler imaging of the major venous vessels of the left and right leg performed. Comparison: None Right posterior tibial vein demonstrates nonoccluding thrombi and noncompressibility. No thrombus seen in the remaining deep venous vessels of the left and right leg including greater saphenous vein. Patent veins demonstrate normal compressibility and normal venous waveforms. Impression: Nonoccluding DVT right posterior tibial vein. Left leg negative for DVT. Comment: Preliminary report was given.
== END 2023-07-20 02:35 | disposition home or self-care (01) ==
LOC: ED 22:22
DX: L03.116 Cellulitis of left lower limb (principal); I82.491 Acute embolism and thrombosis of other specified deep vein of right lower extremity; R60.0 Localized edema; R18.8 Other ascites; K74.60 Unspecified cirrhosis of liver; R21 Rash and other nonspecific skin eruption; E78.5 Hyperlipidemia, unspecified; I10 Essential (primary) hypertension; E11.9 Type 2 diabetes mellitus without complications; Z79.891 Long term (current) use of opiate analgesic; Z79.899 Other long term (current) drug therapy; Z72.0 Tobacco use
CPT/HCPCS: 36415; 71045; 80048; 85025; 85610; 93970; 96372; 99284; J0696

== ENCOUNTER 2023-08-06 02:06 | Emergency (ER) | payer MEDICARE ==
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
[2023-08-06] MEDS ORDERED: Sodium Chloride 0.9% 1000 ML 1,000 ML ONE ×2 (02:11→03:13)
[2023-08-06] MEDS ORDERED: Zofran 4 MG/2 ML VIAL IV ONE (02:16)
[2023-08-06] MEDS ORDERED: Zofran 4 MG/2 ML VIAL ONE (02:17)
[2023-08-06 02:46] LABS: INR 1.3 (0.8-3.0); PROTIME 13.9 SECONDS (9.4-12.5)
[2023-08-06 03:04] LABS: Absolute Neutrophil Ct (ANC) 5.05 x10^3/uL (1.4-6.9); BASOPHIL % 0.1 % (0.0-0.4); Basophil (Absolute #) 0.01 x10^3/uL (0-0.4); Eosinophil % 0.1 % (0.00-5.0); Eosinophil (Absolute #) 0.01 x10^3/uL (0-0.5); IMMATURE GRAN # 0.04 x10^3u/L (0.00-0.03); IMMATURE GRAN % 0.5 % (0.00-0.4); Lymphocyte (Absolute #) 1.39 x10^3/uL (1.0-4.6); Lymphocytes % 18.5 % (24.0-44.0); Mean Corpuscular Hemoglobin 26.2 pg (26-32); Mean Corpuscular Hgb Concent. 28.1 g/dL (32-36); Mean Platelet Volume 11.8 fL (7.5-11.0); Monocytes % 13.3 % (0.0-12.0); NUCLEATED RBC # 0.05 x10^3u/L (0.00-0.01); NUCLEATED RBC % 0.7 % (0.00-0.1); Neutrophil % 67.5 % (36.0-66.0); Platelet Count 218 x10^3/uL (150-450); Red Blood Count 1.72 x10^6/uL (4.1-5.4); Red Cell Distribution Width 19.3 % (11.5-14.0); White Blood Count 7.5 x10^3/uL (4.0-10.5)
[2023-08-06 03:05] LABS: ALBUMIN 2.7 g/dL (3.5-5.0); ANION GAP 21.2 MEQ/L (5-15); BILIRUBIN,TOTAL 1.1 mg/dL (0.2-1.3); Creatinine 1 2.33 mg/dL (0.52-1.04); EST GLOMERULAR FILTRATION RATE 22.9 ML/MIN; Total Protein 5.8 g/dL (6.3-8.2)
[2023-08-06 03:07] LABS: Hemoglobin 4.5 g/dL (12.0-16.0)
[2023-08-06 03:09] LABS: ABO TYPING O; Antibody Screen NEGATIVE (NEGATIVE); RH TYPING POSITIVE
[2023-08-06] MEDS ORDERED: Sodium Chloride 0.9% 500 ML 500 ML IV SCH (03:15)
[2023-08-06] MEDS ORDERED: Sodium Chloride 0.9% 500 ML 500 ML IV ONE (03:16)
[2023-08-06] MEDS ORDERED: Calcium Gluconate 10% 1000 MG IV ONE ×2 (03:16→03:33)
[2023-08-06 03:17] LABS: Potassium 7.2 mmol/L (3.5-5.1)
[2023-08-06] MEDS ORDERED: VELTASSA PO STA (03:19)
[2023-08-06] MEDS ORDERED: HUMULIN R IV ONE ×2 (03:20→06:00)
[2023-08-06] MEDS ORDERED: SODIUM BICARBONATE 50 MEQ/50 ML ABBOJECT IV ONE ×4 (03:21→06:36)
[2023-08-06 03:28] LABS: Slide Review 1 YES
[2023-08-06] MEDS ORDERED: HUMULIN R ONE ×2 (03:34→06:35)
[2023-08-06] MEDS ORDERED: VELTASSA PO ONE (03:35)
--- NOTE | 2023-08-06 03:45 | XRAY ---
CLINICAL HISTORY:ABD distention; rectal bleeding COMPARISON:06/30/2023 TECHNIQUE:CT scan of the abdomen and pelvis was performed without IV contrast. Coronal and sagittal reconstructive images were also obtained. FINDINGS: Progressive course regarding the amount of marked abdominopelvic ascites with smudged peritoneal and omental fat planes. A nasogastric tube is noted with its tip reaching the proximal jejunal loops. Cirrhotic liver changes are evident by undulant hepatic outline, prominent interlobar fissure hypertrophied caudate, and left hepatic lobes. It shows diffuse heterogeneous parenchymal attenuation. No dilated intra-hepatic biliary tracts. Cholecystectomy clips are noted. Mildly enlarged spleen showing homogenous parenchymal attenuation. Thickened left adrenal gland. The right adrenal, pancreas, and IVC are unremarkable. Both kidneys are of average size and shape with preserved parenchymal thickness. Right renal upper calyceal small (2 mm) calculus. No hydronephrosis. Right renal hypodense cortical cysts, the largest measures about 4.9 x 5.2 cm. Left renal single hypodense cortical cyst. Aortoiliac atheromatous calcifications. The urinary bladder shows no masses or diverticular outpouchings. Non-visualized uterus, likely surgically removed. Mild mural thickening of the jejunal loops, possibly congestive jejunopathy. Colonic fecal loading its noted. Otherwise, the ascending colon, the transverse colon, and the descending colon are unremarkable. The stomach is non-distended with no abnormality. The appendix is not visualized. No sizeable pathologically enlarged abdominal or pelvic lymph nodes. Subcutaneous edema of the pelviabdominal wall. Scanned osseous structures show L4 1st-degree degenerative spondylolisthesis. Thoracolumbar spondylosis with multilevel ventral wedging/compression of the thoracolumbar vertebral bodies. Scanned lung bases show bilateral basal atelectatic plates. IMPRESSION: 1. Progressive course regarding the abdomino-pelvic ascites with smudged peritoneal and omental fat planes. 2. The nasogastric tube is noted with its tip reaching the proximal jejunal loops. 3. The rest of the study shows a stationary course. Electronically Signed by: Jennifer Perez MD. (08/06/2023 03:40:56 EST)
--- NOTE | 2023-08-06 03:57 | XRAY ---
CLINICAL HISTORY:Confusion COMPARISON:Dated: 11/03/2022. TECHNIQUE:An axial non-contrast CT scan of the brain was performed without contrast administration. Coronal and sagittal reconstructions were also obtained and submitted for diagnostic interpretation. FINDINGS: Prominent ventricular system and extra-axial CSF spaces are suggestive of age-related involutional changes. The visualized brain parenchyma shows a normal appearance. No focal parenchymal abnormalities are demonstrated. Brunner-white matter differentiation is maintained. No midline shifts or deformity. No intracerebral or extra axial hematoma. Normal CT appearance of the posterior fossa structures namely the cerebellar hemispheres, brainstem and cerebellar peduncles. The IACs are unremarkable. The cerebello-pontine angles are clear. The pituitary gland, the pineal gland, the optic chiasm are unremarkable. The osseous structures in the skull base are unremarkable. No definite calvarium fractures. Scanned paranasal sinuses are clear. IMPRESSION: 1. No evidence of established infarction, or intracranial or extracranial hemorrhage, would recommend MRI with DWI for further evaluation if still clinically warranted. 2. Appropriate age-related involutional changes. 3. No interval changes. Electronically Signed by: Jennifer Perez MD. (08/06/2023 03:54:05 EST)
[2023-08-06 04:13] LABS: CROSS MATCH (PRBC) COMPATIBLE (COMPATIBLE)
[2023-08-06] MEDS ORDERED: Sodium Chloride 0.9% 1000 ML 1,000 ML IV SCH (04:45)
[2023-08-06 05:12] VITALS: RESP 16
[2023-08-06 05:44] LABS: ANION GAP 15.4 MEQ/L (5-15); Creatinine 1 2.32 mg/dL (0.52-1.04); EST GLOMERULAR FILTRATION RATE 23.1 ML/MIN
[2023-08-06 05:51] LABS: Potassium 6.5 mmol/L (3.5-5.1)
[2023-08-06] MEDS ORDERED: D50W 50 ml Abboject IV ONE ×2 (05:59→06:36)
[2023-08-06] MEDS ORDERED: Lasix 20 MG/2 ML IV ONE (06:01)
[2023-08-06] MEDS ORDERED: Enulose 10 GM/15 ML PO ONE (06:03)
[2023-08-06] MEDS ORDERED: Lasix 20 MG/2 ML ONE (06:36)
[2023-08-06 07:18] VITALS: BP 99/60; PULSE 83; TEMP 98.1; O2SAT 99
== END 2023-08-06 07:35 | disposition short-term general hospital (02) ==
LOC: ED 02:06
DX: D64.9 Anemia, unspecified (principal); K92.1 Melena; E87.1 Hypo-osmolality and hyponatremia; E87.5 Hyperkalemia; E87.20 Acidosis, unspecified; I12.9 Hypertensive chronic kidney disease with stage 1 through stage 4 chronic kidney disease, or unspecified chronic kidney disease; E11.22 Type 2 diabetes mellitus with diabetic chronic kidney disease; N18.9 Chronic kidney disease, unspecified; E11.65 Type 2 diabetes mellitus with hyperglycemia; E72.20 Disorder of urea cycle metabolism, unspecified; I95.9 Hypotension, unspecified; R18.8 Other ascites; K74.60 Unspecified cirrhosis of liver; K92.2 Gastrointestinal hemorrhage, unspecified; R41.0 Disorientation, unspecified; E78.5 Hyperlipidemia, unspecified; E11.42 Type 2 diabetes mellitus with diabetic polyneuropathy; Z79.891 Long term (current) use of opiate analgesic; Z79.899 Other long term (current) drug therapy; Z72.0 Tobacco use; Z91.148 Patient's other noncompliance with medication regimen for other reason
CPT/HCPCS: 36000; 36415; 36430; 70450; 74176; 80048; 80053; 82140; 82150; 83605; 83690; 85025; 85610; 86850; 86900; 86901; 86922; 96374; 96375; 99285; 99291; P9016; J0612; J1815; J1940; J2405; A9270-GY